=== PATIENT | female | born 1980 | race Hispanic/Latino ===

== ENCOUNTER 2020-04-12 11:34 | Outpatient (CLI) | payer BC, SELFPAY ==
--- NOTE | ~2020-04-12 | XR_ITS ---
XR chest 2V DATE: 04/12/2020 11:52 INDICATION: Cough. Fever. Shortness of breath. Covid-positive. TECHNIQUE: PA and lateral views COMPARISON: 08/18/2014 PA and lateral chest FINDINGS: Normal heart size. No hilar or mediastinal enlargement. No pulmonary infiltrate or consolid ation, pleural effusion or pulmonary vascular congestion or pneumothorax. Postoperative changes of the left and right upper quadrants of the abdomen. IMPRESSION: No active cardiopulmonary disease Postoperative changes of left and right upper quadrants of the abdomen Reviewed, dictated and finalized at location A. LRY SORTER
== END 2020-04-12 11:35 | disposition home or self-care (01) ==
PROVIDERS: PCP Nurse Practitioner; Visit Provider Nurse Practitioner
DX: Z09 Encounter for follow-up examination after completed treatment for conditions other than malignant neoplasm (principal); Z86.19 Personal history of other infectious and parasitic diseases; R05 Cough; R50.9 Fever, unspecified; R06.02 Shortness of breath
CPT/HCPCS: 71046

== ENCOUNTER 2021-09-25 14:50 | Outpatient (CLI) | payer BC, SELFPAY ==
--- NOTE | ~2021-09-25 | US_ITS ---
EXAMINATION: US pelvic complete w TV DATE: 09/25/2021 15:43 INDICATION: Pelvic and perineal pain Comparison:No prior studies for comparison. TECHNIQUE: Multiple transabdominal and endovaginal sonographic images of the pelvis performed. FINDINGS: The uterus is surgically absent. The right ovary measures 3.4 x 3.5 x 1.8 cm and the left ovary is not visualized. There are small fol licles in each ovary. Normal doppler signal in both ovaries. There is free fluid in the pelvis. There are no abnormal masses seen on either side. IMPRESSION: 1. Unremarkable pelvic ultrasound. Reviewed, dictated and finalized at location A.
== END 2021-09-25 14:51 | disposition home or self-care (01) ==
PROVIDERS: PCP Nurse Practitioner; Visit Provider Nurse Practitioner
DX: R10.2 Pelvic and perineal pain (principal)
CPT/HCPCS: 76830; 76856

== ENCOUNTER 2021-10-24 09:07 | Emergency (ER) | payer BC, SELFPAY ==
--- NOTE | 2021-10-24 09:13 | ED.ALLEREA ---
HPI - Allergic Reaction General Chief complaint: Skin/Abscess/Foreign Body Stated complaint: Facial Swelling Time Seen by Provider: 10/24/21 09:35 Source: patient Mode of arrival: ambulatory Limitations: no limitations History of Present Illness HPI narrative: 40-year-old female presents with concern for facial pain and swelling. She reports pain on the inside of her mouth the top of her gum that started yesterday. Reports today the pain spread to her cheek. She reports it is tender. She denies fever, trouble swallowing, swollen lips or swollen tongue. She reports she has no top teeth, she has a full denture. She reports a denture is not new and does not cause her any discomfort. MD complaint: facial swelling Related Data Home Medications Medication Instructions Recorded Confirmed linaclotide 290 mcg capsule 290 mcg PO DAILY 12/29/19 10/24/21 (Linzess) galcanezumab-gnlm 120 mg/mL 120 mg subcut MONTHLY 02/06/21 10/24/21 subcutaneous pen injector gabapentin 300 mg capsule 300 mg PO QHS 08/15/21 10/24/21 rizatriptan 10 mg tablet 10 mg PO DAILY 08/15/21 10/24/21 Allergies Allergy/AdvReac Type Severity Reaction Status Date / Time aspirin Allergy Unknown Hives / Unverified 10/16/21 09:26 Red Face ondansetron Allergy Unknown Hives Verified 10/16/21 09:26 sumatriptan Allergy Unknown Hives Verified 10/16/21 09:26 Review of Systems Review of Systems: CONSTITUTIONAL: Denies malaise, chills, sweats, or fever. EYES: Denies visual changes, redness, or discharge. ENT: Denies rhinorrhea, congestion, sinus pain, otalgia or sore throat. Denies dental pain CARDIOVASCULAR: Denies chest pain, palpitations, or edema. RESPIRATORY: Denies cough or dyspnea. GASTROINTESTINAL: Denies abdominal pain, nausea, vomiting, SKIN: Reports left-sided facial tenderness and mild swelling near the mouth MUSCULOSKELETAL: Denies myalgia. NEUROLOGIC: Denies numbness, weakness, or headache. All systems reviewed & are unremarkable except as noted in HPI and below PMFSH Past Medical History Medical History (Updated 10/24/21 @ 09:48 by Isamar Moon NP) Dyslipidemia History of 2019 novel coronavirus disease (COVID-19) Hypothyroidism (acquired) Irritable bowel syndrome with constipation Migraine Rosacea Surgical History Surgical History (Updated 10/16/21 @ 09:58 by Argeila De La Cruz APRN) H/O removal of neck cyst 2006 H/O: hysterectomy 2014 History of 2000 and 2002 History of sleeve gastrectomy 09/2017 History of tubal ligation 2002 Family History Family History Other Diabetes mellitus Family history of coronary artery disease Hypertension Social History Social History Social History: one can of soda qd Smoking status: Never smoker Alcohol intake: current Alcohol use details: occasionally Comments At time of signature, agree with nursing past medical, surgical, social and family history. There is no relevant family history pertinent to the presenting complaint Exam Narrative: GENERAL: Well-appearing, well-nourished, and in no acute distress. HEAD: Normocephalic, atraumatic. EYES: PERRLA, sclera clear, and EOMI. ENT: Nares clear, turbinates pink, no rhinorrhea or epistaxis. Mucous membranes moist. TM pearly jovel with sharp light reflex bilaterally; no tragal tenderness. No soft palate edema. Tonsils not enlarged and without exudate. Erythema, purulent drainage noted at the juncture of the gumline in the inner lip, tenderness to the face near that area. Patient andontic NECK: Supple. No lymphadenopathy. CHEST: No respiratory distress. Clear to auscultation. No bony deformities, no asymmetry. Speaks in full sentences. HEART: Regular rate and rhythm. SKIN: Warm, dry, no visible rash. NEURO: Alert and oriented x3. No focal deficits. PSYCH: Normal mood and affect Course Cour
[2021-10-24 09:23] VITALS: BP 125/68; PULSE 70; RESP 16; TEMP 36.8; O2SAT 100
== END 2021-10-24 09:50 | disposition home or self-care (01) ==
PROVIDERS: Emergency Provider Nurse Practitioner; PCP Family Medicine
DX: L08.9 Local infection of the skin and subcutaneous tissue, unspecified (principal); E78.5 Hyperlipidemia, unspecified; E03.9 Hypothyroidism, unspecified; Z86.16 Personal history of COVID-19
CPT/HCPCS: 99213; G0463

== ENCOUNTER 2021-12-12 01:44 | Day surgery (SDC) | payer BC, SELFPAY ==
[2021-11-26 13:25] VITALS: BMI 31.2
[2021-12-12 06:10] VITALS: BP 125/78; PULSE 60; RESP 18; TEMP 36.6; O2SAT 99; BMI 31.5
[2021-12-12] MEDS: LACTATED RINGERS 1,000 ML 150 ML IV CONT (06:35)
--- NOTE | 2021-12-12 07:21 | WPDANESEPPF ---
Anes - Initial Pre Proc Eval Procedure: Operation Date: 12/12/21 07:30 Proposed Procedures p Screening Colonoscopy - Santo Domínguez MD Date/Time: 12/12/21 07:21 Surgeon: Santo Domínguez MD Pre Op Diagnosis: IBS-C; abdominal pain Patient Data Age: 40 Gender: F Height: 1.57 m Weight: 78.2 kg Last Vital Signs Temp 97.8 F 12/12/21 06:10 Pulse 60 12/12/21 06:10 Resp 18 12/12/21 06:10 BP 125/78 12/12/21 06:10 Pulse Ox 99 12/12/21 06:10 O2 Del Method Room Air 12/12/21 06:10 Allergies Allergy/AdvReac Type Severity Reaction Status Date / Time aspirin Allergy Unknown Hives / Verified 12/12/21 06:23 Red Face ondansetron Allergy Unknown Hives Verified 12/12/21 06:23 sumatriptan Allergy Unknown Hives Verified 12/12/21 06:23 Home Medications Medication Instructions Recorded Confirmed Type linaclotide 290 mcg capsule 290 mcg PO DAILY 12/29/19 12/12/21 History (Linzess) galcanezumab-gnlm 120 mg/mL 120 mg subcut MONTHLY 02/06/21 12/12/21 History subcutaneous pen injector (Emgality Pen) atorvastatin 10 mg tablet 10 mg PO QHS #90 tabs 06/15/21 12/12/21 Rx fluoxetine 40 mg capsule 40 mg PO DAILY #90 caps 07/10/21 12/12/21 Rx gabapentin 300 mg capsule 300 mg PO BID 08/15/21 12/12/21 History rizatriptan 10 mg tablet 10 mg PO DAILY 08/15/21 12/12/21 History levothyroxine 88 mcg tablet 88 mcg PO DAILY 11/26/21 12/12/21 History buspirone 10 mg tablet 10 mg PO TID #90 tabs 12/05/21 12/12/21 Rx plecanatide 3 mg tablet (Trulance) 3 mg PO DAILY #90 tabs 12/10/21 12/12/21 Rx Patient hx anesthesia problems: none Family hx anesthesia problems: none Results Review: All pre-operative results and documents have been reviewed as part of the pre-operative evaluation. [facility] Past Medical History Medical History Dyslipidemia History of 2019 novel coronavirus disease (COVID-19) Hypothyroidism (acquired) Irritable bowel syndrome with constipation Migraine Rosacea Surgical History Surgical History H/O removal of neck cyst 2006 H/O: hysterectomy 2014 History of 2000 and 2002 History of sleeve gastrectomy 09/2017 History of tubal ligation 2002 Family History Family History Other Diabetes mellitus Family history of coronary artery disease Hypertension Social History Social History Social History: one can of soda qd Smoking status: Never smoker Alcohol intake: current Alcohol use details: occasionally Substance use: former Substance use type: marijuana Other substance usage details: eidbles on occasion Living arrangements: with family Spiritual care concerns: No Anes - Eval Final PreProcedure Day of Procedure 12/12/21 07:21 Patient weight: overweight Heart: regular rate and rhythm Lungs: clear to auscultation Airway: Mallampati scale class II Neurological: alert and oriented Last oral intake: >/= 8 hours ASA classification: II Emergent: no Anesthetic plan: proceed Anesthesia type and monitoring: general GIVS and standard monitoring Results Review: All pre-operative results and documents have been reviewed as part of the pre-operative evaluation. Informed Consent: The patient's anesthetic plan and its attendant risks and benefits were discussed with the patient/family/POA. Questions were solicited and answers provided to the satisfaction of the patient/family/POA.
--- NOTE | 2021-12-12 07:24 | WPDHPUPDATE1 ---
History and Physical Update Update Date/Time: 12/12/21 07:24 History and Physical has been reviewed, including an updated exam of the patient. There are NO changes in the patient's condition. Risks, benefits, and alternatives have been discussed and questions answered. Patient agrees to proceed with procedure.
[2021-12-12 07:41] VITALS: BP 113/77; PULSE 62; RESP 21; O2SAT 99
[2021-12-12 07:51] VITALS: BP 120/88; PULSE 55; RESP 18; O2SAT 99
[2021-12-12 08:01] VITALS: BP 126/85; PULSE 52; RESP 17; O2SAT 99
== END 2021-12-12 08:05 | disposition home or self-care (01) ==
PROVIDERS: PCP Family Medicine; Visit Provider Internal Medicine Gastroenterology
PROC: 0DJD8ZZ Inspection of Lower Intestinal Tract, Via Natural or Artificial Opening Endoscopic (ICD-10-PCS; CPT 45378; principal; 2021-12-12 07:30)
DX: Z12.11 Encounter for screening for malignant neoplasm of colon (principal); K58.1 Irritable bowel syndrome with constipation; K64.8 Other hemorrhoids; E78.5 Hyperlipidemia, unspecified; E03.9 Hypothyroidism, unspecified; Z86.16 Personal history of COVID-19; Z98.84 Bariatric surgery status; F12.90 Cannabis use, unspecified, uncomplicated
CPT/HCPCS: 45378; J2704; J7120

== ENCOUNTER 2023-02-18 18:04 | Emergency (ER) | payer BC, SELFPAY ==
[2023-02-18 18:14] VITALS: BP 118/73; PULSE 73; RESP 18; TEMP 36.9; O2SAT 96
--- NOTE | 2023-02-18 18:22 | ED.URI ---
HPI - URI/Sore Throat General Chief Complaint: Upper Respiratory Infection Stated Complaint: throat/left ear/headache Source: patient and RN notes reviewed Mode of arrival: ambulatory Limitations: no limitations History of Present Illness HPI Narrative: Patient is a 42-year-old female who who presents with complaints of sore throat starting on . Patient states that on Friday, she developed a headache. she states that she developed left ear pain on Friday along with some mild nasal congestion. She states that the sore throat and headache has continued throughout this time. she also endorses an infrequent nonproductive cough. Denies known fevers. Related Data Home Medications Medication Instructions Recorded Confirmed linaclotide 290 mcg capsule 290 mcg PO DAILY 12/29/19 02/18/23 (Linzess) galcanezumab-gnlm 120 mg/mL 120 mg subcut MONTHLY 02/06/21 02/18/23 subcutaneous pen injector (Emgality Pen) gabapentin 300 mg capsule 300 mg PO BID 08/15/21 02/18/23 rizatriptan 10 mg tablet 10 mg PO DAILY 08/15/21 02/18/23 atogepant 30 mg tablet (Qulipta) 30 mg PO DAILY 09/16/22 02/18/23 omeprazole 40 mg capsule,delayed 40 mg PO DAILY 09/16/22 02/18/23 release Allergies Allergy/AdvReac Type Severity Reaction Status Date / Time aspirin Allergy Unknown Hives / Verified 02/18/23 18:22 Red Face ondansetron Allergy Unknown Hives Verified 02/18/23 18:22 sumatriptan Allergy Unknown Hives Verified 02/18/23 18:22 Review of Systems Review of Systems: CONSTITUTIONAL: Denies fever, chills, or sweats. EYES: Denies visual changes, redness, or discharge. ENT: Reports left otalgia and sore throat. Reports congestion. CARDIOVASCULAR: Denies chest pain, palpitations, or edema. RESPIRATORY: Reports cough but denies dyspnea. GASTROINTESTINAL: Denies abdominal pain, nausea, vomiting, or diarrhea. GENITOURINARY: Denies dysuria or hematuria. SKIN: Denies rash or itching. MUSCULOSKELETAL: Denies back pain, joint pain, or myalgia. NEUROLOGIC: Denies numbness or weakness. Reports headache. Pertinent positives per HPI. PMF Past Medical History Medical History Colon cancer screening Dyslipidemia Heart murmur History of 2019 novel coronavirus disease (COVID-19) Hypothyroidism (acquired) Irritable bowel syndrome with constipation Migraine Rosacea Screening for breast cancer Soreness breast Surgical History Surgical History H/O removal of neck cyst 2006 H/O: hysterectomy 2014 History of 2000 and 2002 History of sleeve gastrectomy 09/2017 History of tubal ligation 2002 Family History Family History Other Diabetes mellitus Family history of coronary artery disease Hypertension Social History Social History Social History: one can of soda qd Smoking status: Never smoker Alcohol intake: current Alcohol use details: occasionally Substance use: former Substance use type: marijuana Other substance usage details: eidbles on occasion Lack of Transportation: No Lack of Food: Never True Current Housing: I Have Housing Concerned About Future Housing: No Difficulty Paying Gas/Electric Bills: Decline to Answer Difficulty Paying for Meds: Decline to Answer Currently Unemployed: No Education: High School Diploma/GED Difficulty w/ Childcare or Family Care: No Living arrangements: with family Gender identity (if verbalized by the patient): Female Spiritual care concerns: No Agree to blood products: Yes Comments At the time of my signature, I reviewed and agree with the nursing past medical, surgical, social, and family history. There is no relevant family history pertinent to the patient complaint. Exam Narrative: GENERAL:
== END 2023-02-18 18:47 | disposition home or self-care (01) ==
PROVIDERS: Emergency Provider Nurse Practitioner; PCP Family Medicine
DX: J02.9 Acute pharyngitis, unspecified (principal); E78.5 Hyperlipidemia, unspecified; R01.1 Cardiac murmur, unspecified; E03.9 Hypothyroidism, unspecified; Z86.16 Personal history of COVID-19; Z98.84 Bariatric surgery status
CPT/HCPCS: 87081; 87880; 99213; G0463

== ENCOUNTER → 2023-06-30 12:34 | Outpatient (CLI) | payer BC, SELFPAY ==
--- NOTE | ~2023-06-30 | MM_ITS ---
EXAMINATION: MM screening michael BI w caden HISTORY: Screening TECHNIQUE: Craniocaudal and mediolateral oblique 3-D tomosynthesis images were obtained and synthetic 2-D images were generated. CAD analysis was submitted and interpreted. COMPARISON: No prior mammogram is available for comparison at this institution. BREAST PARENCHYMAL COMPOSITION: Not dense: There are scattered areas of fibroglandular density. FINDINGS: There are clustered nodular asymmetries in the upper outer quadrant of the right breast. Th ere is no mammographic evidence for malignancy in the left breast. IMPRESSION: 1. Clustered nodular asymmetries in the upper outer quadrant of the right breast. 2. Additional mammographic views and possible breast ultrasound are recommended. BI-RADS Category 0: Incomplete: Needs additional imaging evaluation. Reviewed, dictated and finalized at location A. TANK BUILDER IMPRESSION: 1. Clustered nodular asymmetries in the upper outer quadrant of the right breas t. 2. Additional mammographic views and possible breast ultrasound are recommended . BI-RADS Category 0: Incomplete: Needs additional imaging evaluation.
== END ==
PROVIDERS: PCP Nurse Practitioner Family; Visit Provider Nurse Practitioner Family
DX: Z12.31 Encounter for screening mammogram for malignant neoplasm of breast (principal); R92.8 Other abnormal and inconclusive findings on diagnostic imaging of breast
CPT/HCPCS: 77063; 77067

== ENCOUNTER 2023-07-28 08:39 | Outpatient (CLI) | payer BC, SELFPAY ==
--- NOTE | ~2023-07-28 | MMUS_ITS ---
EXAMINATION: MM diagnostic michael RT w caden, US breast RT limited HISTORY: Clustered nodular asymmetries reported in upper outer quadrant of right breast on June 062023 screening mammogram TECHNIQUE: Additional 3-D tomosynthesis images of the right breast were performed and synthetic 2-D i mages were generated. CAD analysis was submitted and interpreted. High resolution upper outer quadran t right breast ultrasound was performed. COMPARISON: June 30, 2023 bilateral screening mammogram FINDINGS: MAMMOGRAPHIC FINDINGS: Slightly nodular fibroglandular stroma. No suspicious mass, architectural distortion, malignant calci fication, skin thickening or retraction is detected. ULTRASOUND: 10:00 5 cm from nipple: Contiguous 5.6 and 3.4 mm cysts 10-11:00 7 cm from nipple: 3.5 x 4.6 mm simple cyst 11:00 5 cm from nipple: Septated approximately 5.7 x 11 mm cyst No suspicious mass or shadowing is detected. IMPRESSION: 1. Benign cysts; no mammographic or sonographic evidence of malignancy 2. Routine annual mammographic screening is recommended BI-RADS Category 2: Benign finding(s). Reviewed, dictated and finalized at location A. IMPRESSION: 1. Benign cysts; no mammographic or sonographic evidence of malignancy 2. Routine annual mammographic screening is recommended BI-RADS Category 2: Benign finding(s).
== END 2023-07-28 08:40 ==
PROVIDERS: PCP Nurse Practitioner Family; Visit Provider Family Medicine
DX: R92.8 Other abnormal and inconclusive findings on diagnostic imaging of breast (principal)
CPT/HCPCS: 76642; 77061; 77065; G0279

== ENCOUNTER 2023-11-28 12:10 | Outpatient (CLI) | payer BC, SELFPAY ==
[2023-11-28 12:31] LABS: Hematocrit 38.9 % (37.0-47.0); Hemoglobin 12.6 g/dL (12.0-15.0); Mean Corpuscular HGB Conc 32.4 g/dl (32-36); Mean Corpuscular Hemoglobin 28.1 pg (26-34); Mean Corpuscular Volume 86.6 fl (80-100); Platelet Count Result 311 k/mm3 (150-375); Red Blood Count 4.49 M/mm3 (4.2-5.4); Red Cell Distribution Width 12.9 % (11.5-14.5); White Blood Count 6.6 K/mm3 (4.5-10.0)
[2023-11-28 12:46] LABS: Alanine Aminotransferase 12 U/L (6-35); Albumin Level 4.5 g/dL (3.5-5.1); Alkaline Phosphatase 83 U/L (38-126); Anion Gap 9 mmol/L (4-12); Aspartate Amino Transferase 22 U/L (14-36); Bilirubin,Total 0.6 mg/dL (0.2-1.3); Blood Urea Nitrogen 7 mg/dL (7-17); Calcium 9.2 mg/dL (8.4-10.2); Carbon Dioxide 28 mmol/L (22-30); Chloride 103 mmol/L (98-107); Cholesterol 209 mg/dL (0-200); Estimated Glomerular Filt Rate > 60; Glucose 83 mg/dL (65-110); HDL Direct 53 mg/dL; Hemoglobin A1C 5.7 % (<5.7); Potassium 3.7 mmol/L (3.4-5.0); Sodium 140 mmol/L (137-145); Triglycerides 89 mg/dL (<150)
[2023-11-28 12:57] LABS: LDL Cholesterol Direct 117 mg/dL
[2023-12-03 10:33] LABS: Vitamin D 1,25 (OH)2 Total 63 pg/mL (18-72); Vitamin D2 1,25 (OH)2 <8 pg/mL; Vitamin D3 1,25 (OH)2 63 pg/mL
[2023-12-08 00:28] LABS: Estradiol, Ultrasensitive 47 pg/mL
== END 2023-11-28 12:11 | disposition home or self-care (01) ==
LOC: ANHLAB 12:11
PROVIDERS: PCP Nurse Practitioner Family; Visit Provider Nurse Practitioner Family
DX: Z00.00 Encounter for general adult medical examination without abnormal findings (principal); E03.9 Hypothyroidism, unspecified; E78.5 Hyperlipidemia, unspecified; F32.A Depression, unspecified; F41.9 Anxiety disorder, unspecified; G43.909 Migraine, unspecified, not intractable, without status migrainosus; K58.1 Irritable bowel syndrome with constipation; L71.9 Rosacea, unspecified; R73.03 Prediabetes; E55.9 Vitamin D deficiency, unspecified; E53.8 Deficiency of other specified B group vitamins; Z13.29 Encounter for screening for other suspected endocrine disorder
CPT/HCPCS: 36415; 80053; 80061; 82607; 82652; 82670; 83036; 84443; 85027

== ENCOUNTER 2024-01-14 11:28 | Outpatient (CLI) | payer BC, SELFPAY ==
[2024-01-14 22:01] LABS: Free T4 Free Thyroxine Reflex 0.71 ng/dL (0.78-2.19)
== END 2024-01-14 11:29 | disposition home or self-care (01) ==
LOC: ANHGOSHLAB 11:30
PROVIDERS: PCP Family Medicine; Visit Provider Family Medicine
DX: E03.9 Hypothyroidism, unspecified (principal)
CPT/HCPCS: 36415; 84439; 84443

== ENCOUNTER 2024-07-13 08:18 | Outpatient (CLI) | payer BC, SELFPAY ==
--- NOTE | ~2024-07-13 | MM_ITS ---
EXAMINATION: MM diagnostic michael BI w caden HISTORY: Bilateral breast pain TECHNIQUE: 3-D tomosynthesis images of the breasts were performed and synthetic 2-D images were gener ated. CAD analysis was submitted and interpreted. COMPARISON: 06/30/2023 BREAST PARENCHYMAL COMPOSITION:Not Dense. There are scattered areas of fibroglandular density. FINDINGS: Parenchymal pattern of the breasts is unchanged. No suspicious mass lesion or distortion. N o suspicious microcalcifications. IMPRESSION: No mammographic evidence for malignancy. BI-RADS Category 1: Negative Reviewed, dictated and finalized at location .
== END 2024-07-13 08:19 | disposition home or self-care (01) ==
LOC: MICIMG 08:18
PROVIDERS: PCP Family Medicine; Visit Provider Student in an Organized Health Care Education/Training Program
DX: N64.4 Mastodynia (principal)
CPT/HCPCS: 77062; 77066; G0279

== ENCOUNTER 2024-08-18 15:37 | Outpatient (CLI) | payer BC, SELFPAY ==
--- OUTSIDE RECORDS SUMMARY | 2024-08-18 16:42 | XMS_ITS | Clinical Summary ---
Author Organization [facility] Address [address] [place] [address] Care Team Providers Care Shirt Sorter Name Role Phone Laith Krishnamurthy MD Primary Care Provider Travis Fuentes STATION BAGGAGE AGENT Unavailable [phone] Allergies Active Allergy Reactions Criticality Noted Date Comments Aspirin Hives Medium Ibuprofen Stomach upset Low 04/27/2023 GI inflammation Ondansetron Hcl Hives Medium 10/09/2017 Medications levothyroxine sodium (TIROSINT) 88 mcg capsule 1 capsule (88 mcg total) 06/28/2017 Active Linzess 290 mcg capsule Take 1 capsule (290 mcg total) by mouth daily 05/10/2020 Active atorvastatin (LIPITOR) 10 mg tablet Take 1 tablet (10 mg total) by mouth daily 07/03/2020 Active ubrogepant (Ubrelvy) 100 mg tablet TAKE 1 TABLET BY MOUTH AT ONSET OF HEADACHE, MAY REPEAT ONCE IN 2 HOURS IF NEEDED, MAX 2 TABS/24 HRS 10 tablet 5 01/15/2021 Active busPIRone (BUSPAR) 5 mg tablet Take 2 tablets (10 mg total) by mouth 3 (three) times a day Active Qulipta 60 mg tablet Take 1 tablet by mouth daily Active buPROPion XL (WELLBUTRIN XL) 300 mg 24 hr tablet Take 1 tablet (300 mg total) by mouth every morning 11/20/2023 Active estradioL (ESTRACE) 1 mg tablet Take 1 tablet (1 mg total) by mouth daily Active pantoprazole DR (PROTONIX) 40 mg EC tablet Take 1 tablet (40 mg total) by mouth every morning 11/20/2023 Active phentermine (ADIPEX-P) 37.5 mg tablet Take 1 tablet (37.5 mg total) by mouth every morning Active sucralfate (CARAFATE) 1 gram tablet Take 1 tablet (1 g total) by mouth 4 (four) times a day Active HYDROcodone-sridhar taminophen (NORCO) 5-325 mg per tabletIndicatio ns:Pain Take 1 tablet by mouth every 6 (six) hours as needed for pain 20 tablet 12/12/2023 Active oxyBUTYnin XL (DITROPAN-XL) 5 mg 24 hr tablet Take 1 tablet (5 mg total) by mouth daily for 14 days 14 tablet 12/12/2023 Active tamsulosin (FLOMAX) 0.4 mg extended release capsule Take 1 capsule (0.4 mg total) by mouth daily with dinner for 14 days 14 capsule 12/12/2023 Active Active Problems Problem Noted Date Diagnosed Date Kidney stone on left side 12/11/2023 Pyelonephritis 12/01/2023 Left ureteral stone 11/30/2023 Unilateral headache 08/25/2020 Chronic migraine without aur a without status migrainosus, not intractable 07/18/2020 Chronic tension-type headache, not intractable 0 07/18/2020 Surgical History Surgery Date Site/Laterality Comments OTHER SURGICAL HISTORY brachial cleft cyst left neck: excision. TUBAL LIGATION HYSTERECTOMY CHOLECYSTECTOMY BARIATRIC SURGERY gastric sleeve Medical History Medical History Date Comments Hx Other Medical C-sxn x 2 Hx Other Medical 2007 brachial cleft cyst left neck Hypothyroidism Hyperlipidemia Anxiety Depression Headache, tension-type Migraine Family History Medical History Relation Name Comments Other Father Healthy; Diabetes type II Maternal Grandmother D M Type II; Migraines Mother Other Mother Healthy; Diabetes type II Paternal Grandfather D M Type II; Relation Name Status Comments Father Alive Maternal Grandmother Alive Mother Alive Paternal Grandfather Alive Social History Tobacco Use Types Packs/Day Years Used Date Smoking Tobacco: Never Smokeless Tobacco: Never Alcohol Use Standard Drinks/Week Comments Yes 0 (1 standard drink = 0.6 oz pur e alcohol) [facility] Utilities Answer Date Recorded In the past 12 months has [employer], [employer], or [employer] threatened to shut off services in your home? No 12/01/2023 Social Connection and Isolat ion Panel [NHANES] Answer Date Recorded In a typical week, how many times do you talk on the phone with family, friends, or neighbors? More than three times a week 12/01/2023 How often do you get togethe r with friends or relatives? More than three times a week 12/01/2023 How often do you attend chur ch or buddhist services? Never 12/01/2023 Do you belong to any clubs o r organizations such as taoist groups, unions, fraternal or athletic groups, or school groups? No 12/01/2023 How often do you attend meet ings of the clubs or organizations you belong to? Never 12/01/2023 Are you , , di vorced, , never , or living with a partner? Living with partner 12/01/2023 AUDIT-C Answer Date Recorded Q1: How often do you have a drink containing alc ohol? Monthly or less 12/11/2023 Q2: How many drinks containi ng alcohol do you have on a typical day when you are drinking? 1 or 2 12/11/2023 Q3: How often do you have si x or more drinks on one occasion? Less than monthly 12/11/2023 Overall Financial Resource Strain (CARDIA) Answe r Date Recorded How hard is it for you to pa y for the very basics like food, housing, medical care, and heating? Not hard at all 12/01/2023 PHQ-2 Answer Date Recorded PHQ-2 Total Score (If total score is 3 or more points, staff should administer the PHQ-9) 0 12/11/2023 Hunger Vital Sign Answer Date Recorded Within the past 12 months, y ou worried that your food would run out before you got the money to buy more. Never true 12/01/19 24 Within the past 12 months, t he food you bought just didn't last and you didn't have money to get more. Never true 12/01/2023 PRAPARE - Transportation Answer Date Re corded In the past 12 months, has l ack of transportation kept you from medical appointments or from getting medications? No 11/03 In the past 12 months, has l ack of transportation kept you from meetings, work, or from getting things needed for daily living? No 12/01/2023 Housing Stability Vital Sign Answer Fco e Recorded In the last 12 months, was t here a time when you were not able to pay the mortgage or rent on time? No 12/01/2023 In the past 12 months, how m any times have you moved where you were living? 0 12/01/2023 At any time in the past 12 m [facility], were you homeless or living in a jail (including now)? No 12/01/2023 Personal Safety Answer Date Recorded Have you ever been in or are you currently in a harmful physical or emotional relationship or is someone making you feel afraid or unsafe? 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, cafeteria server Not on file Not on file Not on file Obstetrics History Last Filed Vital Signs Vital Sign Reading Time Taken Comments Blood Pressure 128/85 12/12/2023 7:40 AM CDT Pulse 68 12/12/2023 7:40 AM CDT Temperature 36.7 C (98.1 F) 12/12/2023 7:40 AM CDT Respiratory Rate 14 12/12/2023 7:40 AM CDT Oxygen Saturation 100% 12/12/2023 7:40 AM CDT Inhaled Oxygen Concentration - - Weight 99 kg (218 lb 4.8 oz) 12/11/2023 11:45 PM CDT Height 157.5 cm (5' 2 ) 12/11/2023 11:45 PM CDT Body Mass Index 39.93 12/11/2023 11:45 PM CDT Plan of Treatment Health Maintenance Due Date Last Done Comments Breast Cancer Screening-Mammogram 1980 Hepatitis C Screening 1980 DTaP/Tdap/Td Vaccine (1 - Tdap) 12/23/1991 Varicella Vaccines (1 of 2 - 13+ 2-dose series) 1993 Hepatitis B Screening 1998 Regular Well Visit/Exam 18-64 1998 Influenza Vaccine (#1) 2024 Depression Screening 12/10/2024 12/11/2023 HPV Vaccines Aged Out No longer eligi ble based on patient's age to complete this topic Pneumococcal vaccine <65 Aged Out No longer eligible based on patient's age to complete this topic Medical Devices Implanted Type Area Field Supervisor Seed Production Device Identifier Shelf Expiration Date Model / Serial / Lot [employer] Enrique Contour 6fr 24cm Large Inner Lumen Low Profile Bladder Yaya Taper Latex Free 180-222 - [id number] Implanted:Qty: 1 on 11/30/2023 by Harley Marcano MD at [facility] Left: Ureter [employer] Enrique 04/11/2026 [id number] / / [id number] Insurance [facility] ANTH ACCESS CHOICE Advance Directives For more information, please contact: [phone] * Full Code (Latest Code Status on File) Date Activated Date Inactivated Comments 12/11/2023 10:38 AM 12/12/2023 3:47 PM * Full Code Date Activated Date Inactivated Comments 11/30/2023 11:03 AM 12/03/2023 6:13 PM Care Teams Shirt Sorter Relationship Specialty Start Date End Date Laith Krishnamurthy MD PCP - General 03/28/19 Travis Fuentes NP Nurse Practitioner Urology 12/03/23
--- OUTSIDE RECORDS SUMMARY | 2024-08-18 16:42 | XMS_ITS | Encounter Summary ---
Author Organization [facility] Address [address] [place] [address] Phone Care Team Providers Care Wastewater Treatment Plant Supervisor Name Role Phone Laith Krishnamurthy MD Primary Care Provider Emy Pepe APRN, GARMENT SORTER Unavailable +- [phone] Tono Wade MD Unavailable [phone] Reason for Visit * Reason Comments Medication Refill Encounter Details Date Type Department Care Team (Late st Contact Info) Description 03/12/2020 Refill [facility] - Neurology - [place] #1 [place] [address] Tono Wade MD #2 [place] [address] Medication Refill Social History Tobacco Use Types Packs/Day Years Used Date Smoking Tobacco: Never Smokeless Tobacco: Never Alcohol Use Standard Drinks/Week Comments Yes 0 (1 standard drink = 0.6 oz pur e alcohol) occassional Comments No Sex and Gender Information Value Date Recorded Sex Assigned at Not on file Legal Sex Female 8:52 PM CDT Gender Identity Not on file Sexual Orientation Not on file COVID-19 Exposure Response Date Recorded In the last month, have you been in contact with someone who was confirmed or suspected to have Coronavirus / COVID-19? No / Unsure 02/18/2020 9:33 AM CDT documented as of this encounter Plan of Treatment Upcoming Encounters Date Type Department Care Team (Late st Contact Info) Description 08/27/2024 10:45 AM CDT Procedure Visit [facility] - Neurology [facility] [address] [place] [address] Emy Pepe APRN, GARMENT SORTER [address] [place] [address] Tono Wade MD [address] [place] [address] documented as of this encounter Visit Diagnoses Diagnosis Migraine without aura and without status migrainosus, not intractable Migraine without aura, without mention of intractable migraine without mention of status migrainosus documented in this encounter Care Teams Wastewater Treatment Plant Supervisor Relationship Specialty Start Date End Date Laith Krishnamurthy MD PCP - General Family Medicine 07/04/17 Emy Pepe APRN, GARMENT SORTER [address] [place] [address] Nurse Practitioner Advanced Practice Nurse 08/27/22 Tono Wade MD [address] [place] [address] Consulting Physician Neurology 05/28/24 documented as of this encounter
--- OUTSIDE RECORDS SUMMARY | 2024-08-18 16:42 | XMS_ITS | Encounter Summary ---
Author Organization [facility] Address [address] [place] [address] Phone Care Team Providers Care Industrial Engineering Intern Name Role Phone Laith Krishnamurthy MD Primary Care Provider Emy Pepe APRN, SANITARIAN Unavailable Tono Wade MD Unavailable [phone] Reason for Visit * Reason Comments Medication Refill Encounter Details Date Type Department Care Team (Late st Contact Info) Description 03/12/2023 Refill [facility] - Neurology - [place] [address]2 [place] [phone] Emy Pepe, STEPHANIA, SANITARIAN [address] [place] [address] Medication Refill Social History Tobacco Use Types [...] on file Sexual Orientation Not on file documented as of this encounter Miscellaneous Notes * Telephone Encounter - Carolina Tobar RN - 03/14/2023 11:20 AM CST Medication failed the protocol, provider to review and approve the medication order if appropriate. Requested Prescriptions Pending Prescriptions Disp Refills Ubrelvy 100 MG Tablet [Pharmacy Med Name: UBRELVY 100 MG TABLET] 16 Tablet 2 Sig: TAKE 1 TABLET BY MOUTH ONCE NEEDED FOR OTHER. *PA DENIED* Not Delegated - Off Protocol Failed - 03/12/2023 8:08 AM Failed - This refill cannot be delegated Passed - Visit with relevant provider in past 12 months or upcoming 90 days Recent Visits Date Type Provider Dept 10/11/22 Telemedicine Emy Pepe APRN, EDGRAD [facility] 08/27/22 Office Visit Emy Pepe APRN, EDGARD [facility] Neurology [facility] Showing recent visits within past 365 days and meeting all other requirements Future Appointments No visits were found meeting these conditions. Showing future appointments within next 90 days and meeting all other requirements STANT BOOKKEEPER documented in this encounter Plan of Treatment Upcoming Encounters Date Type Department Care Team (Late st Contact Info) Description 08/27/2024 10:45 AM CDT Procedure [facility] - Neurology [facility] #2 [place] [address] Emy Pepe APRN, SANITARIAN [address] [place] [address] Tono Wade MD [address] [place] [address] documented as of this encounter Visit Diagnoses Diagnosis Episodic migraine documented in this encounter Care Teams Industrial Engineering Intern Relationship Specialty Start Date End Date Laith Krishnamurthy MD PCP - General Family Medicine 07/04/17 Emy Pepe APRN, SANITARIAN [address] [place] [address] Nurse Practitioner Advanced Practice Nurse 08/27/22 Tono Wade MD [address]2 [place] [address] Consulting Physician Neurology 05/28/24 documented as of this encounter
--- OUTSIDE RECORDS SUMMARY | 2024-08-18 16:42 | XMS_ITS | Encounter Summary ---
Author Organization [facility] Address [address] [place] [address] Phone Care Team Providers Care Panel Installer Name Role Phone Laith Krishnamurthy MD Primary Care Provider Emy Pepe APRN, CARPENTER ROUGH Unavailable Tono Wade MD Unavailable [phone] Reason for Visit * Reason Comments Medication Refill Encounter Details Date Type Department Care Team (Late st Contact Info) Description 12/24/2022 Refill [facility] - Neurology [facility] #2 [place] [phone] Emy Pepe APRN, CARPENTER ROUGH [address] [place] [address] Medication Refill Social History Tobacco Use Types [...] Telephone Encounter - Carolina Tobar RN - 12/25/2022 8:16 AM CDT Medication failed the protocol, provider to review and approve the medication order if appropriate. Requested Prescriptions Pending Prescriptions Disp Refills Ubrelvy 100 MG Tablet [Pharmacy Med Name: UBRELVY 100 MG TABLET] 16 Tablet 2 Sig: TAKE 1 TABLET BY MOUTH ONCE NEEDED FOR OTHER. *PA DENIED* Not Delegated - Off Protocol Failed - 12/24/2022 7:45 PM Failed - This refill cannot be delegated Passed - Visit with relevant provider in past 12 months or upcoming 90 days Recent Visits Date Type Provider Dept 10/11/22 Telemedicine Emy Pepe APRN, EDGARD [facility] 08/27/22 Office Visit Emy Pepe APRN, EDGARD [facility] Neurology [facility] Showing recent visits within past 365 days and meeting all other requirements Future Appointments No visits were found meeting these conditions. Showing future appointments within next 90 days and meeting all other requirements documented in this encounter Plan of Treatment Upcoming Encounters Date Type Department Care Team (Late st Contact Info) Description 08/27/2024 10:45 AM CDT Procedure [facility] - Neurology [facility] #[address] [place] [address] Emy Pepe APRN, CARPENTER ROUGH [address] [place] [address] Tono Wade MD #2 [place] [address] documented as of this encounter Visit Diagnoses Diagnosis Episodic migraine documented in this encounter Care Teams Panel Installer Relationship Specialty Start Date End Date Laith Krishnamurthy MD PCP - General Family Medicine 07/04/17 Emy Pepe APRN, CARPENTER ROUGH [address] [place] [address] Nurse Practitioner Advanced Practice Nurse 08/27/22 Tono Wade MD [address] [address] Consulting Physician Neurology 05/28/24 documented as of this encounter
--- OUTSIDE RECORDS SUMMARY | 2024-08-18 16:42 | XMS_ITS | Encounter Summary ---
Author Organization [facility] Address [address] [place] [address] Phone Care Team Providers Care Presentation Designer Name Role Phone Laith Krishnamurthy MD Primary Care Provider Emy Pepe APRN, LEGAL INSTRUCTOR Unavailable Tono Wade MD Unavailable Encounter Details Date Type Department Care Team (Late st Contact Info) Description 08/17/2024 Telephone [facility] - Neurology [facility] #2 [place] [address] Tono Wade MD #2 [place] [address] Social History Tobacco Use Types Packs/Day Years [...] encounter Miscellaneous Notes * Telephone Encounter - Chanel Arrington RN - 08/17/2024 1:11 PM CDT LVM for return call. No auth on file for Botox at this time. Will need to reschedule. documented in this encounter Plan of Treatment Upcoming Encounters Date Type Department Care Team (Late st Contact Info) Description 08/27/2024 10:45 AM CDT Procedure Visit [facility] - Neurology [facility] #2 [place] [address] Emy Pepe APRN, LEGAL INSTRUCTOR [address] [place] [address] Tono Wade MD [address] [place] [address] documented as of this encounter Visit Diagnoses Not on filedocumented in this encounter Care Teams Presentation Designer Relationship Specialty Start Date End Date Laith Krishnamurthy MD PCP - General Family Medicine 07/04/17 Emy Pepe APRN, LEGAL INSTRUCTOR [address] [place] [address] Nurse Practitioner Advanced Practice Nurse 08/27/22 Tono Wade MD [address] [place] [address] Consulting Physician Neurology 05/28/24 documented as of this encounter
--- OUTSIDE RECORDS SUMMARY | 2024-08-18 16:42 | XMS_ITS | Encounter Summary ---
Author Organization [facility] Address [address] [place] [address] Phone Care Team Providers Care Drapery Seamstress Name Role Phone Laith Krishnamurthy MD Primary Care Provider Emy Pepe APRN, FUNERAL ASSISTANT Unavailable + [phone] Tono Wade MD Unavailable [phone] Reason for Visit * Reason Comments Medication Refill Encounter Details Date Type Department Care Team (Late st Contact Info) Description 11/24/2019 Refill [facility] Neurology [facility] #1 [facility] [place] [address] Tono Wade MD #2 [place] [address] Medication Refill Social History Tobacco [...] on file documented as of this encounter Plan of Treatment Upcoming Encounters Date Type Department Care Team (Late Contact Info) Description 08/27/2024 10:45 AM CDT Procedure Visit [facility] Neurology - [place] #2 [place] [address] Emy Pepe APRN, FUNERAL ASSISTANT #2 [place] [address] Tono Wade MD #2 [place] [address] documented as of this encounter Visit Diagnoses Not on filedocumented in this encounter Care Teams Drapery Seamstress Relationship Specialty Start Date End Date Laith Krishnamurthy MD PCP - General Family Medicine 07/04/17 Emy Pepe APRN, FUNERAL ASSISTANT [address] [place] [address] Nurse Practitioner Advanced Practice Nurse 08/27/22 Tono Wade MD #[address] [place] [address] Consulting Physician Neurology 05/28/24 documented as of this encounter
--- OUTSIDE RECORDS SUMMARY | 2024-08-18 16:42 | XMS_ITS | Encounter Summary ---
Author Organization [facility] Address [address] [place] [address] Phone Care Team Providers Care Accountancy Professor Name Role Phone Laith Krishnamurthy MD Primary Care Provider Emy Pepe APRN, LEAD DEVELOPER Unavailable + [phone] Tono Wade MD Unavailable [phone] Reason for Visit * Reason Comments Medication Refill Encounter Details Date Type Department Care Team (Late st Contact Info) Description 11/10/2019 Refill [facility] Neurology [facility] #1 [facility] [place] [address] Tono Wade MD #2 [place] [address] Medication Refill Social History Tobacco [...] Description 08/27/2024 10:45 AM CDT Procedure Visit [facility] Neurology - [place] #2 [place] [address] Emy Pepe APRN, LEAD DEVELOPER [address]2 [place] [address] Tono Wade MD #2 [place] [address] documented as of this encounter Visit Diagnoses Not on filedocumented in this encounter Care Teams Accountancy Professor Relationship Specialty Start Date End Date Laith Krishnamurthy MD PCP - General Family Medicine 07/04/17 Emy Pepe APRN, LEAD DEVELOPER #[address] [place] [address] Nurse Practitioner Advanced Practice Nurse 08/27/22 Tono Wade MD #2 [place] [address] Consulting Physician Neurology 05/28/24 documented as of this encounter
--- OUTSIDE RECORDS SUMMARY | 2024-08-18 16:42 | XMS_ITS | Encounter Summary ---
Author Organization [facility] Address [address] [place] [address] Phone Care Team Providers Care Enterostomal Nurse Name Role Phone Laith Krishnamurthy MD Primary Care Provider Emy Pepe APRN, QUILLER MACHINE FIXER Unavailable + [phone] Tono Wade MD Unavailable [phone] Reason for Visit * Reason Comments Medication Refill Encounter Details Date Type Department Care Team (Late st Contact Info) Description 12/30/2019 [facility]ill [facility] - [place] #1 [place] [address] Tono Wade MD #[address] [place] [address] Medication Refill Social History Tobacco [...] encounter Miscellaneous Notes * Telephone Encounter - Natasha Carvajal RN - 12/31/2019 7:58 AM CDT Refill requested too soon. Script sent to pharmacy 9 days ago documented in this encounter Plan of Treatment Upcoming Encounters Date Type Department Care Team (Late st Contact Info) Description 08/27/2024 10:45 AM CDT [facility] #2 [place] [address] Emy Pepe APRN, QUILLER MACHINE FIXER #2 [place] [address] Tono Wade MD #2 [place] [address] documented as of this encounter Visit Diagnoses Not on filedocumented in this encounter Care Teams Enterostomal Nurse Relationship Specialty Start Date End Date Laith Krishnamurthy MD PCP - General Family Medicine 07/04/17 Emy Pepe APRN, QUILLER MACHINE FIXER [address] [place] [address] Nurse Practitioner Advanced Practice Nurse 08/27/22 Tono Wade MD #[address] [place] [address] Consulting Physician Neurology 05/28/24 documented as of this encounter
--- OUTSIDE RECORDS SUMMARY | 2024-08-18 16:42 | XMS_ITS | Encounter Summary ---
Author Organization [facility] Address [address] [place] [address] Phone Care Team Providers Care Cd Mixer Name Role Phone Laith Krishnamurthy MD Primary Care Provider Emy Pepe APRN, ENTERPRISE SECURITY ARCHITECT Unavailable + [phone] Tono Wade MD Unavailable [phone] Reason for Visit * Reason Comments Medication Refill Encounter Details Date Type Department Care Team (Late st Contact Info) Description 2019 Refill [facility] Neurology [facility] #1 [facility] [address] Tono Wade MD #2 [place] [address] Medication Refill Social History Tobacco [...] Description 08/27/2024 10:45 AM CDT Procedure Visit [facility] Neurology - [place] #2 [place] [address] Emy Pepe APRN, ENTERPRISE SECURITY ARCHITECT #2 [place] [address] Tono Wade MD #2 [place] [address] documented as of this encounter Visit Diagnoses Not on filedocumented in this encounter Care Teams Cd Mixer Relationship Specialty Start Date End Date Laith Krishnamurthy MD PCP - General Family Medicine 07/04/17 Emy Pepe APRN, ENTERPRISE SECURITY ARCHITECT #[address] [place] [address] Nurse Practitioner Advanced Practice Nurse 08/27/22 Tono Wade MD #[address] [place] [address] Consulting Physician Neurology 05/28/24 documented as of this encounter
--- OUTSIDE RECORDS SUMMARY | 2024-08-18 16:42 | XMS_ITS | Encounter Summary ---
Author Organization [facility] Address [address] [place] [address] Phone Care Team Providers Care Line Controller Name Role Phone Laith Krishnamurthy MD Primary Care Provider Emy Pepe APRN, CLINICAL DOCUMENT IMPROVEMENT EDUCATOR Unavailable Tono Wade MD Unavailable [phone] Reason for Visit * Reason Comments Medication Refill Encounter Details Date Type Department Care Team (Late st Contact Info) Description 07/08/2023 Refill [facility] - Neurology [facility] #2 [place] [address] Emy Pepe APRN, CLINICAL DOCUMENT IMPROVEMENT EDUCATOR #2 [place] [address] Medication Refill Social History Tobacco Use Types [...] Telephone Encounter - Carolina Tobar RN - 07/09/2023 8:13 AM CST Medication failed the protocol, provider to review and approve the medication order if appropriate. Requested Prescriptions Pending Prescriptions Disp Refills Qulipta 60 MG Tablet [Pharmacy Med Name: QULIPTA 60 MG TABLET] 30 Tablet 2 Sig: TAKE 1 TABLET BY MOUTH EVERY DAY Not Delegated - Off Protocol Failed - 07/08/2023 8:29 PM Failed - This refill cannot be delegated Passed - Visit with relevant provider in past 12 months or upcoming 90 days Recent Visits Date Type Provider Dept 10/11/22 Telemedicine Emy Pepe APRN, EDGARD [facility] 08/27/22 Office Visit Emy Pepe APRN, EDGARD [facility] Neurology [facility] Showing recent visits within past 365 days and meeting all other requirements Future Appointments No visits were found meeting these conditions. Showing future appointments within next 90 days and meeting all other requirements ENT ACTIVITIES DIRECTOR documented in this encounter Plan of Treatment Upcoming Encounters Date Type Department Care Team (Late st Contact Info) Description 08/27/2024 10:45 AM CDT Procedure Visit [facility] - Neurology [facility] #2 [place] [address] Emy Pepe APRN, CLINICAL DOCUMENT IMPROVEMENT EDUCATOR #[address] [place] [address] Tono Wade MD #[address] [place] [address] documented as of this encounter Visit Diagnoses Diagnosis Episodic migraine documented in this encounter Care Teams Line Controller Relationship Specialty Start Date End Date Laith Krishnamurthy MD PCP - General Family Medicine 07/04/17 Emy Pepe APRN, CLINICAL DOCUMENT IMPROVEMENT EDUCATOR #[address] [place] [address] Nurse Practitioner Advanced Practice Nurse 08/27/22 Tono Wade MD #2 [place] [address] Consulting Physician Neurology 05/28/24 documented as of this encounter
--- OUTSIDE RECORDS SUMMARY | 2024-08-18 16:42 | XMS_ITS | Encounter Summary ---
Author Organization [facility] Address [address] [place] [address] Phone Care Team Providers Care Armature Connector Name Role Phone Laith Krishnamurthy MD Primary Care Provider Emy Pepe APRN, ELEMENTARY SUPERVISOR Unavailable + [phone] Tono Wade MD Unavailable [phone] Reason for Visit * Reason Comments Medication Refill Encounter Details Date Type Department Care Team (Late st Contact Info) Description 12/25/2020 [facility] [address] [phone] Tono Wade MD #2 [place] [address] Medication Refill Social History Tobacco [...] Description 08/27/2024 10:45 AM CDT [facility] #2 [place] [address] Emy Pepe APRN, ELEMENTARY SUPERVISOR #2 [place] [address] Tono Wade MD #2 [place] [address] documented as of this encounter Visit Diagnoses Diagnosis Migraine without aura and without status migrainosus, not intractable Migraine without aura, without mention of intractable migraine without mention of status migrainosus documented in this encounter Care Teams Armature Connector Relationship Specialty Start Date End Date Laith Krishnamurthy MD PCP - General Family Medicine 07/04/17 Emy Pepe APRN, ELEMENTARY SUPERVISOR #[address] [place] [address] Nurse Practitioner Advanced Practice Nurse 08/27/22 Tono Wade MD #2 [place] [address] Consulting Physician Neurology 05/28/24 documented as of this encounter
--- OUTSIDE RECORDS SUMMARY | 2024-08-18 16:42 | XMS_ITS | Encounter Summary ---
Author Organization [facility] Address [address] [place] [address] Phone Care Team Providers Care Grocery Associate Name Role Phone Laith Krishnamurthy MD Primary Care Provider Emy Pepe APRN, EDGARD Unavailable [phone] Tono Wade MD Unavailable [phone] Encounter Details Date Type Department Care Team (Late st Contact Info) Description 08/08/2024 Results Follow-Up [facility] - Neurology [facility] #2 [place] [address] Emy Pepe APRN, API PRODUCT MANAGER #2 [place] [address] Social History Tobacco Use Types Packs/Day Years [...] on file documented as of this encounter Progress Notes * Emy Pepe APRN, EDGARD - 08/08/2024 9:54 AM CDT Please let Nuris know that her MRI was normal. documented in this encounter Plan of Treatment Upcoming Encounters Date Type Department Care Team (Late st Contact Info) Description 08/27/2024 10:45 AM CDT Procedure Visit [facility] - Neurology [facility] #2 [place] [address] Emy Pepe APRN, CNS #2 [facility] [place] [address] Tono Wade MD #2 [facility] [place] [address] documented as of this encounter Visit Diagnoses Not on filedocumented in this encounter Care Teams Grocery Associate Relationship Specialty Start Date End Date Laith Krishnamurthy MD PCP - General Family Medicine 07/04/17 Emy Pepe APRN, CNS #[address] [place] [address] Nurse Practitioner Advanced Practice Nurse 08/27/22 Tono Wade MD #[address] [place] [address] Consulting Physician Neurology 05/28/24 documented as of this encounter
--- OUTSIDE RECORDS SUMMARY | 2024-08-18 16:42 | XMS_ITS | Encounter Summary ---
Author Organization [facility] Address [address] [place] [address] Phone Care Team Providers Care Asphalt Surface Heater Operator Name Role Phone Laith Krishnamurthy MD Primary Care Provider Emy Pepe APRN, STOCKROOM ASSOCIATE Unavailable Tono Wade MD Unavailable [phone] Reason for Visit * Reason Comments Medication Refill Encounter Details Date Type Department Care Team (Late st Contact Info) Description 03/05/2023 Refill [facility] [address] [place] [id number] Emy Pepe, STEPHANIA, STOCKROOM ASSOCIATE [address] [place] [address] Medication Refill Social History Tobacco Use Types [...] Telephone Encounter - Carolina Tobar RN - 03/05/2023 8:55 AM CDT Medication failed the protocol, provider to review and approve the medication order if appropriate. Requested Prescriptions Pending Prescriptions Disp Refills Qulipta 60 MG Tablet [Pharmacy Med Name: QULIPTA 60 MG TABLET] 30 Tablet 2 Sig: TAKE 1 TABLET BY MOUTH EVERY DAY Not Delegated - Off Protocol Failed - 03/05/2023 3:03 AM Failed - This refill cannot be delegated Passed - Visit with relevant provider in past 12 months or upcoming 90 days Recent Visits Date Type Provider Dept 10/11/22 Telemedicine Emy Pepe APRN, [facility] Neurology [facility] 08/27/22 Office Visit Emy Pepe APRN, [facility] Showing recent visits within past 365 days and meeting all other requirements Future Appointments No visits were found meeting these conditions. Showing future appointments within next 90 days and meeting all other requirements Ubrelvy 100 MG Tablet [Pharmacy Med Name: UBRELVY 100 MG TABLET] 16 Tablet 2 Sig: TAKE 1 TABLET BY MOUTH ONCE NEEDED FOR OTHER. *PA DENIED* Not Delegated - Off Protocol Failed - 03/05/2023 3:03 AM Failed - This refill cannot be delegated Passed - Visit with relevant provider in past 12 months or upcoming 90 days Recent Visits Date Type Provider Dept 10/11/22 Telemedicine Emy Pepe APRN, [facility] 08/27/22 Office Visit Emy Pepe APRN, [facility] Showing recent visits within past 365 days and meeting all other requirements Future Appointments No visits were found meeting these conditions. Showing future appointments within next 90 days and meeting all other requirements documented in this encounter Plan of Treatment Upcoming Encounters Date Type Department Care Team (Late st Contact Info) Description 08/27/2024 10:45 AM CDT Procedure Visit [facility] - [place] [address] [place] [address] Emy Pepe APRN, STOCKROOM ASSOCIATE [address] [place] [address] Tono Wade MD [address] [place] [address] documented as of this encounter Visit Diagnoses Diagnosis Episodic migraine documented in this encounter Care Teams Asphalt Surface Heater Operator Relationship Specialty Start Date End Date Laith Krishnamurthy MD PCP - General Family Medicine 07/04/17 Emy Pepe APRN, STOCKROOM ASSOCIATE [address] [place] [address] Nurse Practitioner Advanced Practice Nurse 08/27/22 Tono Wade MD [address] [place] [phone] Consulting Physician Neurology 05/28/24 documented as of this encounter
--- OUTSIDE RECORDS SUMMARY | 2024-08-18 16:42 | XMS_ITS | Encounter Summary ---
Author Organization [facility] Address [address] [place] [address] Phone Care Team Providers Care Boiler Fireman Name Role Phone Laith Krishnamurthy MD Primary Care Provider Emy Pepe APRN, INTERLOCKING PAVEMENT INSTALLER Unavailable + [phone] Tono Wade MD Unavailable [phone] Reason for Visit * Reason Comments Medication Refill Encounter Details Date Type Department Care Team (Late st Contact Info) Description 01/12/2020 Refill [facility] Neurology [facility] [address] [facility] [place] [address] Tono Wade MD [address] [place] [address] Medication Refill Social History Tobacco [...] Description 08/27/2024 10:45 AM CDT Procedure Visit [facility] Neurology - [place] [address] [place] [address] Emy Pepe APRN, INTERLOCKING PAVEMENT INSTALLER [address] [place] [address] Tono Wade MD [address] [place] [address] documented as of this encounter Visit Diagnoses Not on filedocumented in this encounter Care Teams Boiler Fireman Relationship Specialty Start Date End Date Laith Krishnamurthy MD PCP - General Family Medicine 07/04/17 Emy Pepe APRN, INTERLOCKING PAVEMENT INSTALLER [address] [place] [address] Nurse Practitioner Advanced Practice Nurse 08/27/22 Tono Wade MD [address] [place] [address] Consulting Physician Neurology 05/28/24 documented as of this encounter
--- OUTSIDE RECORDS SUMMARY | 2024-08-18 16:42 | XMS_ITS | Encounter Summary ---
Author Organization [facility] Address [address] [place] [address] Phone Care Team Providers Care Unit Trust Manager Name Role Phone Laith Krishnamurthy MD Primary Care Provider Emy Pepe APRN, BELLMAN CAPTAIN Unavailable + [phone] Tono Wade MD Unavailable [phone] Reason for Visit * Reason Comments Medication Refill Encounter Details Date Type Department Care Team (Late st Contact Info) Description 04/25/2020 Refill [facility] Neurology [facility] [address] [facility] [place] [address] Tono Wade MD [address] [place] [address] Medication Refill Social History Tobacco [...] Description 08/27/2024 10:45 AM CDT Procedure Visit [facility] Neurology - [place] [address] [place] [address] Emy Pepe APRN, BELLMAN CAPTAIN [address] [place] [address] Tono Wade MD [address] [place] [address] documented as of this encounter Visit Diagnoses Diagnosis Migraine without aura and without status migrainosus, not intractable Migraine without aura, without mention of intractable migraine without mention of status migrainosus documented in this encounter Care Teams Unit Trust Manager Relationship Specialty Start Date End Date Laith Krishnamurthy MD PCP - General Family Medicine 07/04/17 Emy Pepe APRN, BELLMAN CAPTAIN [address] [place] [address] Nurse Practitioner Advanced Practice Nurse 08/27/22 Tono Wade MD [address] [place] [address] Consulting Physician Neurology 05/28/24 documented as of this encounter
--- OUTSIDE RECORDS SUMMARY | 2024-08-18 16:42 | XMS_ITS | Referral Summary ---
Author Organization [facility] Address [address] [place] [address] Care Team Providers Care Truck Mechanic Name Role Phone Laith Krishnamurthy MD Primary Care Provider Travis Fuentes ATMOSPHERIC TECHNICIAN Unavailable [phone] Allergies Active Allergy Reactions Criticality Noted Date [...] Chronic tension-type headache, not intractable 0 07/18/2020 Social History Tobacco Use Types Packs/Day Years Used Date Smoking Tobacco: Never Smokeless Tobacco: Never Alcohol Use Standard Drinks/Week Comments Yes 0 (1 standard drink = 0.6 oz pur e alcohol) [facility] Utilities Answer Date Recorded In the past 12 months has [employer], [employer], or water NPS threatened to shut off services in your [...] week 12/01/2023 How often do you attend [facility] or buddhist services? Never 12/01/2023 Do you belong to any clubs o r organizations such as roman catholic groups, unions, fraternal or athletic groups, or [...] any time in the past 12 m [facility], were you homeless or living in a care home (including now)? No 12/01/2023 Personal Safety Answer Date Recorded Have you ever been in or are you currently in a harmful physical or emotional relationship or is someone making you feel afraid or unsafe? 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, cocktail server Not on file Not on file Not on file Last Filed Vital Signs Vital Sign Reading [...] 12/11/2023 11:45 PM CDT Plan of Treatment Not on file Medical Devices Implanted Type Area Agricultural Adviser Device Identifier Shelf Expiration Date Model / Serial / Lot [employer] Enrique Contour 6fr 24cm Large Inner Lumen Low Profile Bladder Yaya Taper Latex Free 180-222 - [id number] Implanted:Qty: 1 on 11/30/2023 by Harley Marcano MD at [employer] Left: Ureter [employer] Enrique 04/11/2026 [id number] / / [id number] Insurance [facility] CHOICE OOS BLUE [facility] [place] [employer] [facility] CHOICE Advance Directives For more information, please contact: [phone] * Full Code (Latest Code Status on File) Date Activated Date Inactivated Comments 12/11/2023 10:38 AM 12/12/2023 3:47 PM * Full Code Date Activated Date Inactivated Comments 11/30/2023 11:03 AM 12/03/2023 6:13 PM Care Teams Truck Mechanic Relationship Specialty Start Date End Date Laith Krishnamurthy MD PCP - General 03/28/19 Travis Fuentes NP Nurse Practitioner Urology 12/03/23
--- OUTSIDE RECORDS SUMMARY | 2024-08-18 16:42 | XMS_ITS | Encounter Summary ---
Author Organization [facility] Address [address] [place] [address] Phone Care Team Providers Care Coin Box Collector Name Role Phone Laith Krishnamurthy MD Primary Care Provider Emy Pepe APRN, CLAY MINE CUTTING MACHINE OPERATOR Unavailable + [phone] Tono Wade MD Unavailable [phone] Reason for Visit * Reason Comments Medication Refill Encounter Details Date Type Department Care Team (Late st Contact Info) Description 10/02/2021 Refill [facility] [address] [facility] [address] [id number] Tono Wade MD [address] [place] [address] Medication Refill Social History Tobacco [...] Description 08/27/2024 10:45 AM CDT [facility] [address] [place] [address] Emy Pepe APRN, CLAY MINE CUTTING MACHINE OPERATOR [address] [place] [address] Tono Wade MD [address] [place] [address] documented as of this encounter Visit Diagnoses Diagnosis Migraine without aura and without status migrainosus, not intractable Migraine without aura, without mention of intractable migraine without mention of status migrainosus documented in this encounter Care Teams Coin Box Collector Relationship Specialty Start Date End Date Laith Krishnamurthy MD PCP - General Family Medicine 07/04/17 Emy Pepe APRN, CLAY MINE CUTTING MACHINE OPERATOR [address] [place] [address] Nurse Practitioner Advanced Practice Nurse 08/27/22 Tono Wade MD [address] [place] [address] Consulting Physician Neurology 05/28/24 documented as of this encounter
--- OUTSIDE RECORDS SUMMARY | 2024-08-18 16:42 | XMS_ITS | Data Portability ---
Author Organization [facility] Address [address] [place] [address] Care Team Providers Care Matrix Bath Attendant Name Role Phone CHRISTINA AMEZCUA Primary Care Provider Assessment Encounter Date Assessment Date Assessment LastModified by Organization Details LastModified Time 06/09/2023 06/09/2023 Annual gynecological exam performed. Patient will come back in a year unless there are new symptoms. Not available 06/09/2023 11:25:52 06/21/2024 06/21/2024 Annual gynecological exam performed. Patient will come back in a year unless there are new symptoms. [email or web address] Not available 06/11/2024 11:52:06 Plan of Treatment Reminders Order Date Submit Date Provider Last Modified By Organization Details Last Modified Time Details Appointments None recorded. Lab CBC w/ auto diff 2024 025 [facility] (Lab), [address], [place], [address], 23:54:52 CMP, serum or plasma 2024 025 [facility] (Lab), [address], [place], [address], 5 23:54:53 lipid panel, blood 2024 025 [facility] (Lab), [address], [place], [address], 5 23:54:53 TSH, serum or plasma 2024 025 [facility] (Lab), [address], [place], [address], 5 23:54:52 HbA1c (hemoglobin A1c), blood 2024 025 [facility] (Lab), [address], [place], [address], 5 23:54:55 pap, IG + HR HPV - HPV regardless but if HPV is positive need subtyping 16,18/45Add CT/GC/Trich 2024 025 [facility] (Lab), [address], [place], [address], 5 23:54:54 HBsAg (hepatitis B surface Ag), serum 2024 025 [facility] (Lab), [address], [place], [address], 5 23:54:51 Referral None recorded. Procedures None recorded. Surgeries None recorded. Imaging MAMMO, diagnostic, digital, bilateral 2024 025 [facility], [address], [place] [address], [place], [address], 5 13:19:57 US, pelvis 2023 024 [email or web address] [place], [address], [address], [place], [address], 4 13:09:39 US, transvagina l 2023 024 [email or web address] [place], [address], [address], [place], [address], 4 13:09:39 Medication Orders estradiol 2 mg tablet 2024 025 [email or web address] [id number], [address] [place], [address], 5 15:56:49 estradiol 1 mg tablet 2023 024 [email or web address] [facility][id number], [address] [place], [address], 4 09:11:03 Patient TargetsNo targets recorded. Patient InstructionsNo instructions recorded. Reason for Referral None Reported. Results Created Date Observation Date Name Description Value Unit Range Abnormal Flag Note LastModifiedBy Organization Detail LastModifiedTime 06/09/1906/09/2023 HIV 1/2 ANTIG EN/AN TIBOD Y, REFLE X CONFI RMATI ON HIV antigen/anti body Nonrea ctive nonrea ctive HIV-1 antig en and HIV-1 /HIV- 2 antib odies were not detec ze. No labor atory evide nce of HIV infec tion. Not Available [facility] (Lab) [address], [place], [address], 06/13/2023 13:38:13 06/09/1906/09/2023 HEPAT ITIS B SURFA CE ANTIG EN hepatitis B surface antigen Non-re active non-re active This assay was perfo rmed using [employer] ratio n reage nts and test kits. Value s obtai eddie with other assay metho ds or kits canno t be used inter hoyt eably . Not Available [facility] (Lab) [address], [place], [address], 06/13/2023 13:38:14 06/09/1906/09/2023 HEPAT ITIS C ANTIB MATT SCREE N, REFLE X TO CONFI RMATI ON hepatitis C antibody Non-re active non-re active Antib odies to HCV Not Detec ze, does not exclu de the possi bilit y of expos ure to HCV. Not Available [facility] (Lab) [address], [place], [address], 06/13/2023 13:38:14 06/09/19 24 06/09/2023 HERPE S SIMPL EX VIRUS TYPE 2 SPECI FIC AB, IGG herpes simplex virus 2 IgG Negati ve negati ve Not Available [facility] (Lab) [address] [place], [address], 06/13/2023 13:38:14 06/09/19 24 06/09/2023 HERPE S SIMPL EX VIRUS TYPE 2 SPECI FIC AB, IGG herpes simples virus 2 IgG, quant <0.2 ai 0.0-0. 8 Not Available [facility] (Lab) [address] [place], [address], 06/13/2023 13:38:14 06/09/19 24 06/09/2023 RPR SCREE N, REFLE X TITER /CONF IRMAT ION RPR screen Nonrea ctive nonrea ctive Not Available [facility] (Lab) [address], [place], [address], 06/13/2023 13:38:15 06/09/19 24 06/09/2023 IMAGE GUIDE D PAP AND HPV REGAR DLESS image guided Pap, HPV regardless of Pap result SEE RESULT S BELOW abnormal CASE REPOR T: Cytol ogy Gynec ologi chandler Repor t Case: [id number] Autho rikami g Provi catia: Vitaliy Ray MD Colle cted: 06/09 1355 Order ing Locat ion: [place] Patho logy Recei shakir: 06/10 1005 First Scree n: Nacha mpass ak, Sivil ay, CT Rescr een: DeLuc a, Lynn, CT Speci men: Scree jailene Pap - Image d, Vagin a STATE MENT OF ADEQU ACY: Satis facto ry for evalu ation FINAL DIAGN OSIS: Negat shodna for Intra epith elial Lesio n or Malig lanre (NIL) . Shift in dedrick sugge stive of bacte rial vagin osis. Elect nirmala lipscomb jimbo d by Lynn Johnson, YEYO on 024 at 6:57 PM ----- ----- ----- ----- ----- ----- ----- ----- ----- ----- ----- ----- ----- ----- ----- ----- ----- ---- HPV RESUL TS: HPV mRNA E6/E7 : Posit shonda - HPV mRNA Detec ze HPV GENOT YPE 16 (MARYSOL) : Not Detec ze HPV GENOT YPE 18/45 (MARYSOL) : Not Detec ze NOTE: This high risk HPV mRNA assay detec ts fourt een high- risk HPV types (16, 18, 31, 33, 35, 39, 45, 51, 52, 56, 58, 59, 66, 68) witho ut diffe renti ation . This assay can diffe renti ate HPV 16 from HPV 18/45 , but does not diffe renti ate betwe en HPV 18 and HPV 45. A negat shonda HPV 16, 18/45 genot ype assay resul t does not exclu de the possi bilit y of cytol ogic abnor malit ies or of futur e or under lying NERI 1, NERI 3 or cance r. COMME NT: This speci men was revie wed by a Cytot echno logis t and/o r Patho logis t (as indic ated in this repor t) after evalu ation using the Thinp rep Imagi ng Syste m. CLINI CHANDLER INFOR MATIO N: Menst rual Statu s: Total Hyste recto my LMP (if appli cable ): Clini chandler Histo ry/Pr eviou s Pap: Type of Neopl kathleen (if appli cable ): Fransiscoi gilda t Clini chandler Findi ngs: Other Histo ry: Hormo carol (if appli cable ): PAP EDUCA ANGÉLICA L NOTE: The Pap Test is a scree jailene test with an inher ent false negat shonda rate. Liqui d-bas ed sampl ing may decre ase, but will not elimi jethro, false negat shonda resul ts. A negat shonda resul t does not precl ude the prese nce and/o r devel opmen t of disea se, since the prese nce of abnor mal cells in the sampl e depen ds on the locat ion of the lesio n and sampl ing techn ique. Donaldo nued regul ar scree jailene is the best metho d of cance r preve ntion . If repor ze cytol ogic findi ng do not corre late with physi chandler and/o r histo rical findi ngs, furth er inves tigat ion is recom jakob d, as clini thais nichols nted. Not Available [facility] (Lab) [address], [place], [address], 06/13/2023 13:38:15 06/09/19 24 06/09/2023 CT/GC (MARYSOL) , THINP REP VIAL chlamydia trachomatis, PCR Negati ve negati ve Not Available [facility] (Lab) [address], [place], [address], 06/13/2023 13:38:16 06/09/19 24 06/09/2023 CT/GC (MARYSOL) , THINP REP VIAL neisseria gonorrhoeae, PCR Negati ve negati ve Not Available [facility] (Lab) [address], [place], [address], 06/13/2023 13:38:16 06/09/19 24 06/09/2023 TRICH OMONA S VAGIN LUZ (RRNA ) trichomonas vaginalis ribosomal RNA (rrna) Negati ve negati ve Not Available [facility] (Lab) [address] [place], [address], 06/13/2023 13:38:17 06/09/19 24 06/09/2023 HEPAT ITIS B CORE, IGM hepatitis B core IgM antibody Negati ve negati ve Not Available [facility] (Lab) [address] [place], [address], 06/13/2023 13:38:17 07/17/19 24 07/17/2023 SURGI CHANDLER PATHO LOGY surgical pathology SEE RESULT S BELOW CASE REPOR T: Surgi chandler Patho logy Repor t Case: [id number] Autho radha sesay Provi catia: Vitaliy Ray MD Colle cted: 07/16 1650 Order ing Locat ion: [place] Patho logy Recei shakir: 07/17 0147 Patho logis t: Regina Briscoe MD Speci mens: A) - Vagin al Cuff, vagin al cuff bx / vagin al cuff bx B) - Vagin al Cuff, vagin al cuff bx/va ginal cuff bx FINAL DIAGN OSIS: A. Vagin al cuff, biops y: -Squa mous mucos a with no patho logic hoyt e. -No dyspl kathleen ident ified . B. Vagin al cuff, biops y: -Squa mous mucos a with no patho logic hoyt e. -No dyspl kathleen ident ified . Elect nirmala choi d by Regina Briscoe MD on 2023 at 11:50 AM ----- ----- ----- ----- ----- ----- ----- ----- ----- ----- ----- ----- ----- ----- ----- ----- ----- ---- LIEN NT: The prece ding Pap smear is appre rico mcneal ([id number]). CLINI CHANDLER INFOR MATIO N: [id number] 11 MICRO SCOPI C DESCR IPTIO N: A micro scopi c exami natio n was perfo rmed. GROSS DESCR IPTIO N: A. Vagin al Cuff. The speci men is label ed with the patie nt's name, demog karen cs and vagin al cuff BX . Recei shakir in forma claudia is a 0.5 cm piece of white -fabian tissu e. The entir e speci men is submi tted in one casse tte. Gross ed by Josh Munroe Vagin al Cuff. The speci men is label ed with the patie nt's name, lauro naik and vagin al cuff BX 2 . Recei shakir in forma claudia is a 0.5 cm piece of white -fabian tissu e. The entir e speci men is submi tted in one casse tte. Gross ed by Josh bowens Not Available [facility] (Lab) [address], [place], [address], 07/18/2023 12:52:47 06/21/1906/21/2024 HBSAG /HCV/ HIV/R MT HIV antigen/anti body Nonrea ctive nonrea ctive HIV-1 antig en and HIV-1 /HIV- 2 antib odies were not detec ze. No labor atory evide nce of HIV infec tion. Not Available [facility] (Lab) [address], [place], [address], 06/27/2024 23:54:51 06/21/1906/21/2024 HBSAG /HCV/ HIV/R MT hepatitis B surface antigen Non-re active non-re active This assay was perfo rmed using [employer] ratio n reage nts and test kits. Value s obtai eddie with other assay metho ds or kits canno t be used inter hoyt eably . Not Available [facility] (Lab) [address], [place], [address], 06/27/2024 23:54:51 06/21/1906/21/2024 HBSAG /HCV/ HIV/R MT hepatitis C antibody Non-re active non-re active Antib odies to HCV Not Detec ze, does not exclu de the possi bilit y of expos ure to HCV. Not Available [facility] (Lab) [address], [place], [address], 06/27/2024 23:54:51 06/21/19 25 06/21/2024 HBSAG /HCV/ HIV/R MT RPR screen Nonrea ctive nonrea ctive Not Available [facility] (Lab) [address], [place], [address], 06/27/2024 23:54:51 06/21/19 25 06/21/2024 CBC W/DIF F WBC 6.6 10'3/ uL 3.5-10 .5 Not Available [facility] (Lab) [address], [place], [address], 06/27/2024 23:54:52 06/21/19 25 06/21/2024 CBC W/DIF F RBC 4.18 10'6/ uL (based on docume nted legal sex) 3.80-5 .20 Not Available [facility] (Lab) [address], [place], [address], 06/27/2024 23:54:52 06/21/19 25 06/21/2024 CBC W/DIF F HGB 11.6 g/dL (based on docume nted legal sex) 11.6-1 5.4 Not Available [facility] (Lab) [address], [place], [address], 06/27/2024 23:54:52 06/21/19 25 06/21/2024 CBC W/DIF F HCT 36.3 % (based on docume nted legal sex) 34.0-4 5.0 Not Available [facility] (Lab) [address], [place], [address], 06/27/2024 23:54:52 06/21/19 25 06/21/2024 CBC W/DIF F MCV 86.8 fL 80.0-9 9.0 Not Available [facility] (Lab) [address], [place], [address], 06/27/2024 23:54:52 06/21/19 25 06/21/2024 CBC W/DIF F MCH 27.8 pg 27.0-3 4.0 Not Available [facility] (Lab) [address], [place], [address], 06/27/2024 23:54:52 06/21/19 25 06/21/2024 CBC W/DIF F MCHC 32.0 g/dL 32.0-3 5.5 Not Available [facility] (Lab) [address], [place], [address], 06/27/2024 23:54:52 06/21/19 25 06/21/2024 CBC W/DIF F RDW 12.8 % 11.0-1 5.0 Not Available [facility] (Lab) [address], [place], [address], 06/27/2024 23:54:52 06/21/19 25 06/21/2024 CBC W/DIF F plt 310 10'3/ uL 150-40 0 Not Available [facility] (Lab) [address], [place], [address], 06/27/2024 23:54:52 06/21/19 25 06/21/2024 CBC W/DIF F MPV 10.9 fL 8.8-12 .1 Not Available [facility] (Lab) [address], [place], [address], 06/27/2024 23:54:52 06/21/19 25 06/21/2024 CBC W/DIF F neutrophils 57.7 % 34.0-7 3.0 Not Available [facility] (Lab) [address], [place], [address], 06/27/2024 23:54:52 06/21/19 25 06/21/2024 CBC W/DIF F lymphocytes 29.7 % 15.0-5 0.0 Not Available [facility] (Lab) [address], [place], [address], 06/27/2024 23:54:52 06/21/19 25 06/21/2024 CBC W/DIF F monocytes 7.1 % 1.0-15 .0 Not Available [facility] (Lab) [address], [place], [address], 06/27/2024 23:54:52 06/21/19 25 06/21/2024 CBC W/DIF F eosinophils 4.6 % 0.0-8. 0 Not Available [facility] (Lab) [address], [place], [address], 06/27/2024 23:54:52 06/21/19 25 06/21/2024 CBC W/DIF F basophils 0.6 % 0.0-2. 0 Not Available [facility] (Lab) [address], [place], [address], 06/27/2024 23:54:52 06/21/19 25 06/21/2024 CBC W/DIF F immature granulocytes 0.3 % no define d refere nce range Immat ure Granu locyt es (IG) repre sents autom ated enume ratio n of Metam yeloc ytes, Myelo cytes and Promy elocy tee when IG is < 5%. Blast s are not inclu ded in IG and repor ze separ ately if prese nt. Not Available [facility] (Lab) [address], [place], [address], 06/27/2024 23:54:52 06/21/19 25 06/21/2024 CBC W/DIF F absolute neutrophils 3.8 10'3/ uL 1.5-8. 0 Not Available [facility] (Lab) [address], [place], [address], 06/27/2024 23:54:52 06/21/19 25 06/21/2024 CBC W/DIF F absolute lymphocytes 2.0 10'3/ uL 1.0-4. 0 Not Available [facility] (Lab) [address], [place], [address], 06/27/2024 23:54:52 06/21/19 25 06/21/2024 CBC W/DIF F absolute monocytes 0.5 10'3/ uL 0.2-1. 0 Not Available [facility] (Lab) [address], [place], [address], 06/27/2024 23:54:52 06/21/19 25 06/21/2024 CBC W/DIF F absolute eosinophils 0.3 10'3/ uL 0.0-0. 6 Not Available [facility] (Lab) [address], [place], [address], 06/27/2024 23:54:52 06/21/19 25 06/21/2024 CBC W/DIF F absolute basophils 0.0 10'3/ uL 0.0-0. 3 Not Available [facility] (Lab) [address], [place], [address], 06/27/2024 23:54:52 06/21/1906/21/2024 CBC W/DIF F absolute immature granulocytes 0.0 10'3/ uL 0.00-0 .10 : Routi ne : ENDOC ERVIC AL/CE RVICA L Colle cted by offic e staff . Refer ence range s for nonbi nary/ inter sex or unspe cifie d gende r patie nts have not been estab lishe d. Pavel frausto refer to the [facility] table for range s estab lishe d for cisge nder patie nts and evalu ate in the clini chandler manuel xt of the indiv idual patie nt: https ://blue marquis book. nm.or g/gen derx Not Available [facility] (Lab) [address], [place], [address], 06/27/2024 23:54:52 06/21/1906/21/2024 T4 FREE T4, free 0.69 NG/dL 0.60-1 .40 This assay is susce ptibl e to inter feren ce from high level s of bioti n which may false ly eleva te resul ts. Pleas e corre late with clini chandler findi ngs. : Routi ne : ENDOC ERVIC AL/CE RVICA L Colle cted by offic e staff . Not Available [facility] (Lab) [address], [place], [address], 06/27/2024 23:54:52 06/21/19 25 06/21/2024 TSH, REFLE X FREE T4 TSH 8.76 uIU/m L 0.30-5 .33 high : Routi ne : ENDOC ERVIC AL/CE RVICA L Colle cted by offic e staff . Not Available [facility] (Lab) [address], [place], [address], 06/27/2024 23:54:52 06/21/19 25 06/21/2024 LIPID PANEL ,AMA (LDL- CALC) total cholesterol 200 mg/dL 0-199 high Not Available [facility] (Lab) [address] [place], [address], 06/27/2024 23:54:53 06/21/19 25 06/21/2024 LIPID PANEL ,AMA (LDL- CALC) triglyceride s 160 mg/dL 0-150 high NCEP Refer ence Value s for Trigl yceri kimberly: Janey l: <150 mg/dL Borde rline High: 150 - 199 mg/dL High: 200 - 499 mg/dL Very High: >/= 500 mg/dL Not Available [facility] (Lab) [address] [place], [address], 06/27/2024 23:54:53 06/21/19 25 06/21/2024 LIPID PANEL ,AMA (LDL- CALC) HDL cholesterol 56 mg/dL >40 Not Available [facility] (Lab) [address] [place], [address], 06/27/2024 23:54:53 06/21/19 25 06/21/2024 LIPID PANEL ,AMA (LDL- CALC) LDL cholesterol 116 mg/dL 0-99 high Cutof f value s recom jakob d by the Natio nal Elaine stero l Educa tion Progr am: SHON ABLE: Elaine stero l <200 mg/dL LDL <100 mg/dL BORDE RLINE : Elaine stero l 200-2 39 mg/dL LDL 101-1 59 mg/dL HIGHE R RISK: Elaine stero l >240 mg/dL LDL >160 mg/dL , HDL <40 mg/dL Not Available [facility] (Lab) [address], [place], [address], 06/27/2024 23:54:53 06/21/1906/21/2024 LIPID PANEL ,AMA (LDL- CALC) non-HDL cholesterol 144 mg/dL no refere nce range A reaso nable goal for non-H DL elaine stero l is one that is 30 mg/dL highe r than the LDL elaine stero l goal. Not Available [facility] (Lab) [address], [place], [address], 06/27/2024 23:54:53 06/21/1906/21/2024 LIPID PANEL ,AMA (LDL- CALC) chol/HDL ratio 3.6 . 0.0-5. 0 : Routi ne : ENDOC ERVIC AL/CE RVICA L Colle cted by offic e staff . On August 27, 2022, [facility] labor johnnyi claudia hoyt ed the equat ion for calcu latin g estim ated low-d ensit y lipop rotei n-cho leste rol (LDL- C) from the Fried behzad equat ion to the Augusta jacob/Richard flynn equat ion. This new equat ion is only valid for lipid panel s with trigl yceri kimberly < 400 mg/dL . Apoloniai es adarsh mortonon strat ed that this new equat ion will impro ve the accur acy of LDL-C , espec ially in scena [place] when LDL-C froy ntrat ions are relat ively low (< 100 mg/dL ), trigl yceri kimberly are eleva ze, or patie nt is non-f astin g. Refer ences : - Harley Pina, Michael Burrows , Ramesh natarajan, Isidoro Lui, Isidoro menezes, Deion Mayes nthal , and Augustin Duke . 2013. Comp ariso n of a Novel Metho d vs the Fried behzad Equat ion for Estim ating Low-D ensit y Lipop rotei n Elaine stero l Level s from the Stand judy Lipid Profmyah le. ESMER: The Journ al of the Ameri can Medic al Assoc iatio n 310 (19): 2060- . - Edy meier V, Tawana J, Jimmy meier A, Huong M, Anand frausto R, Chalino meier E, Sugey draper RS, Srikanth SR, Augusta jacob SS. Fast ing Versu s Nonfa sting and Low-D ensit y Lipop rotei n Elaine stero l Accur acy. Circu latio n. 2017May 06;137 (1):1 0-19. Not Available [facility] (Lab) [address], [place], [address], 06/27/2024 23:54:53 06/21/19 25 06/21/2024 CMP(C OMPRE HENSI VE METAB OLIC PANEL ) sodium 139 mmol/ L 133-14 6 Not Available [facility] (Lab) [address], [place], [address], 06/27/2024 23:54:53 06/21/19 25 06/21/2024 CMP(C OMPRE HENSI VE METAB OLIC PANEL ) potassium 4.2 mmol/ L 3.5-5. 1 Not Available [facility] (Lab) [address], [place], [address], 06/27/2024 23:54:53 06/21/19 25 06/21/2024 CMP(C OMPRE HENSI VE METAB OLIC PANEL ) chloride 104 mmol/ L 98-107 Not Available [facility] (Lab) [address] [place], [address], 06/27/2024 23:54:53 06/21/19 25 06/21/2024 CMP(C OMPRE HENSI VE METAB OLIC PANEL ) carbon dioxide 28 mmol/ L 21-31 Not Available [facility] (Lab) [address], [place], [address], 06/27/2024 23:54:53 06/21/19 25 06/21/2024 CMP(C OMPRE HENSI VE METAB OLIC PANEL ) anion gap 7 mmol/ L 4-13 Not Available [facility] (Lab) [address], [place], [address], 06/27/2024 23:54:53 06/21/19 25 06/21/2024 CMP(C OMPRE HENSI VE METAB OLIC PANEL ) blood urea nitrogen 9 mg/dL 7-25 Not Available [facility] (Lab) [address], [place], [address], 06/27/2024 23:54:53 06/21/19 25 06/21/2024 CMP(C OMPRE HENSI VE METAB OLIC PANEL ) creatinine 0.60 mg/dL 0.60-1 .30 Not Available [facility] (Lab) [address], [place], [address], 06/27/2024 23:54:53 06/21/19 25 06/21/2024 CMP(C OMPRE HENSI VE METAB OLIC PANEL ) egfrcr (CKD-epi 2020) >90 mL/mi n/1.7 3_m2 >=60 Not Available [facility] (Lab) [address], [place], [address], 06/27/2024 23:54:53 06/21/19 25 06/21/2024 CMP(C OMPRE HENSI VE METAB OLIC PANEL ) calcium 10.6 mg/dL 8.3-10 .5 high Not Available [facility] (Lab) [address], [place], [address], 06/27/2024 23:54:53 06/21/19 25 06/21/2024 CMP(C OMPRE HENSI VE METAB OLIC PANEL ) glucose 82 mg/dL 70-100 Not Available [facility] (Lab) [address], [place], [address], 06/27/2024 23:54:53 06/21/19 25 06/21/2024 CMP(C OMPRE HENSI VE METAB OLIC PANEL ) protein, total 7.2 g/dL 6.4-8. 3 Not Available [facility] (Lab) [address], [place], [address], 06/27/2024 23:54:53 06/21/19 25 06/21/2024 CMP(C OMPRE HENSI VE METAB OLIC PANEL ) albumin 4.3 g/dL 3.5-5. 0 Not Available [facility] (Lab) [address], [place], [address], 06/27/2024 23:54:53 06/21/19 25 06/21/2024 CMP(C OMPRE HENSI VE METAB OLIC PANEL ) ALT 11 units /L 9-43 Not Available [facility] (Lab) [address], [place], [address], 06/27/2024 23:54:53 06/21/19 25 06/21/2024 CMP(C OMPRE HENSI VE METAB OLIC PANEL ) alkaline phosphatase 69 units /L 34-104 Not Available [facility] (Lab) [address], [place], [address], 06/27/2024 23:54:53 06/21/19 25 06/21/2024 CMP(C OMPRE HENSI VE METAB OLIC PANEL ) AST 13 units /L 13-39 Not Available [facility] (Lab) [address], [place], [address], 06/27/2024 23:54:53 06/21/19 25 06/21/2024 CMP(C OMPRE HENSI VE METAB OLIC PANEL ) bilirubin, total 0.3 mg/dL 0.2-1. 2 : Routi ne : ENDOC ERVIC AL/CE RVICA L Colle cted by offic e staff . Not Available [facility] (Lab) [address], [place], [address], 06/27/2024 23:54:53 06/21/19 25 06/21/2024 IMAGE GUIDE D PAP AND HPV REGAR DLESS image guided Pap, HPV regardless of Pap result SEE RESULT S BELOW CASE REPOR T: Cytol ogy Gynec ologi chandler Repor t Case: [id number] Autho radha lázaro Provi catia: Dermo dy, Sydni , ANP, ELECTRICAL [employer]SEM[employer]Y TECHNICIAN Colle cted: 06/21 1518 Order ing Locat ion: [place] [facility] Recei shakir: 06/22 0834 First Scree n: Maryam erwin, Ramesh nogueira, CT Rescr een: Marquita Duke, CT Speci men: [place] dent Pap - Image d, Cervi x STATE MENT OF ADEQU ACY: Satis facto ry for evalu ation Trans forma tion zone compo nent absen t The absen ce of an endoc ervic al compo nent was confi rmed by an addit ional scree ner. ----- ----- ----- ----- ----- ----- ----- ----- ----- ----- ----- ----- ----- ----- ----- ----- ----- ---- FINAL DIAGN OSIS: Negat shonda for Intra epith elial Andre jacob or Kanu de dios (NIL) . Elect nirmala choi d by Marquita Duke , CT on 2024 at 0920 [address] ----- ----- ----- ----- ----- ----- ----- ----- ----- ----- ----- ----- ----- ----- ----- ----- ----- ---- HPV RESUL TS: HPV mRNA E6/E7 : No HPV mRNA Detec ze NOTE: This high risk HPV mRNA assay detec ts fourt een high- risk HPV types (16, 18, 31, 33, 35, 39, 45, 51, 52, 56, 58, 59, 66, 68) witho ut diffe renti ation . COMME NT: This speci men was revie wed by a Cytot echno logis t and/o r Patho logis t (as indic ated in this repor t) after evalu ation using the Thinp rep Imagi ng Syste m. CLINI CHANDLER INFOR MATIO N: Menst rual Statu s: LMP (if appli cable ): Clini chandler Histo ry/Pr eviou s Pap: Type of Neopl kathleen (if appli cable ): Signi fican t Clini chandler Findi ngs: Other Histo ry: Hormo carol (if appli cable ): PAP EDUCA ANGÉLICA L NOTE: The Pap Test is a scree jailene test with an inher ent false negat shonda rate. Liqui d-bas ed sampl ing may decre ase, but will not elimi jethro, false negat shonda resul ts. A negat shonda resul t does not precl ude the prese nce and/o r devel opmen t of disea se, since the prese nce of abnor mal cells in the sampl e depen ds on the locat ion of the lesio n and sampl ing techn ique. Donaldo nued regul ar scree jailene is the best metho d of cance r preve ntion . If repor ze cytol ogic findi ng do not corre late with physi chandler and/o r histo rical findi ngs, furth er inves tigat ion is recom jakob d, as clini thais nichols nted. Not Available [facility] (Lab) [address], [place], [address], 06/27/2024 23:54:54 06/21/19 25 06/21/2024 TRICH OMONA S VAGIN LUZ (RRNA ) trichomonas vaginalis ribosomal RNA (rrna) Negati ve negati ve Not Available [facility] (Lab) [address], [place], [address], 06/27/2024 23:54:54 06/21/19 25 06/21/2024 HEMOG LOBIN A1C hemoglobin A1C 5.4 % 4.0-5. 6 : Criselda ne : ENDOC ERVIC AL/CE RVICA L Colle cted by offic e staff . The Ameri can Diabe tee Assoc iatio n recom mends that a prima ry goal of thera py shoul d be a HBA1C of < 7% and that physi cians shoul d reeva luate the treat ment regim en in patie nts with HBA1C value s consi stent ly > 8%. <5.7% Janey l 5.7 - 6.4% Incre ased risk for diabe tee >=6.5 % Diagn ostic of diabe tee <7.0% Goal of thera py >8.0% Actio n sugge sted Not Available [facility] (Lab) [address] , [place], [address], 06/27/2024 23:54:55 06/21/19 25 06/21/2024 CT/GC (MARYSOL) , THINP REP VIAL chlamydia trachomatis, PCR Negati ve negati ve Not Available [facility] (Lab) [address] [place], [address], 06/27/2024 23:54:55 06/21/19 25 06/21/2024 CT/GC (MARYSOL) , THINP REP VIAL neisseria gonorrhoeae, PCR Negati ve negati ve Not Available [facility] (Lab) [address] [place], [address], 06/27/2024 23:54:55 05/30/19 24 05/30/2023 US, pelvi s No observ ation record ed. [email or web address] Mel[address], [place], [address], 05/31/2023 22:12:58 05/30/19 24 05/30/2023 US, pelvi s No observ ation [facility] [address], [place], [address], 05/30/2023 15:29:57 05/30/19 24 05/30/2023 US, trans vagin al No observ ation record ed. raul [facility] [address], [place], [address], 05/30/2023 15:30:11 07/14/19 25 07/13/2024 MAMMO , diagn ostic , digit al, bilat eral No observ ation record ed. GREG [facility] [address], [place], [address], 07/13/2024 14:28:53 Result Notes None recorded. Procedures Surgical History Date Name Laterality Status Provider Name and Address Organization Details Recorded Time 024 Colposcopy completed Girish Ray MD [address], [place], [address], [facility] 07/17/2023 14:55:55 024 Colposcopy completed Miriam Andrea [facility] 07/17/2023 14:29:34 024 Colposcopy completed Miriam Andrea [facility] 07/17/2023 14:30:00 024 Date of Last Mammogram completed Miriam Andrea [facility] 07/17/2023 14:12:51 024 Date of Last Pap Smear completed Yamilet Genao [facility] 06/18/2023 15:17:02 023 Colonoscopy completed Miriam Andrea [facility] 07/23/2023 08:56:38 021 Caesarean Section completed Miriam Andrea [facility] 07/23/2023 08:56:54 019 [facility] 07/23/2023 08:55:19 014 Total Hysterectomy completed Yamilet Birgit [facility] 06/09/2023 11:35:39 013 Cholecystectomy completed Miriam [facility] 07/23/2023 08:56:46 010 procedure on neck [facility] 07/23/2023 08:55:46 003 section completed [facility] 07/23/2023 08:57:33 003 Tubal Ligation completed [facility] 07/23/2023 08:56:30 Imaging Results Imaging Date Name Status LastModified by Organization Details LastModified Time 05/30/2023 US, pelvis completed [email or web address] [address], [place], [address], 05/31/2023 22:12:58 05/30/2023 US, pelvis completed raul [facility] [address], [place], [address], 05/30/2023 15:29:57 05/30/2023 US, transvaginal completed raul frausto [address], [place], [address], 05/30/2023 15:30:11 07/13/2024 MAMMO, diagnostic, digital, bilateral completed GREG [facility] [address] [address], [place], [address], 07/13/2024 14:28:53 Procedure Notes None recorded. Medical Equipment None Reported. Allergies Allergen ID Allergen Name Allergen Category Reaction Reaction Severity Criticality Documentation Date Start Date Code Code System Note Provider Name and Address Organization Details Recorded Time 04504 aspirin medicatio n anaphylax is hives Not available Not available Not available 04/21/2020 1191 RxNorm Comme nt: [facility]; Not Available [facility] 0 14:24:30 75843 ibuprofen medicatio n abdominal pain severe Not available 07/17/2023 5640 RxNorm Miriam Andrea [facility] 4 14:13:05 Medications Name Sig Start Date Stop Date Status Note LastModified by Organization Details LastModified Time fluoxetin e 40 mg capsule TAKE 1 CAPSULE BY MOUTH ONCE DAILY 06/21 completed Not Available Not Available Not Available amoxicill in 500 mg capsule TAKE 1 CAPSULE BY MOUTH THREE TIMES A DAY FOR 7 DAYS 05/30 completed Not Available Not Available Not Available ofloxacin 0.3 % eye drops ADMINIST ER 1 DROP INTO THE RIGHT EYE 4 TIMES A DAY FOR 5 DAYS. 06/21 completed Not Available Not Available Not Available hydrocodo ne 5 mg-acetam inophen 325 mg tablet TAKE 1 TABLET BY MOUTH EVERY 4-6 HOURS NEEDED FOR PAIN. 06/11 completed Not Available Not Available Not Available sucralfat e 1 gram tablet TAKE 1 TABLET BY MOUTH AT BREAKFAS T, LUNCH, DINNER, AND AT BEDTIME active Not Available Not Available No t Available phentermi ne 15 mg capsule TAKE 1 CAPSULE BY MOUTH EVERY MORNING 05/30 completed Not Available Not Available Not Available phentermi ne 37.5 mg tablet TAKE 1 TABLET BY MOUTH EVERY MORNING active Not Available Not Available No t Available ciproflox acin 500 mg tablet TAKE 1 TABLET (500 MG TOTAL) BY MOUTH 2 (TWO) TIMES A DAY FOR 11 DAYS 06/21 completed Not Available Not Available Not Available sulfameth oxazole 800 mg-trimet hoprim 160 mg tablet TAKE 1 TABLET BY MOUTH 2 (TWO) TIMES A DAY FOR 7 DAYS 05/30 completed Not Available Not Available Not Available omeprazol e 40 mg capsule,d elayed release TAKE 1 CAPSULE BY MOUTH ONCE DAILY 06/21 completed Not Available Not Available Not Available tramadol 50 mg tablet TAKE 1 TABLET BY MOUTH EVERY 12 HOURS NEEDED FOR PAIN 06/21 completed Not Available Not Available Not Available amoxicill in 500 mg tablet TAKE 1 TABLET BY MOUTH TWICE A DAY 06/21 completed Not Available Not Available Not Available terbinafi ne HCl 250 mg tablet active Not Available Not Available Not Available alprazola m 0.5 mg tablet PLEASE SEE ATTACHED FOR DETAILED DIRECTIO NS 05/30 completed Not Available Not Available Not Available estradiol 1 mg tablet TAKE 1 TABLET BY MOUTH EVERY DAY 2023 active Not Available Not Available Not Avai lable tamsulosi n 0.4 mg capsule TAKE 1 CAPSULE (0.4 MG TOTAL) BY MOUTH DAILY WITH DINNER FOR 14 DAYS 06/21 completed Not Available Not Available Not Available pantopraz ole 40 mg tablet,de layed release TAKE 1 TABLET BY MOUTH EVERY MORNING active Not Available Not Available No t Available levothyro xine 125 mcg tablet TAKE 1 TABLET BY MOUTH EVERY DAY active Not Available Not Available No t Available buspirone 10 mg tablet TAKE 1 TABLET BY MOUTH THREE TIMES A DAY active Not Available Not Available No t Available olopatadi ne 0.1 % eye drops INSTILL 1 DROP INTO BOTH EYES TWICE A DAY (EVERY 6-8 HOURS) 06/21 completed Not Available Not Available Not Available levothyro xine 150 mcg tablet active Not Available Not Available Not Available oxybutyni n chloride ER 5 mg tablet,ex tended release 24 hr TAKE 1 TABLET BY MOUTH DAILY FOR 14 DAYS. 06/21 completed Not Available Not Available Not Available estradiol 2 mg tablet TAKE 1 TABLET BY MOUTH EVERY DAY active Not Available Not Available No t Available methylpre dnisolone 4 mg tablets in a dose pack TAKE 6 TABLETS ON DAY 1 DIRECTED ON PACKAGE AND DECREASE BY 1 TAB EACH DAY FOR A TOTAL OF 6 DAYS 06/21 completed Not Available Not Available Not Available Prozac 10 mg capsule take 1 capsule by oral route every day 07/16 completed Prescrib ed Elsewher e: Yes Loca tion: [facility] odify By: nena castellon DateTime : 10/15/19 19 02:00:00 PM Not Available Not Available Not Available cefdinir 300 mg capsule TAKE 1 CAPSULE BY MOUTH TWICE A DAY 06/21 completed Not Available Not Available Not Available metoclopr amide 10 mg tablet TAKE 1 TABLET EVERY 6 HOURS DIRECTED TO HELP W/STOMAC H DISCOMFO RT & TO HELP W/BOWEL TRANSIT TIME 05/30 completed Not Available Not Available Not Available levothyro xine 112 mcg tablet TAKE 1 TABLET BY MOUTH EVERY DAY 06/21 completed Not Available Not Available Not Available oxycodone 5 mg tablet TAKE 1 TABLET BY MOUTH EVERY 8 HOURS NEEDED FOR PAIN 06/21 completed Not Available Not Available Not Available bupropion HCl XL 300 mg 24 hr tablet, extended release TAKE 1 TABLET BY MOUTH EVERY MORNING active Not Available Not Available No t Available bupropion HCl XL 150 mg 24 hr tablet, extended release TAKE 1 TABLET BY MOUTH EVERY DAY IN THE MORNING active Not Available Not Available No t Available topiramat e 50 mg tablet TAKE 1 TABLET BY MOUTH EVERY DAY active Not Available Not Available No t Available metronida zole 1 % topical gel APPLY TOPICALL Y DAILY 05/30 completed Not Available Not Available Not Available phentermi ne 07/16 completed Not Available Not Available Not Available Carafate 07/16 completed Not Available Not Available Not Available Botox 200 unit injection 06/21 completed Not Available Not Available Not Available Tirosint 13 mcg capsule take 1 capsule by oral route every day active Prescrib ed Elsewher e: Yes Loca tion: [facility] By: nena prietoer DateTime : 10/15/19 02:00:00 PM Not Available Not Available Not Available Linzess 290 mcg capsule TAKE 1 CAPSULE BY MOUTH EVERY DAY active Not Available Not Available No t Available Linzess 72 mcg capsule take 1 capsule by oral route every day on an empty stomach at least 30 minutes before 1st meal of the day 06/09 completed Prescrib ed Elsewher e: Yes Loca tion: [facility] By: nena [email or web address] DateTime : 10/15/19 02:00:00 PM Not Available Not Available Not Available Ubrelvy 100 mg tablet TAKE 1 TABLET BY MOUTH ONCE NEEDED active Not Available Not Available No t Available Ajovy 225 mg/1.5 mL subcutane ous auto-inje ctor active Not Available Not Available Not Available Wegovy 0.5 mg/0.5 mL subcutane ous pen injector active Not Available Not Available Not Available Qulipta 60 mg tablet TAKE 1 TABLET BY MOUTH EVERY DAY active Not Available Not Available No t Available Qulipta 30 mg tablet TAKE 1 TABLET BY MOUTH EVERY DAY 05/30 completed Not Available Not Available Not Available Vitals Date Recorded Body height Body mass index (BMI) Body weight Systolic blood pressure Diastolic blood pressure Provider Name and Address Organization Details Last Updated DateTime 05/30/2023 157.48 cm 30 kg/m2 23647.15 g 112 mm[Hg] 73 mm[Hg] Yamilet Genao [facility] 4 10:52:18 Date Recorded Body height Body mass index (BMI) Body weight Systolic blood pressure Diastolic blood pressure Provider Name and Address Organization Details Last Updated DateTime 06/09/2023 157.48 cm 29.8 kg/m2 93928.56 g 111 mm[Hg] 71 mm[Hg] Yamilet Genao [facility] 4 11:35:02 Date Recorded Body height Body mass index (BMI) Body weight Systolic blood pressure Diastolic blood pressure Provider Name and Address Organization Details Last Updated DateTime 07/17/2023 157.48 cm 28 kg/m2 02465.63 g 135 mm[Hg] 80 mm[Hg] Miriam Andrea [facility] 4 14:12:25 Date Recorded Body height Body mass index (BMI) Body weight Systolic blood pressure Diastolic blood pressure Provider Name and Address Organization Details Last Updated DateTime 06/21/2024 157.48 cm 34.2 kg/m2 81980.49 g 114 mm[Hg] 74 mm[Hg] Griselda Kristy [facility] 5 15:27:59 Social History Question Answer Notes LastModified by Organizat ion Details LastModified Time Tobacco Smoking Status Never Smoker Yamilet Genao [facility] 05/30/2023 10:54:41 What Is Your Level Of Alcohol Consumption? Occasional Information not available 05/30/2023 Are You Blind Or Do You Have Difficulty Seeing? No Information not available 05/30/2023 What Is Your Level Of Caffeine Consumption? None Information not available 05/30/2023 How Much Tobacco Do You Chew? None Information not available 05/30/2023 In The 14 Days Before Symptom Onset, Have You Had Close Contact With A Laboratory-confir med COVID-19 While That Case Was Ill? No Information not available 05/30/2023 In The 14 Days Before Symptom Onset, Have You Had Close Contact With A Person Who Is Under Investigation For COVID-19 While That Person Was Ill? No Information not available 05/30/2023 Have You Been To An Area Known To Be High Risk For COVID-19? Yes Information not available 05/30/2023 Are You Deaf Or Do You Have Serious Difficulty Hearing? No Information not available 05/30/2023 What Type Of Diet Are You Following? REGULAR Information not available 05/30/2023 What Is The Highest Grade Or Level Of School You Have Completed Or The Highest Degree You Have Received? 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 Yes Information not available 05/30/2023 Do You Use Your Seat Belt Or Car Seat Routinely? Yes [email or web address] Information not available 07/17/2023 Do You Have Smoke And Carbon Monoxide Detectors In Your Home? Yes Information not available 05/30/2023 How Much Tobacco Do You Smoke? No Information not available 05/30/2023 Do You Feel Stressed (tense, Restless, Nervous, Or Anxious, Or Unable To Sleep At Night)? [id number] Information not available 05/30/2023 Do You Use Any Illicit Or Recreational Drugs? No Information not available 05/30/2023 Do You Use Sunscreen Routinely? No Information not available 05/30/2023 Have You Used IV Drugs? No Information not available 05/30/2023 Sex: Unknown Functional Status Question Answer Note LastModified by Organizat ion Details LastModified Time Do you have difficulty walking or climbing stairs? No [email or web address] Information not available 07/23/2023 Are you able to walk? YESWOREST Information not available 05/30/2023 Are you able to care for yourself? Yes [email or web address] Information not available 07/23/2023 Do you have difficulty dressing or bathing? No [email or web address] Information not available 07/23/2023 What is your exercise level? Heavy Information not available 05/30/2023 Mental Status None recorded. Family History Nothing Reported. Medical History Condition Response Other Y Blood Transfusion N Dermatologic Disorders N Gestational Diabetes N Anxiety Disorder Y Autoimmune disease N Arthritis N Polyps N Infertility N Acid Reflux (GERD) Y Cancer N Varicosities N Stroke N Neurologic/Epilepsy N Fibromyalgia N Headaches Y Kidney Disease N Heart Problems N Kidney or Bladder Problems N Eating Disorder N Art (IVF or FET) N Hepatitis/Liver Disease N No Past Medical History N Urinary Tract Infection N Asthma N Trauma/Violence N Thrombophilias N Allergies (Food, seasonal, environmental ) N Breast Cancer N Drug/Latex Allergies/Reactions Y Lung Disease N Defects or Inherited Disease N Breast Problem N Hematologic disorders N Anesthesia Complications N History of STI Y Deep Vein Thrombosis N Polycystic ovary syndrome N History of abnormal pap Y Endometriosis N High Cholesterol N Thyroid Problems Y GI Problems Y Anemia Y Psychiatric Illness N Ovarian Cancer N Diabetes N Pulmonary (TB, Asthma) N Eczema N Abuse/Domestic Violence N Depression/ depression Y Heart Disease N Pre-Eclampsia N Hypertension N Osteoporosis N Gynecological History Statement/Question Response Abnormal Pap Y Date of Last Mammogram 06/30/2023 Date of LMP 05/05/2013 On BCP's at Conception? N N Was last menstrual period normal N STIs/STDs Y HPV Vaccine N Colposcopy 07/17/2023 Duration of Flow (days) 7 Current Control Method Hysterectom y Age at First Child 18 Sexually Active? Y N/A Date of DEXA bone scan Age of first menstrual cycle 11 Date of Last Pap Smear 06/09/2023 Sexual Problems? N Desired Control Method N/A LMP Approximate N Obstetrics History GPAL:G 4 P 2 0 2 2 Type Value Full Term 2 Spontaneous 2 Living 2 Total 4 Past Encounters Encounter ID Performer Location Encounter Start Date Encounter Closed Date Diagnosis/Indication Diagnosis SNOMED-CT Code Diagnosis ICD10 Code Diagnosis Note [id number] Girish Ray MD [address] [address] 05/30/2023 09:57:08 05/30/2023 12:03:36 Menopausal symptom 26406438 N95.1 Mass of ovary 759798406 R19.09 27-year-ol d female presents for ER follow-up. She was in the emergency department for an unrelated issue and had a CT scan of the abdomen or pelvis. CT scan revealed an enlarged lobulated ovary. We discussed these findings. We agreed to perform ultrasound today. She had pelvic ultrasound . She returned to the room. We discussed the results. She has a normal-izabel earing right ovary. She has no other symptoms other than menopausal symptoms. We talked about menopausal symptoms for a while. We spent over 20 minutes face-to-fa ce. More than 50% was counseling . Talked about treatment of hot flashes [id number] [facility] [address],[facility] [place] [address] 05/30/2023 11:06:41 05/30/2023 13:52:54 CT of pelvis abnormal [id number] 5320121 R93.89 R10.2 [id number] Girish Ray MD [facility] [address],[place] [address] 06/09/2023 11:20:53 06/09/2023 12:26:19 Gynecologic examination 32773864 Z01.419 Annual gynecologi chandler exam performed. Patient will come back in a year unless there are new symptoms. Suggest Calcium with Vitamin D if not eating in diet. Patient advised to get annual flu shot. Recommend yearly physicals and preform monthly breast exams. Genetic testing is available for patients with family history of cancer. Engage in safe sexual practices, use condoms. Encouraged to have daily exercise. Avoid tobacco and illicit drugs, moderation of alcohol. If BMI greater than 25 dietary consult advised. If you have any questions please call or email. mammogram- ordered Pap smear- today [id number] Girish Ray MD [facility] [address],[facility] [place] [address] 07/17/2023 13:46:17 07/17/2023 15:09:58 Human papillomavirus deoxyribonucleic acid detected, high risk on cervical specimen [id number] R87.810 colposcopy was performed of the vaginal cuff. Abnormal tissue was observed. It was biopsy. She tolerated it well. [id number] SYDNI JIMENEZ, MONO [facility] [address] [address] 06/21/2024 15:08:08 06/21/2024 16:39:03 Mastodynia of bilateral breasts [id number] 8817560 N64.4 We discussed her breast exam findings and pt is counseled. Questions answered. Imaging: dx bilateral mammogram for mastodynia . FU for WWE in one year or sooner if needed. Recommende d well-fitti ng sports bra. Recommende d vitamin E supplement 400-600 IU once or twice daily to help with breast tenderness .Patient advised to perform self-breas t exams and report any changes. Gynecologi c examination 38333356 Z01.419 Annual gynecologi chandler exam performed. Patient will come back in a year unless there are new symptoms. Suggest Calcium with Vitamin D if not eating in diet. Patient advised to get annual flu shot. Recommend yearly physicals and perform monthly breast exams. Genetic testing is available for patients with family history of cancer. Engage in safe sexual practices, use condoms. Encouraged to have daily exercise. Avoid tobacco and illicit drugs, moderation of alcohol. If BMI greater than 25 dietary consult advised. If you have any questions please call or email. mammogram- DUE; dx bilateral mammogram ordered to evaluate mastodynia colon cancer screening - n/a DEXA scan- n/a Pap smear- pap w/ HPV collected (vaginal cuff) - NILM, HPV positive in 2023 laboratory evaluation - PCP STI testing - requested Menopausal symptom 69829 002 N95.1 Discussed increasing dose of estradiol to 2 mg PO daily due to pt report of increasing hot flashes and vaginal dryness. Recommende d coconut oil to use during intercours e as lubricant. Risks/bene fits/AEs of continued use reviewed.D iscussed that HRT can contribute to generalize d breast tenderness . Venereal d isease screening [id number] Z11.3 Pt requested STI testing.Di scussed the various types of STDs, related symptoms and the potential consequenc es (including effects on fertility) of STD infections . Reviewed ways to limit exposure and prevention techniques . Health Concerns Section Related Observation LastModified by Organization Detai ls LastModified Time None Recorded Concern Status LastModified by Organization Details LastModified Time None Recorded Advance Directives Directive None Recorded Payers Encounter Date Sequence Insurance Name Policy Number Policy Francis Covered Member ID Francis Member ID Guarantor Name 05/30/2023 1 [place] [id number] A [place] [id number] [place] 05/30/2023 1 [place] [id number] A [place] [id number] 18 [place] [place] 06/09/2023 1 [place] [id number] A [place] [id number] 18 [place] [employer] [place] 07/17/2023 1 [place] [id number] A [place] [id number] 18 [place] [employer] [place] 06/21/2024 1 [place] [id number] A [place] [place] [id number] 18 [place] [place] Notes Date Note Type Note Provider Name and Address Organization Details Recorded Time 05/30/2023 text/html 27-year-old brian mendenhall presents for ER follow-up. She was in the emergency department for an unrelated issue and had a CT scan of the abdomen or pelvis. CT scan revealed an enlarged lobulated ovary. We discussed these findings. We agreed to perform ultrasound today. She had pelvic ultrasound. She returned to the room. We discussed the results. She has a normal-appearing right ovary. She has no other symptoms other than menopausal symptoms. We talked about menopausal symptoms for a while. We spent over 20 minutes [id number]. More than 50% was counseling. Talked about treatment of hot flashes Girish Ray MD [address], [place], [address], [facility] 05/30/2023 12:03:09 06/09/2023 text/html Annual GYNReport ed bypatient.History: no gynecologic complaints Urinary symptoms:No hematuria; No incontinence Vulva:No genital lesion Vagina:Normal vaginal discharge Breast:No breast pain; No breast lump Sexual complaints:No sexual complaints Menopausal Symptoms:No menopausal symptoms; Normal vaginal lubrication Psychological symptoms:No depression; No anxiety Preventive measures:Encourage self breast examination; Encourage regular exercise Girish Ray MD [address], [place], [address], [facility] 06/09/2023 12:18:07 07/17/2023 text/html 42-year-old fema abdirashid who presents for colposcopy after testing positive for HPV. To perform colposcopy of vagina. Status post hysterectomy. The procedure was explained to the patient. She understands the procedure. She understands the risks, benefits, and alternatives. She is completed the informed Girish Ray MD [address], [place], [address], [facility] 07/17/2023 14:57:02 06/21/2024 text/html Annual Taping Foreman Post-MenopausalRep orted bypatient.Menopaus al Symptoms:hot flashes;inadequacy of lubrication of vaginal mucosa;insomnia due to night sweats Vaginal Bleeding:history of menopause having occurred; no history of post menopausal bleeding Urinary Symptoms:no hematuria; no incontinence; no nocturia; no urinary frequency Vulva:no genital lesion; no vulvar atrophy Vagina:normal vaginal discharge; no vaginal atrophy Breast:no breast lump; no nipple discharge;breast pain Sexual Complaints:no sexual complaints Psychological Symptoms:no depression; no anxiety Preventive Measures:encourage regular mammograms starting age 40; encourage self breast examination; encourage regular exercise; encourage no tobacco use Patient here for annual exam.Patient hx of total hyst with left oophorectomy.Rocio olson has been on HRT with estradiol 1 mg PO daily x 1 year, but reports increasing hot flashes, night sweats, and vaginal dryness over the past few months.Patient also reports bilateral breast tenderness and pain that has been worsening over the past 3 months. Patient states that she cannot have anything rub against her chest without having pain. Patient denies nipple discharge, lumps, or skin changes. SYDNI JIMENEZ, MONO [address], [place], [address], [facility] 06/21/2024 16:38:45 OBGyn Episode Ob Episode Information Episode Created Date Number of Fetuses Patient Bloodtype Patient rh Status Prepregnancy Weight lbs Domestic Partner Domestic Partner Phone Father Name Shading Painter Status 05/30/19 24 1 CLOSED Fetus Data First Name Last Name Admitted to NICU Weight (g) Sex Living Outcome Pediatric Complications Fetus ID Race Codes Race Delivery Type 3968.93 M Full Term [id number] Repeat Jarod Calculation Initial Jarod Date Initial Exam Date Initial Exam Provider Initial Ultrasound Date Last Menstrual Period Date Ultra Sound Weeks Gestation 0 Eighteen To Twenty Week Jarod Update Ultra Sound Date Fundal Height At Umbil Quickening Date Ultra Sound Latest Weeks Gestation Final Jarod Confirmed By Final Jarod Confirmed Date Final Jarod Date Ultra Sound Latest Days Gestation 0 0 Menstrual History Last Menstrual Date Menses Monthly On Bcp Conception Prior Menses Frequency Hcg Plus Date Menarche Onset Age Delivery Information Delivery Date Delivery Type Labor Anesthesia Weeks Gestation Incision Type Labor Labor Length Hrs Delivered By Post Complications Tubal Sterilization Discharge Date Comments 3 38 Lena Discharge Information Feeding Method Contraceptive Method Maternal HG B and HCT Levels Ob Episode Information Episode Created Date Number of Fetuses Patient Bloodtype Patient rh Status Prepregnancy Weight lbs Domestic Partner Domestic Partner Phone Father Name Shading Painter Status 05/30/19 24 1 CLOSED Fetus Data First Name Last Name Admitted to NICU Weight (g) Sex Living Outcome Pediatric Complications Fetus ID Race Codes Race Delivery Type 3883.65 4704 F Full Term [id number] Primary Jarod Calculation Initial Jarod Date Initial Exam Date Initial Exam Provider Initial Ultrasound Date Last Menstrual Period Date Ultra Sound Weeks Gestation 0 Eighteen To Twenty Week Jarod Update Ultra Sound Date Fundal Height At Umbil Quickening Date Ultra Sound Latest Weeks Gestation Final Jarod Confirmed By Final Jarod Confirmed Date Final Jarod Date Ultra Sound Latest Days Gestation 0 0 Menstrual History Last Menstrual Date Menses Monthly On Bcp Conception Prior Menses Frequency Hcg Plus Date Menarche Onset Age Delivery Information Delivery Date Delivery Type Labor Anesthesia Weeks Gestation Incision Type Labor Labor Length Hrs Delivered By Post Complications Tubal Sterilization Discharge Date Comments 1 40 Ashley emergency c/s Discharge Information Feeding Method Contraceptive Method Maternal HG B and HCT Levels Ob Episode Information Episode Created Date Number of Fetuses Patient Bloodtype Patient rh Status Prepregnancy Weight lbs Domestic Partner Domestic Partner Phone Father Name Shading Painter Status 05/30/19 24 1 CLOSED Fetus Data First Name Last Name Admitted to NICU Weight (g) Sex Living Outcome Pediatric Complications Fetus ID Race Codes Race Delivery Type , [place] [id number] Jarod Calculation Initial Jarod Date Initial Exam Date Initial Exam Provider Initial Ultrasound Date Last Menstrual Period Date Ultra Sound Weeks Gestation 0 Eighteen To Twenty Week Jarod Update Ultra Sound Date Fundal Height At Umbil Quickening Date Ultra Sound Latest Weeks Gestation Final Jarod Confirmed By Final Jarod Confirmed Date Final Jarod Date Ultra Sound Latest Days Gestation 0 0 Menstrual History Last Menstrual Date Menses Monthly On Bcp Conception Prior Menses Frequency Hcg Plus Date Menarche Onset Age Delivery Information Delivery Date Delivery Type Labor Anesthesia Weeks Gestation Incision Type Labor Labor Length Hrs Delivered By Post Complications Tubal Sterilization Discharge Date Comments 0 Discharge Information Feeding Method Contraceptive Method Maternal HG B and HCT Levels Ob Episode Information Episode Created Date Number of Fetuses Patient Bloodtype Patient rh Status Prepregnancy Weight lbs Domestic Partner Domestic Partner Phone Father Name Shading Painter Status 05/30/19 24 1 CLOSED Fetus Data First Name Last Name Admitted to NICU Weight (g) Sex Living Outcome Pediatric Complications Fetus ID Race Codes Race Delivery Type , [place] o[place] [id number] Jarod Calculation Initial Jarod Date Initial Exam Date Initial Exam Provider Initial Ultrasound Date Last Menstrual Period Date Ultra Sound Weeks Gestation 0 Eighteen To Twenty Week Jarod Update Ultra Sound Date Fundal Height At Umbil Quickening Date Ultra Sound Latest Weeks Gestation Final Jarod Confirmed By Final Jarod Confirmed Date Final Jarod Date Ultra Sound Latest Days Gestation 0 0 Menstrual History Last Menstrual Date Menses Monthly On Bcp Conception Prior Menses Frequency Hcg Plus Date Menarche Onset Age Delivery Information Delivery Date Delivery Type Labor Anesthesia Weeks Gestation Incision Type Labor Labor Length Hrs Delivered By Post Complications Tubal Sterilization Discharge Date Comments 8 Discharge Information Feeding Method Contraceptive Method Maternal HG B and HCT Levels
--- OUTSIDE RECORDS SUMMARY | 2024-08-18 16:42 | XMS_ITS ---
Author Organization [facility] Address [address] [place] [address] Care Team Providers Care Molder Feeder Name Role Phone Laith Krishnamurthy MD Primary Care Provider Travis Fuentes SOLAR SALES SPECIALIST Unavailable [phone] Transplant Episode Kidney Potential Donor [facility] ([place], [place]) - [facility] Referred on 07/09/2019 Marked as Active on 07/09/2019 Reason: Pending Clinical Review Kidney CoordinatorAco Ej Pink MD Fax: N/A Email: N/A Care Team Name Role Phone Fax Email Aco Ej Pink MD Kidney Coordinator N/A N/A Events Pre-Donation Referred: 07/09/2019
--- OUTSIDE RECORDS SUMMARY | 2024-08-18 16:42 | XMS_ITS | Clinical Summary ---
Author Organization [facility] Address [address] [facility] [place] [address] Phone Care Team Providers Care Javascript Front End Developer Name Role Phone Laith Krishnamurthy MD Primary Care Provider Emy Pepe APRN, ENVIRONMENTAL PROTECTION SPECIALIST Unavailable [phone]- [phone] Tono Wade MD Unavailable [phone] Allergies Active Allergy Reactions Criticality Noted Date Comments Aspirin Hives 10/09/2017 Ibuprofen Other (see Comments) 12/31/2023 Stomach problems Ondansetron Hcl Hives 10/09/2017 Medications levothyroxine (SYNTHROID) 50 MCG Tablet 75 mcg. 8 Active linaclotide (LINZESS) 145 MCG Capsule Take by mouth every morning (before breakfast). Active botulinum Toxin Type A (Botox) 200 units Recon SolnIndications :Chronic migraine without aura without status migrainosus, not intractable 155 Units by Intramuscular route every 90 days. 1 Each 3 4 Active pantoprazole (PROTONIX) 20 MG Tablet Delayed Response Take 40 mg by mouth daily. Active buPROPion (WELLBUTRIN) 300 MG TABLET SR 24 HR XL tablet Take 300 mg by mouth every morning. Active Sucralfate (CARAFATE PO) Take by mouth. A ctive Ubrogepant (Ubrelvy) 100 MG TabletIndicatio ns:Migraine Take 1 tablet as needed for headache/migraine . May take second tablet in 2 hours. Indications: Migraine Headache 10 Tablet 4 5 Active Qulipta 60 MG TabletIndicatio ns:Episodic migraine TAKE 1 TABLET BY MOUTH EVERY DAY 30 Tablet 2 5 Active Fremanezumab-vf rm (Ajovy) 225 MG/1.5ML Solution Auto-injectorIn dications:Chron ic migraine without aura without status migrainosus, not intractable,Epi sodic migraine 225 mg by Subcutaneous route every 30 days. 1.68 mL 2 5 Active Active Problems Problem Noted Date Diagnosed Date Migraine without aura and wi thout status migrainosus, not intractable 04/23/2019 Encounters Date Type Department Care Team Description 08/17/2024 Telephone [facility] Neurology [facility] [address] [place] [address] Tono Wade MD 08/08/2024 Results Follow-Up [facility] Neurology [facility] [address] [place] [address] Emy Pepe, FIRE CONTROL SYSTEM INSTALLER, ENVIRONMENTAL PROTECTION SPECIALIST 08/05/2024 12:52 PM CDT - 08/05/2024 11:59 PM CDT Hospital Encounter [facility] MRI [address] [place] [address] Emy Pepe, FIRE CONTROL SYSTEM INSTALLER, ENVIRONMENTAL PROTECTION SPECIALIST Discharge Disposition: Discharged to home or Selfcare 08/05/2024 Travel 07/13/2024 Telephone [facility] Neurology [facility] [address] [place] [phone] Emy Pepe, FIRE CONTROL SYSTEM INSTALLER, ENVIRONMENTAL PROTECTION SPECIALIST 07/08/2024 Telephone [facility] Neurology [facility] [address] [place] [address] Emy Pepe, FIRE CONTROL SYSTEM INSTALLER, ENVIRONMENTAL PROTECTION SPECIALIST 07/06/2024 Refill [facility] Neurology [facility] [address] [place] [phone] Emy Pepe APRN, ENVIRONMENTAL PROTECTION SPECIALIST Medication Refill 06/30/2024 3:30 PM GROUP DIRECTOR Office Visit [facility] - Neurology [facility] [address] [place] [address] Emy Pepe APRN, ENVIRONMENTAL PROTECTION SPECIALIST Chronic migraine without aura without status migrainosus, not intractable (Primary Dx); IIH (idiopathic intracranial hypertension) Discharge Disposition: Discharged to home or Selfcare 06/30/2024 Travel 05/28/2024 2:30 PM GROUP DIRECTOR Procedure Visit [facility] Neurology [facility] [address] [place] [address] Tono Wade MD Chronic migraine without aura without status migrainosus, not intractable (Primary Dx) Discharge Disposition: Discharged to home or Selfcare 05/28/2024 Travel from Last 3 Months Family History Medical History Relation Name Comments No Known Problems Father Relation Name Status Comments Father Alive Mother Alive Social History Tobacco Use Types Packs/Day Years Used Date Smoking Tobacco: Never Smokeless Tobacco: Never Tobacco Cessation:Counseling Given: Not Answered Alcohol Use Standard Drinks/Week Comments Yes 0 (1 standard drink = 0.6 oz pur e alcohol) occassional Comments No Sex and Gender Information Value Date Recorded Sex Assigned at Not on file Legal Sex Female 8:52 PM CDT Gender Identity Not on file Sexual Orientation Not on file Last Filed Vital Signs Vital Sign Reading Time Taken Comments Blood Pressure 108/70 06/30/2024 3:24 PM GROUP DIRECTOR Pulse 58 06/30/2024 3:24 PM GROUP DIRECTOR Temperature 36.6 C (97.9 F) 06/30/2024 3:24 PM GROUP DIRECTOR Respiratory Rate 16 06/30/2024 3:24 PM GROUP DIRECTOR Oxygen Saturation 98% 06/30/2024 3:24 PM GROUP DIRECTOR Inhaled Oxygen Concentration - - Weight 84.6 kg (186 lb 6.4 oz) 06/30/2024 3:24 P M GROUP DIRECTOR Height 157.5 cm (5' 2 ) 06/30/2024 3:24 PM GROUP DIRECTOR Body Mass Index 34.09 06/30/2024 3:24 PM GROUP DIRECTOR Plan of Treatment Upcoming Encounters Date Type Department Care Team (Late st Contact Info) Description 08/27/2024 10:45 AM CDT Procedure Visit [facility] - [facility]rology - [place] [address] [place] [address] Emy Pepe, FIRE CONTROL SYSTEM INSTALLER, ENVIRONMENTAL PROTECTION SPECIALIST [address] [place] [address] Tono Wade MD [address] [place] [address] Health Maintenance Due Date Last Done Comments Mammogram 1980 TdaP Immunization 1980 Hepatitis B Immunization (1 of 3 - 19+ 3-dose series) 12/23/1999 Discussion re Starting/Frequ ency of Mammograms 2020 SARS-COV-2 Immunization ( season) 2024 07/13/2020 Influenza Immunization (Seas on Ended) 2025 Respiratory Syncytial Virus (RSV) Immunization (Adult) (1 - 1-dose 75+ series) 12/23/2055 Hepatitis C Virus (HCV) Screening Completed 025 Meningococcal Immunization (ACWY) Aged Out No longer eligible based on patient's age to complete this topic Pneumococcal Immunization Combined Aged Out No longer eligible based on patient's age to complete this topic Rotavirus Immunization Aged Out No lo nger eligible based on patient's age to complete this topic Procedures Procedure Name Priority Date/Time Associated Diagnosis Comments MRI BRAIN W/WO CONTRAST Routine 08/05/2024 2:00 PM CDT Chronic migraine without aura without status migrainosus, not intractable IIH (idiopathic intracranial hypertension) CHEMODENERV MUSCLE(S) BILAT FACIAL/TRIGEMINAL/CE RV SPINE Routine 05/28/2024 2:30 PM GROUP DIRECTOR Chronic migraine without aura without status migrainosus, not intractable from Last 3 Months Results * MRI BRAIN W/WO CONTRAST (08/05/2024 2:00 PM CDT) Anatomical Region Laterality Modality Head N/A Magnetic Resonan ce 08/06/2024 2:43 PM CDT Impressions 08/06/2024 2:46 PM CDT IMPRESSION: 1. Normal brain MRI. 2. No evidence of an empty sella, tonsillar ectopia or definitive transverse sinus stenosis to suggest idiopathic intracranial hypertension. The orbits are not well evaluated on this non-orbit MRI. Narrative 08/06/2024 2:46 PM CDT EXAM DESCRIPTION: MRI BRAIN W/WO CONTRAST REASON FOR STUDY: Eye doctor reported patient had elevated intracranial pressure. frequent headaches and migraines for years. Prior MRI 09/13/22 TECHNIQUE: Multiplanar imaging includes noncontrast T1, T2, FLAIR, diffusion with ADC map and post contrast T1 sequences. Additional sequence(s) sensitive to blood products. Images stored on PACS. CONTRAST TYPE/DOSE: 18mL of GADOTERIDOL 279.3 MG/ML IV SOLN injected via Intravenous COMPARISON: Brain MRI dated 09/13/2022 FINDINGS: CEREBRUM: No hemorrhage, edema, or mass effect. No abnormal enhancement. WHITE MATTER: Normal. POSTERIOR FOSSA: Brainstem and cerebellum appear unremarkable. No abnormal enhancement. DIFFUSION IMAGING: No recent infarction. EXTRAAXIAL SPACES: No hemorrhage. No mass or abnormal enhancement. BRAIN VOLUME: Within normal limits for age. PITUITARY: Unremarkable. VASCULATURE: No flow disturbance identified. ORBITS: No masses. Globes normal within limitation of a non-orbit MRI. PARANASAL SINUSES AND MASTOIDS: Well-aerated with no fluid levels. No mucosa thickening. OTHER: No other significant finding. THIS IS AN ELECTRONICALLY VERIFIED FINAL REPORT 08/06/2024 2:43 PM - Electronically signed by Dru Forbes M.D. MM: MM Report ID: [id number] Reading Location: [id number] Procedure Note Dru Forbes MD - 08/06/2024 EXAM DESCRIPTION: MRI BRAIN W/WO CONTRAST REASON FOR STUDY: Eye doctor reported patient had elevated intracranial pressure. frequent headaches and migraines for years. Prior MRI 09/13/22 TECHNIQUE: Multiplanar imaging includes noncontrast T1, T2, FLAIR, diffusion with ADC map and post contrast T1 sequences. Additional sequence(s) sensitive to blood products. Images stored on PACS. CONTRAST TYPE/DOSE: 18mL of GADOTERIDOL 279.3 MG/ML IV SOLN injected via Intravenous COMPARISON: Brain MRI dated 09/13/2022 FINDINGS: CEREBRUM: No hemorrhage, edema, or mass effect. No abnormal enhancement. WHITE MATTER: Normal. POSTERIOR FOSSA: Brainstem and cerebellum appear unremarkable. No abnormal enhancement. DIFFUSION IMAGING: No recent infarction. EXTRAAXIAL SPACES: No hemorrhage. No mass or abnormal enhancement. BRAIN VOLUME: Within normal limits for age. PITUITARY: Unremarkable. VASCULATURE: No flow disturbance identified. ORBITS: No masses. Globes normal within limitation of a non-orbit MRI. PARANASAL SINUSES AND MASTOIDS: Well-aerated with no fluid levels. No mucosa thickening. OTHER: No other significant finding. THIS IS AN ELECTRONICALLY VERIFIED FINAL REPORT 08/06/2024 2:43 PM - Electronically signed by Dru Forbes M.D. MM: MM Report ID: [id number] Reading Location: [id number] IMPRESSION: 1. Normal brain MRI. 2. No evidence of an empty sella, tonsillar ectopia or definitive transverse sinus stenosis to suggest idiopathic intracranial hypertension. The orbits are not well evaluated on this non-orbit MRI. us Emy Pepe APRN, ENVIRONMENTAL PROTECTION SPECIALIST IMG MR ORDERABLES Fi nal Result * CHEMODENERV MUSCLE(S) BILAT FACIAL/TRIGEMINAL/CERV SPINE (05/28/2024 2:30 PM GROUP DIRECTOR) Narrative Tono Wade MD - 05/28/2024 2:30 PM GROUP DIRECTOR Tono Wade MD 05/29/2024 3:35 PM Nuris presents for administration of botox for treatment of chronic migraines. Frequency of headaches compared to pre-Botox: improved Function since receiving Botox: improved Wasted amount of Botox: 45 Her skin was prepped with an alcohol wipe. Botox was diluted with 200 units into 4 ml saline and administered with a 30 gauge 1/2 inch needle to the following sites: To the corrugators 10 units was divided into two sites. To the procerus 5 units was admistered to 1 site To the frontalis 20 units was divided into 4 sites To the temporalis 40 units was divided into 8 sites To the Occipitalis 30 units was divided into 6 sites To the cervical paraspinals 20 units divided into 4 sites To the trapezius 30 units divided into 6 sites. This procedure has been fully reviewed with the patient and written informed consent has been obtained. Patient tolerated the procedure with no complications. Tono Wade MD [facility] Final Result from Last 3 Months Insurance [facility] Care Teams Javascript Front End Developer Relationship Specialty Start Date End Date Laith Krishnamurthy MD PCP - General Family Medicine 07/04/17 Emy Pepe, FIRE CONTROL SYSTEM INSTALLER, ENVIRONMENTAL PROTECTION SPECIALIST [address] [place] [address] Nurse Practitioner Advanced Practice Nurse 08/27/22 Tono Wade MD [address] [place] [address] Consulting Physician Neurology 05/28/24
--- OUTSIDE RECORDS SUMMARY | 2024-08-18 16:42 | XMS_ITS | Encounter Summary ---
Author Organization [facility] Address [address] [place] [address] Phone Care Team Providers Care University Intern Name Role Phone Laith Krishnamurthy MD Primary Care Provider Emy Pepe APRN, PAIRER SUBSTANDARD Unavailable [phone] Tono Wade MD Unavailable [phone] Reason for Visit * Reason Comments Medication Refill Encounter Details Date Type Department Care Team (Late st Contact Info) Description 06/20/2020 Refill [facility] - [place] [address] [place] [address] Tono Wade MD [address] [place] [address] Medication Refill Social History Tobacco [...] encounter Miscellaneous Notes * Telephone Encounter - Cony Fountain RN - 06/20/2020 11:03 AM CST Requested Prescriptions Pending Prescriptions Disp Refills ??? Ubrelvy 50 MG Tablet [Pharmacy Med Name: UBRELVY 50 MG TABLET] 10 Tablet 3 Sig: TAKE 1 TAB BY MOUTH NEEDED FOR MIGRAINE. A SECOND DOSE MAY BE TAKEN AFTER 2 HOURS IF NEEDED. ??? wdyxptexit-xhkrmsbvbgxes-cygsebri (FIORICET, ESGIC) 50-325-40 MG Tablet 20 Tablet 0 Sig: Take 1 Tablet by mouth every 4 hours as needed for Migraine. SPORTATION DRIVER documented in this encounter Plan of Treatment Upcoming Encounters Date Type Department Care Team (Late st Contact Info) Description 08/27/2024 10:45 AM CDT Procedure Visit [facility] - [facility]rology [facility] [address] [place] [phone] Emy Pepe APRN, PAIRER SUBSTANDARD [address] [place] [address] Tono Wade MD [address] [place] [address] documented as of this encounter Visit Diagnoses Diagnosis Migraine without aura and without status migrainosus, not intractable Migraine without aura, without mention of intractable migraine without mention of status migrainosus documented in this encounter Care Teams University Intern Relationship Specialty Start Date End Date Laith Krishnamurthy MD PCP - General Family Medicine 07/04/17 Emy Pepe APRN, PAIRER SUBSTANDARD [address] [place] [address] Nurse Practitioner Advanced Practice Nurse 08/27/22 Tono Wade MD [address] [place] [phone] Consulting Physician Neurology 05/28/24 documented as of this encounter
--- OUTSIDE RECORDS SUMMARY | 2024-08-18 16:42 | XMS_ITS | Encounter Summary ---
Author Organization [facility] Address [address] [place] [address] Phone Care Team Providers Care Medical Technical Writer Name Role Phone Laith Krishnamurthy MD Primary Care Provider Emy Pepe APRN, SUMMER ANALYST Unavailable Tono Wade MD Unavailable [phone] Reason for Visit * Reason Comments Medication Refill Encounter Details Date Type Department Care Team (Late st Contact Info) Description 06/26/2023 Refill [facility] [address] [place] [id number] Emy Pepe APRN, SUMMER ANALYST [address] [place] [address] Medication Refill Social History Tobacco Use Types [...] Telephone Encounter - Carolina Tobar RN - 06/26/2023 1:00 PM CST Medication failed the protocol, provider to review and approve the medication order if appropriate. Requested Prescriptions Pending Prescriptions Disp Refills Ubrelvy 100 MG Tablet [Pharmacy Med Name: UBRELVY 100 MG TABLET] 16 Tablet 2 Sig: TAKE 1 TABLET BY MOUTH ONCE NEEDED FOR OTHER. Not Delegated - Off Protocol Failed - 06/26/2023 12:21 PM Failed - This refill cannot be delegated Passed - Visit with relevant provider in past 12 months or upcoming 90 days Recent Visits Date Type Provider Dept 10/11/22 Telemedicine Emy Pepe APRN, EDGARD [facility] Neurology [facility] 08/27/22 Office Visit Emy Pepe APRN, EDGARD [facility] Neurology [facility] Showing recent visits within past 365 days and meeting all other requirements Future Appointments No visits were found meeting these conditions. Showing future appointments within next 90 days and meeting all other requirements GATION LABORER documented in this encounter Plan of Treatment Upcoming Encounters Date Type Department Care Team (Late st Contact Info) Description 08/27/2024 10:45 AM CDT Procedure Visit [facility] - [facility] [address] [place] [address] Emy Pepe APRN, SUMMER ANALYST [address] [place] [address] Tono Wade MD [address] [place] [address] documented as of this encounter Visit Diagnoses Diagnosis Episodic migraine documented in this encounter Care Teams Medical Technical Writer Relationship Specialty Start Date End Date Laith Krishnamurthy MD PCP - General Family Medicine 07/04/17 Emy Pepe APRN, SUMMER ANALYST [address] [place] [address] Nurse Practitioner Advanced Practice Nurse 08/27/22 Tono Wade MD [address] [place] [address] Consulting Physician Neurology 05/28/24 documented as of this encounter
[2024-08-18 20:21] LABS: Free T4 Free Thyroxine 1.33 ng/dL (0.78-2.19)
== END 2024-08-18 15:38 | disposition home or self-care (01) ==
LOC: ANHGOSHLAB 15:38
PROVIDERS: PCP Family Medicine; Visit Provider Nurse Practitioner Family
DX: E03.9 Hypothyroidism, unspecified (principal)
CPT/HCPCS: 36415; 84439; 84443

== ENCOUNTER 2025-01-24 15:39 | Outpatient (CLI) | payer BC, SELFPAY ==
[2025-01-24 19:29] LABS: Free T4 Free Thyroxine 1.44 ng/dL (0.78-2.19)
[2025-01-24 19:34] LABS: Hematocrit 34.5 % (37.0-47.0); Hemoglobin 11.0 g/dL (12.0-15.0); Immature Granulocyte Percent A 0.3 % (0-0.5); Lymphocytes Absolute Auto 2.30 K/mm3 (0.9-3.2); Mean Corpuscular HGB Conc 31.9 g/dl (32-36); Mean Corpuscular Hemoglobin 27.2 pg (26-34); Mean Corpuscular Volume 85.4 fl (80-100); Nucleated Red Blood Cells Absolute Auto 0.000 K/mm3 (0.0-0.012); Nucleated Red Blood Cells Perc 0.0 % (0.0-0.2); Platelet Count Result 293 k/mm3 (150-375); Red Blood Count 4.04 M/mm3 (4.2-5.4); White Blood Count 5.9 K/mm3 (4.5-10.0)
[2025-01-24 19:38] LABS: Thyroid Stimulating Hormone 2.960 uIU/mL (0.465-4.680)
[2025-01-24 19:54] LABS: Vitamin B12 277.0 pg/mL (239-931)
== END 2025-01-24 15:40 | disposition home or self-care (01) ==
LOC: ANHGOSHLAB 15:40
PROVIDERS: PCP Nurse Practitioner Family; Visit Provider Nurse Practitioner Family
DX: Z90.3 Acquired absence of stomach [part of] (principal); E03.9 Hypothyroidism, unspecified; E55.9 Vitamin D deficiency, unspecified
CPT/HCPCS: 36415; 82306; 82607; 84439; 84443; 85025

== ENCOUNTER 2025-03-10 13:32 | Emergency (ER) | payer BC, SELFPAY ==
[2025-03-10 13:36] VITALS: BP 126/79; PULSE 64; RESP 20; TEMP 36.6; O2SAT 100
--- NOTE | 2025-03-10 14:16 | ED.BACK ---
HPI - Back Pain/Injury General Chief Complaint: Back Pain/Injury Stated Complaint: upper back pain Time Seen by Provider: 03/10/25 14:07 Source: patient and RN notes reviewed Mode of arrival: ambulatory Limitations: no limitations History of Present Illness HPI Narrative: 44-year-old female patient presents today complaining of bilateral upper back pain that started this morning when she was putting some dishes into an overhead cabinet. Pain has been intermittent, but severe when spasm starts. Denies radiation of the pain, numbness or tingling. No OTC treatment prior to arrival. Related Data Home Medications ?Medication ?Instructions ?Recorded ?Confirmed ?Last Taken ?Type linaclotide 290 mcg capsule 290 mcg PO DAILY 12/29/19 01/27/25 Unknown History (Linzess) bupropion HCl 300 mg 24 hr tablet, mg PO DAILY 11/26/23 01/27/25 Unknown History extended release ubrogepant 100 mg tablet (Ubrelvy) mg PO ONCE 11/26/23 01/27/25 Unknown History pantoprazole 20 mg tablet,delayed 20 mg PO QAM 01/14/24 01/27/25 Unknown History release fremanezumab-vfrm 225 mg/1.5 mL 225 mg subcut MONTHLY 07/13/24 01/27/25 Unknown History subcutaneous auto-injector (Ajovy) Allergies Allergy/AdvReac Type Severity Reaction Status Date / Time ibuprofen Allergy Mild Nausea and Verified 03/10/25 13:39 Vomiting aspirin Allergy Unknown Hives / Verified 03/10/25 13:39 Red Face ondansetron Allergy Unknown Hives Verified 03/10/25 13:39 sumatriptan Allergy Unknown Hives Verified 03/10/25 13:39 [facility] Past Medical History Medical History History of stent insertion of renal artery Kidney stones Adult wellness visit Abnormal mammogram Heart murmur Colon cancer screening History of 2019 novel coronavirus disease (COVID-19) Rosacea Irritable bowel syndrome with constipation Dyslipidemia Migraine Hypothyroidism (acquired) Surgical History Surgical History S/P foot surgery, right History of 2000 and 2002 History of tubal ligation 2003 History of sleeve gastrectomy 09/2017 H/O removal of neck cyst 2006 H/O: hysterectomy 2014 Family History Family History Other Diabetes mellitus Family history of coronary artery disease Hypertension Social History Social History Social History: one can of soda qd Alcohol intake: current Alcohol use details: occasionally Substance use: former Substance use type: marijuana Other substance usage details: eidbles on occasion Do You Feel Safe in your Home?: Yes Lack of Transportation: No Lack of Food: Never True Current Housing: I Have Housing Concerned About Future Housing: No Difficulty Paying Gas/Electric Bills: Decline to Answer Difficulty Paying for Meds: Decline to Answer Currently Unemployed: No Education: High School Diploma/GED Difficulty w/ Childcare or Family Care: No Living arrangements: with family Gender identity (if verbalized by the patient): Female Spiritual care concerns: No Agree to blood products: Yes Comments At time of signature, I have reviewed and agree with nursing past medical, surgical, social and family history unless otherwise noted. Please see nursing chart for further information. There is no relevant family history pertinent to the presenting complaint Exam Narrative: GENERAL: Well-appearing, well-nourished, and in no acute distress. HEAD: Normocephalic, atraumatic. EYES: EOMI. No redness or drainage. Conjunctivae normal. ENT: Mucous membranes pink and moist. NECK: Normal AROM. At times, range of motion elicits pain in the upper back, but not consistently. Neck is nontender CHEST: No respiratory distress. MUSCULOSKELETAL: No bony tenderness of the spine. Bilateral upper thoracic/trapezius tenderness. EXTREMITIES: Normal range of motion. No edema. Distal sensation intact in all 10 fingers. Capillary refill normal. Radial pulses normal. Hand nurse anesthesia program director equal and strong SKIN: Warm, dry, no rash. Capillary refill normal. Normal skin turgor. NEURO: No focal deficits. Alert and oriented x3. Gait steady. PSYCH: Normal affect. No signs of depression or anxiety. Course Course Level of Care: Express Care Visit Vital Signs Vital signs: Vital Signs Temperature 97.9 F 03/10/25 13:36 Pulse Rate 64 03/10/25 13:36 Respiratory Rate 20 03/10/25 13:36 Blood Pressure 126/79 03/10/25 13:36 Pulse Oximetry 100 03/10/25 13:36 Oxygen Delivery Room Air 03/10/25 13:36 Temperature 97.9 F 03/10/25 13:36 Pulse Rate 64 03/10/25 13:36 Respiratory Rate 20 03/10/25 13:36 Blood Pressure 126/79 03/10/25 13:36 Pulse Oximetry 100 03/10/25 13:36 Oxygen Delivery Room Air 03/10/25 13:36 Reviewed MDM - Back Pain/Injury MDM Narrative Medical decision making narrative: 44-year-old female patient presents today complaining of bilateral upper back pain that started this morning when she was putting some dishes into an overhead cabinet. Pain has been intermittent, but severe when spasm starts. Denies radiation of the pain, numbness or tingling. No OTC treatment prior to arrival. Upon exam,No bony tenderness of the spine. Bilateral upper thoracic/trapezius tenderness. EXTREMITIES: Normal range of motion. No edema. Distal sensation intact in all 10 fingers. Capillary refill normal. Radial pulses normal. Hand nurse anesthesia program director equal and strong. Patient will be started on some cyclobenzaprine for the spasms in her upper back due to muscle strain. She is allergic to aspirin and cannot take NSAIDs due to gastritis concerns. Recommend starting Tylenol and resting the back. Patient agrees with plan. Vital signs stable. Anticipatory guidance given. Differential Diagnosis Differential diagnosis: Likely other (Thoracic back strain, muscle spasm) Critical Care Time Critical Care Time Critical Care Time: No Discharge Plan Discharge Clinical Impression: Spasm of both trapezius muscles Patient Disposition: Home Condition: Stable Instructions: Muscle Spasm (ED) Additional Instructions: Take Tylenol for discomfort. Apply ice for the 1st 24 hours, then switch to heat to help with your discomfort. You may also consider topical lidocaine patches. Take the cyclobenzaprine as directed. Do not drive within 8 hours of taking it as it can make you drowsy. With your PCP in 3 days if symptoms are not improving. As discussed, please go to the ER immediately if symptoms worsen to include numbness or tingling in your arms or hands. Patient Language: Albanian Prescriptions: New cyclobenzaprine 10 mg tablet 10 mg PO TID PRN (Reason: muscle spasm) Qty: 20 0RF No Action Linzess 290 mcg capsule 290 mcg PO DAILY pantoprazole 20 mg tablet,delayed release (DR/EC) 20 mg PO QAM bupropion HCl 300 mg tablet extended release 24 hr PO DAILY Ubrelvy 100 mg tablet PO ONCE Ajovy Autoinjector 225 mg/1.5 mL auto-injector 225 mg subcut MONTHLY buspirone 10 mg tablet 10 mg PO TID Qty: 90 5RF levothyroxine [Synthroid] 150 mcg tablet 150 mcg PO DAILY Qty: 90 1RF cyanocobalamin (vitamin B-12) 1,000 mcg capsule 1,000 mcg PO DAILY Qty: 90 0RF Follow-up/Referrals: Belinda Krishnamurthy MD [Primary Care Provider, Family Practice] Time of Disposition: 14:21
--- OUTSIDE RECORDS SUMMARY | 2025-03-10 20:06 | XMS_ITS | Encounter Summary ---
Author Organization [facility] Address [address] [place] [address] Phone Care Team Providers Care Citrix Systems Administrator Name Role Phone Laith Krishnamurthy MD Primary Care Provider Emy Pepe APRN, LEAN CONSULTANT Unavailable + [phone] Tono Wade MD Unavailable [phone] Reason for Visit * Reason Comments Medication Refill Encounter Details Date Type Department Care Team (Late st Contact Info) Description 12/25/2020 Refill [facility] [address] [address] Tono Wade MD [address] [place] [address] Medication Refill Social History Tobacco [...] Care Team (Late st Contact Info) Description 03/21/2025 11:00 AM DELIMBER OPERATOR Telemedicine [facility] [address] [place] [address] Emy Pepe APRN, LEAN CONSULTANT [address] [place] [address] 06/10/2025 1:00 PM DELIMBER OPERATOR Procedure Visit [facility] [address] [place] [address] Tono Wade MD [address] [place] [address] documented as of this encounter Visit Diagnoses Diagnosis Migraine without aura and without status migrainosus, not intractable Migraine without aura, without mention of intractable migraine without mention of status migrainosus documented in this encounter Care Teams Citrix Systems Administrator Relationship Specialty Start Date End Date Laith Krishnamurthy MD PCP - General Family Medicine 07/04/17 Emy Pepe APRN, LEAN CONSULTANT [address] [place] [address] Nurse Practitioner Advanced Practice Nurse 08/27/22 Tono Wade MD [address] [place] [address] Consulting Physician Neurology 05/28/24 documented as of this encounter
--- OUTSIDE RECORDS SUMMARY | 2025-03-10 20:06 | XMS_ITS | Encounter Summary ---
Author Organization [facility] Address [address] [place] [address] Phone Care Team Providers Care Tape Coater Name Role Phone Laith Krishnamurthy MD Primary Care Provider Emy Pepe APRN, OVERNIGHT CASHIER Unavailable Tono Wade MD Unavailable [phone] Reason for Visit * Reason Comments Medication Refill Encounter Details Date Type Department Care Team (Late st Contact Info) Description 12/24/2022 Refill [facility] - Neurology - [place] [address] [place] [address] Emy Pepe APRN, OVERNIGHT CASHIER [address] [place] [address] Medication Refill Social History Tobacco Use Types [...] Provider Dept 10/11/22 Telemedicine Emy Pepe APRN, OVERNIGHT CASHIER [facility] Neurology [facility] 08/27/22 Office Visit Emy Pepe APRN, [facility] Showing recent visits within past 365 days and meeting all other requirements Future Appointments No visits were found meeting these conditions. Showing future appointments within next 90 days and meeting all other requirements documented in this encounter Plan of Treatment Upcoming Encounters Date Type Department Care Team (Late st Contact Info) Description 03/21/2025 11:00 AM COLOR DEPOSITING MACHINE TENDER Telemedicine [facility] Neurology [facility] [address] [place] [address] Emy Pepe APRN, OVERNIGHT CASHIER [address] [place] [address] 06/10/2025 1:00 PM COLOR DEPOSITING MACHINE TENDER Procedure Visit [facility] Neurology [facility] [address] [place] [address] Tono Wade MD [address] [place] [address] documented as of this encounter Visit Diagnoses Diagnosis Episodic migraine documented in this encounter Care Teams Tape Coater Relationship Specialty Start Date End Date Laith Krishnamurthy MD PCP - General Family Medicine 07/04/17 Emy Pepe APRN, OVERNIGHT CASHIER [address] [place] [address] Nurse Practitioner Advanced Practice Nurse 08/27/22 Tono Wade MD [address] [place] [address] Consulting Physician Neurology 05/28/24 documented as of this encounter
--- OUTSIDE RECORDS SUMMARY | 2025-03-10 20:06 | XMS_ITS | Encounter Summary ---
Author Organization [facility] Address [address] [place] [address] Phone Care Team Providers Care Patcher Helper Name Role Phone Laith Krishnamurthy MD Primary Care Provider Emy Pepe APRN, LINING BASTER Unavailable Tono Wade MD Unavailable [phone] Reason for Visit * Reason Comments Medication Refill Encounter Details Date Type Department Care Team (Late st Contact Info) Description 06/26/2023 Refill [facility] - Neurology - [place] [address] [place] [address] Emy Pepe APRN, LINING BASTER [address] [place] [address] Medication Refill Social History Tobacco Use Types [...] Provider Dept 10/11/22 Telemedicine Emy Pepe APRN, [facility] Neurology [facility] 08/27/22 Office Visit Emy Pepe APRN, [facility] Showing recent visits within past 365 days and meeting all other requirements Future Appointments No visits were found meeting these conditions. Showing future appointments within next 90 days and meeting all other requirements R AND GREASER documented in this encounter Plan of Treatment Upcoming Encounters Date Type Department Care Team (Late st Contact Info) Description 03/21/2025 11:00 AM OILER AND GREASER Telemedicine [facility] [address] [place] [address] Emy Pepe APRN, [facility] [address] [place] [address] 06/10/2025 1:00 PM OILER AND GREASER Procedure Visit [facility] Neurology [facility] [address] [place] [address] Tono Wade MD [address] [place] [address] documented as of this encounter Visit Diagnoses Diagnosis Episodic migraine documented in this encounter Care Teams Patcher Helper Relationship Specialty Start Date End Date Laith Krishnamurthy MD PCP - General Family Medicine 07/04/17 Emy Pepe APRN, LINING BASTER [address] [place] [address] Nurse Practitioner Advanced Practice Nurse 08/27/22 Tono Wade MD [address] [place] [address] Consulting Physician Neurology 05/28/24 documented as of this encounter
--- OUTSIDE RECORDS SUMMARY | 2025-03-10 20:06 | XMS_ITS | Clinical Summary ---
Author Organization [facility] Address [address] [facility] [place] [address] Phone Care Team Providers Care Aerophysicist Name Role Phone Laith Krishnamurthy MD Primary Care Provider Emy Pepe APRN, TECHNICAL ACCOUNT MANAGER Unavailable [phone] Tono Wade MD Unavailable [phone] Allergies Active Allergy Reactions Criticality Noted Date [...] 30 days. 1.68 mL 2 5 Active Hospital, Clinic, or Other Facility Administered Medication Ordered Dose Route Frequency Start Date End Date Status botulinum Toxin Type A (BOTOX) injection 200 UnitsIndications:Chronic migraine without aura without status migrainosus, not intractable 200 Units IJ ONCE 02/25/2025 02/25/2025 Ended Active Problems Problem Noted Date Diagnosed Date Migraine without aura and wi thout status migrainosus, not intractable 04/23/2019 Encounters Date Type Department Care Team Description 02/25/2025 1:00 PM CDT Procedure Visit [facility] Neurology [facility] [address] [place] [address] Emy Pepe APRN, TECHNICAL ACCOUNT MANAGER Tono Wade MD Chronic migraine without aura without status migrainosus, not intractable (Primary Dx) Discharge Disposition: Discharged to home or Selfcare 02/25/2025 Travel 02/24/2025 Telephone [facility] Specialty [address] [place] [address] Emy Pepe APRN, TECHNICAL ACCOUNT MANAGER Prior Authorization 02/23/2025 Telephone [facility] Neurology [facility] [address] [place] [address] Emy Pepe APRN, TECHNICAL ACCOUNT MANAGER 12/30/2024 Telephone [facility] Neurology [facility] [address] [place] [address] Emy Pepe APRN, TECHNICAL ACCOUNT MANAGER from Last 3 Months Family History Medical [...] Comments Blood Pressure 108/70 06/30/2024 3:24 PM WELLNESS CONSULTANT Pulse 58 06/30/2024 3:24 PM WELLNESS CONSULTANT Temperature 36.6 C (97.9 F) 06/30/2024 3:24 PM WELLNESS CONSULTANT Respiratory Rate 16 06/30/2024 3:24 PM WELLNESS CONSULTANT Oxygen Saturation 98% 06/30/2024 3:24 PM WELLNESS CONSULTANT Inhaled Oxygen Concentration - - Weight 84.6 kg (186 lb 6.4 oz) 06/30/2024 3:24 P M WELLNESS CONSULTANT Height 157.5 cm (5' 2) 06/30/2024 3:24 PM WELLNESS CONSULTANT Body Mass Index 34.09 06/30/2024 3:24 PM WELLNESS CONSULTANT Plan of Treatment Upcoming Encounters Date Type Department Care Team (Late st Contact Info) Description 03/21/2025 11:00 AM WELLNESS CONSULTANT Telemedicine [facility] Neurology [facility] [address] [place] [address] Emy Pepe, ROASTER HELPER, TECHNICAL ACCOUNT MANAGER [address] [place] [address] 06/10/2025 1:00 PM WELLNESS CONSULTANT Procedure Visit [facility] Neurology [facility] [address] [place] [address] Tono Wade MD [address] [place] [address] Health Maintenance Due Date Last Done Comments Mammogram 1980 TdaP Immunization 1980 Hepatitis B Immunization (1 of 3 - 19+ 3-dose series) 12/23/1999 Human Papillomavirus (HPV) Immunization (1 - 3-dose SCDM series) 12/23/2007 Discussion re Starting/Frequ ency of Mammograms 2020 Influenza Immunization (#1) 2025 SARS-COV-2 Immunization (2 - season) 2025 07/13/2020 Respiratory Syncytial Virus (RSV) Immunization (Adult) (1 [...] Procedure Name Priority Date/Time Associated Diagnosis Comments CHEMODENERV MUSCLE(S) BILAT FACIAL/TRIGEMINAL/CE RV SPINE Routine 02/25/2025 1:00 PM CDT Chronic migraine without aura without status migrainosus, not intractable from Last 3 Months Results * CHEMODENERV MUSCLE(S) BILAT FACIAL/TRIGEMINAL/CERV SPINE (02/25/2025 1:00 PM CDT) Narrative Tono Wade MD - 02/25/2025 1:00 PM CDT Tono Wade MD 03/02/2025 10:41 PM Nuris presents for administration of botox for treatment of chronic migraines. Frequency of headaches compared to pre-Botox: improved Function since receiving Botox: significantly improved Wasted amount of Botox: 45 Her [...] Patient tolerated the procedure with no complications. us Tono Wade MD [place] - SURGERY Final Result from Last 3 Months Insurance [employer] Care Teams Aerophysicist Relationship Specialty Start Date End Date Laith Krishnamurthy MD PCP - General Family Medicine 07/04/17 Emy Pepe, ROASTER HELPER, TECHNICAL ACCOUNT MANAGER [address] [place] [address] Nurse Practitioner Advanced Practice Nurse 08/27/22 Tono Wade MD [address] [place] [address] Consulting Physician Neurology 05/28/24
--- OUTSIDE RECORDS SUMMARY | 2025-03-10 20:06 | XMS_ITS | Encounter Summary ---
Author Organization [facility] Address [address] [place] [address] Phone Care Team Providers Care Threading Machine Setter Name Role Phone Laith Krishnamurthy MD Primary Care Provider Emy Pepe APRN, ZINC FURNACE CHARGER Unavailable + [phone] Tono Wade MD Unavailable [phone] Reason for Visit * Reason Comments Medication Refill Encounter Details Date Type Department Care Team (Late st Contact Info) Description 06/20/2020 Refill [facility] - [place] [address] [place] [address] Tono Wade MD [address] [place] [address] Medication Refill Social History Tobacco [...] TAKEN AFTER 2 HOURS IF NEEDED. ??? zysbbimgux-zqriszvbvytdn-kqodpqec (FIORICET, ESGIC) 50-325-40 MG Tablet 20 Tablet 0 Sig: Take 1 Tablet by mouth every 4 hours as needed for Migraine. AL APPLICATOR PILOT documented in this encounter Plan of Treatment Upcoming Encounters Date Type Department Care Team (Late st Contact Info) Description 03/21/2025 11:00 AM AERIAL APPLICATOR PILOT Telemedicine [facility] Neurology - [place] [address] [place] [address] Emy Pepe APRN, ZINC FURNACE CHARGER [address] [place] [address] 06/10/2025 1:00 PM AERIAL APPLICATOR PILOT Procedure Visit [facility] Neurology - [place] [address] [place] [address] Tono Wade MD [address] [place] [address] documented as of this encounter Visit Diagnoses Diagnosis Migraine without aura and without status migrainosus, not intractable Migraine without aura, without mention of intractable migraine without mention of status migrainosus documented in this encounter Care Teams Threading Machine Setter Relationship Specialty Start Date End Date Laith Krishnamurthy MD PCP - General Family Medicine 07/04/17 Emy Pepe APRN, ZINC FURNACE CHARGER [address] [place] [address] Nurse Practitioner Advanced Practice Nurse 08/27/22 Tono Wade MD [address] [place] [address] Consulting Physician Neurology 05/28/24 documented as of this encounter
--- OUTSIDE RECORDS SUMMARY | 2025-03-10 20:06 | XMS_ITS ---
Author Organization [facility] Address [address] [place] [address] Care Team Providers Care Manager Outreach Name Role Phone Laith Krishnamurthy MD Primary Care Provider Travis Fuentes DIRECT MARKETING EXECUTIVE Unavailable [phone] Transplant Episode Kidney Potential Donor [facility] [place] Referred on 07/09/2019 Marked as Active on 07/09/2019 Reason: Pending Clinical Review Kidney CoordinatorAco Ej Pink MD Fax: N/A Email: N/A Care Team Name Role Phone Fax Email Aco Ej Pink MD Kidney Coordinator N/A N/A Events Pre-Donation Referred: 07/09/2019
--- OUTSIDE RECORDS SUMMARY | 2025-03-10 20:06 | XMS_ITS | Encounter Summary ---
Author Organization [facility] Address [address] [place] [address] Phone Care Team Providers Care Finance Insurance Manager Name Role Phone Laith Krishnamurthy MD Primary Care Provider Emy Pepe APRN, FINANCIAL SERVICES SALES REPRESENTATIVE Unavailable + [phone] Tono Wade MD Unavailable [phone] Reason for Visit * Reason Comments Medication Refill Encounter Details Date Type Department Care Team (Late st Contact Info) Description 04/25/2020 Refill [facility] Neurology [facility] [address] [place] [address] Tono Wade MD [address] [place] [address] Medication Refill Social History Tobacco [...] Department Care Team (Late Contact Info) Description 03/21/2025 11:00 AM AIRCRAFT ENGINE MECHANIC SUPERVISOR Telemedicine [facility] Neurology [facility] [address] [facility] [address] Emy Pepe APRN, FINANCIAL SERVICES SALES REPRESENTATIVE [address] [place] [address] 06/10/2025 1:00 PM AIRCRAFT ENGINE MECHANIC SUPERVISOR Procedure Visit [facility] [address] [place] [address] Tono Wade MD [address] [place] [address] documented as of this encounter Visit Diagnoses Diagnosis Migraine without aura and without status migrainosus, not intractable Migraine without aura, without mention of intractable migraine without mention of status migrainosus documented in this encounter Care Teams Finance Insurance Manager Relationship Specialty Start Date End Date Laith Krishnamurthy MD PCP - General Family Medicine 07/04/17 Emy Pepe APRN, FINANCIAL SERVICES SALES REPRESENTATIVE [address] [place] [address] Nurse Practitioner Advanced Practice Nurse 08/27/22 Tono Wade MD [address] [place] [address] Consulting Physician Neurology 05/28/24 documented as of this encounter
--- OUTSIDE RECORDS SUMMARY | 2025-03-10 20:06 | XMS_ITS | Encounter Summary ---
Author Organization [facility] Address [address] [place] [address] Phone Care Team Providers Care Stage Technician Name Role Phone Laith Krishnamurthy MD Primary Care Provider Emy Pepe APRN, METALLURGY TEACHER Unavailable Tono Wade MD Unavailable [phone] Reason for Visit * Reason Comments Medication Refill Encounter Details Date Type Department Care Team (Late st Contact Info) Description 03/05/2023 Refill [facility] - [place] [address] [place] [address] Emy Pepe APRN, METALLURGY TEACHER [address] [place] [address] Medication Refill Social History Tobacco Use Types [...] Provider Dept 10/11/22 Telemedicine Emy Pepe APRN, [facility] Neurology [facility] 08/27/22 Office Visit Emy Pepe APRN, [facility] Showing recent visits within past 365 [...] Provider Dept 10/11/22 Telemedicine Emy Pepe APRN, [facility] 08/27/22 Office Visit Emy Pepe APRN, [facility] Showing recent visits within past 365 days and meeting all other requirements Future Appointments No visits were found meeting these conditions. Showing future appointments within next 90 days and meeting all other requirements documented in this encounter Plan of Treatment Upcoming Encounters Date Type Department Care Team (Late st Contact Info) Description 03/21/2025 11:00 AM STAFFING OPERATIONS MANAGER Telemedicine [facility] - Neurology - [place] [address] [place] [address] Emy Pepe APRN, METALLURGY TEACHER [address] [place] [address] 06/10/2025 1:00 PM STAFFING OPERATIONS MANAGER Procedure Visit [facility] [address] [place] [address] Tono Wade MD [address] [place] [address] documented as of this encounter Visit Diagnoses Diagnosis Episodic migraine documented in this encounter Care Teams Stage Technician Relationship Specialty Start Date End Date Laith Krishnamurthy MD PCP - General Family Medicine 07/04/17 Emy Pepe APRN, METALLURGY TEACHER [address] [place] [address] Nurse Practitioner Advanced Practice Nurse 08/27/22 Tono Wade MD [address] [place] [address] Consulting Physician Neurology 05/28/24 documented as of this encounter
--- OUTSIDE RECORDS SUMMARY | 2025-03-10 20:06 | XMS_ITS | Encounter Summary ---
Author Organization [facility] Address [address] [place] [address] Phone Care Team Providers Care Asphalt Paving Superintendent Name Role Phone Laith Krishnamurthy MD Primary Care Provider Emy Pepe APRN, DIRECTOR OF QUALITY Unavailable Tono Wade MD Unavailable [phone] Reason for Visit * Reason Comments Medication Refill Encounter Details Date Type Department Care Team (Late st Contact Info) Description 07/08/2023 Refill [facility] - Neurology - [place] [address] [place] [address] Emy Pepe APRN, DIRECTOR OF QUALITY [address] [place] [address] Medication Refill Social History Tobacco Use Types [...] Provider Dept 10/11/22 Telemedicine Emy Pepe APRN, DIRECTOR OF QUALITY [facility] 08/27/22 Office Visit Emy Pepe APRN, [facility] Showing recent visits within past 365 days and meeting all other requirements Future Appointments No visits were found meeting these conditions. Showing future appointments within next 90 days and meeting all other requirements R INSTRUCTOR documented in this encounter Plan of Treatment Upcoming Encounters Date Type Department Care Team (Late st Contact Info) Description 03/21/2025 11:00 AM CYBER INSTRUCTOR Telemedicine [facility] [address] [place] [address] Emy Pepe APRN, DIRECTOR OF QUALITY [address] [place] [address] 06/10/2025 1:00 PM CYBER INSTRUCTOR Procedure Visit [facility] [address] [place] [address] Tono Wade MD [address] [place] [address] documented as of this encounter Visit Diagnoses Diagnosis Episodic migraine documented in this encounter Care Teams Asphalt Paving Superintendent Relationship Specialty Start Date End Date Laith Krishnamurthy MD PCP - General Family Medicine 07/04/17 Emy Pepe APRN, DIRECTOR OF QUALITY [address] [place] [address] Nurse Practitioner Advanced Practice Nurse 08/27/22 Tono Wade MD [address] [place] [address] Consulting Physician Neurology 05/28/24 documented as of this encounter
--- OUTSIDE RECORDS SUMMARY | 2025-03-10 20:06 | XMS_ITS | Encounter Summary ---
Author Organization [facility] Address [address] [place] [address] Phone Care Team Providers Care Windows System Admin Name Role Phone Laith Krishnamurthy MD Primary Care Provider Emy Pepe APRN, RUBBER LINER Unavailable + [phone] Tono Wade MD Unavailable [phone] Reason for Visit * Reason Onset Date Comments Prior Authorization 02/24/2025 Encounter Details Date Type Department Care Team (Late st Contact Info) Description 02/24/2025 Telephone [facility] Specialty [address] [place] [address] Emy Pepe, STEPHANIA, RUBBER LINER [address] [place] [address] Prior Authorization Social History Tobacco Use Types Packs/Day Years [...] encounter Miscellaneous Notes * Telephone Encounter - RituAdanrahcel Gorman - 02/24/2025 10:40 AM CDT I contacted the life insurance underwriter and spoke with Ronn Hdz at [facility] (phone number: [phone]). He informed me that the matter is still pending and has been marked as urgent. documented in this encounter Plan of Treatment Upcoming Encounters Date Type Department Care Team (Late st Contact Info) Description 03/21/2025 11:00 AM COUNTRY PRINTER APPRENTICE Telemedicine [facility] Neurology [facility] [address] [facility] [place] [address] Emy Pepe APRN, RUBBER LINER [address] [place] [address] 06/10/2025 1:00 PM COUNTRY PRINTER APPRENTICE Procedure Visit [facility] [address] [facility] [place] [address] Tono Wade MD [address] [place] [address] documented as of this encounter Visit Diagnoses Not on filedocumented in this encounter Care Teams Windows System Admin Relationship Specialty Start Date End Date Laith Krishnamurthy MD PCP - General Family Medicine 07/04/17 Emy Pepe APRN, RUBBER LINER [address] [place] [address] Nurse Practitioner Advanced Practice Nurse 08/27/22 Tono Wade MD [address] [place] [address] Consulting Physician Neurology 05/28/24 documented as of this encounter
--- OUTSIDE RECORDS SUMMARY | 2025-03-10 20:06 | XMS_ITS | Data Portability ---
Author Organization [facility] [place] Address [address] [place] [address] Care Team Providers Care Brim Pouncer Name Role Phone CHRISTINA AMEZCUA Primary Care Provider Assessment Encounter Date Assessment Date Assessment LastModified by Organization Details LastModified Time 06/09/2023 06/09/2023 Annual gynecological exam performed. Patient will come back in a year unless there are new symptoms. Not available 06/09/2023 11:25:52 06/21/2024 06/21/2024 Annual gynecological exam performed. Patient will come back in a year unless there are new symptoms. [email or web address] Not available 06/11/2024 11:52:06 Plan of Treatment Reminders Order Date Submit Date Provider Last Modified By Organization Details Last Modified Time Details Appointments None recorded. Lab CBC w/ auto diff 2024 025 [facility] (Lab), [address], [place], [address], 23:54:52 CMP, serum or plasma 2024 025 [facility] (Lab), [address], [place], [address], 5 23:54:53 lipid panel, blood 2024 025 [facility] (Lab), [address], [place], [address], 5 23:54:53 TSH, serum or plasma 2024 025 [facility] (Lab), [address] [facility], [place], [address], 5 23:54:52 HbA1c (hemoglobin A1c), blood 2024 025 [facility] (Lab), [address] [facility], [place], [address], 5 23:54:55 pap, IG + HR HPV - HPV regardless but if HPV is positive need subtyping 16,18/[address]/GC/Trich 2024 025 [facility] (Lab), [address] [facility], [place], [address], 5 23:54:54 HBsAg (hepatitis B surface Ag), serum 2024 025 [facility] (Lab), [address] [facility], [place], [address], 5 23:54:51 Referral None recorded. Procedures None recorded. Surgeries None recorded. Imaging MAMMO, diagnostic, digital, bilateral 2024 025 [facility], [address], [place], [address], 5 13:19:57 US, pelvis 2023 024 [email or web address] [place], [address], [address], [place], [address], 4 13:09:39 US, transvagina l 2023 024 [email or web address] [place], [address], [place], [address], 4 13:09:39 Medication Orders estradiol 2 mg tablet 2024 025 [email or web address] [facility] #[id number], [address] [place], [address], 5 15:56:49 estradiol 1 mg tablet 2023 024 [email or web address] [facility] #[id number], [address] [place], [address], 4 09:11:03 Patient TargetsNo targets recorded. Patient [...] nce of HIV infec tion. Not Available [facility] (Lab) [address], [place], [address], 06/13/2023 13:38:13 06/09/19 24 06/09/2023 HEPAT ITIS B SURFA CE ANTIG EN hepatitis B surface antigen Non-re active non-re active This assay was perfo rmed using [employer] ratio n reage nts and test kits. Value s obtai eddie with other assay metho ds or kits canno t be used inter hoyt eably . Not Available [facility] (Lab) [address], [place], [address], 06/13/2023 13:38:14 06/09/1906/09/2023 HEPAT ITIS C ANTIB MATT SCREE N, REFLE X TO CONFI RMATI ON hepatitis C antibody Non-re active non-re active Antib odies to HCV Not Detec ze, does not exclu de the possi bilit y of expos ure to HCV. Not Available [facility] (Lab) [address] [place], [address], 06/13/2023 13:38:14 06/09/19 24 06/09/2023 HERPE S SIMPL EX VIRUS TYPE 2 SPECI FIC AB, IGG herpes simplex virus 2 IgG Negati ve negati ve Not Available [facility] (Lab) [address] [place], [address], 06/13/2023 13:38:14 06/09/19 24 06/09/2023 HERPE S SIMPL EX VIRUS TYPE 2 SPECI FIC AB, IGG herpes simples virus 2 IgG, quant <0.2 ai 0.0-0. 8 Not Available [facility] (Lab) [address] [place], [address], 06/13/2023 13:38:14 06/09/19 24 06/09/2023 RPR SCREE N, REFLE X TITER /CONF IRMAT ION RPR screen Nonrea ctive nonrea ctive Not Available [facility] (Lab) [address] [place], [address], 06/13/2023 13:38:15 06/09/19 24 06/09/2023 IMAGE GUIDE D PAP AND HPV REGAR DLESS image guided Pap, HPV regardless of Pap result SEE RESULT S BELOW abnormal CASE REPOR T: Cytol ogy Gynec ologi chandler Repor t Case: [id number] Autho radha g Provi catia: Vitaliy Ray MD Colle cted: 06/09 1355 Order ing Locat ion: [place] Patho logy Recei shakir: 06/10 1005 First Scree n: Nacha mpass ak, Sivil ay, CT Rescr een: DeLuc a, Lynn, CT Speci men: Scree jailene Pap - Image d, Vagin a STATE MENT OF ADEQU ACY: Satis facto ry for evalu ation FINAL DIAGN OSIS: Negat shonda for Intra epith elial Lesio n or Malig lanre (NIL) . Shift in dedrick sugge stive of bacte rial vagin osis. Elect ronblu mcneal by Lynn Johnson CT on 024 at 6:57 PM ----- ----- [...] Neopl kathleen (if appli cable ): Signi gilda t Clini chandler Findi ngs: Other [...] as clini thais nichols nted. Not Available [facility] (Lab) [address] [facility], [place], [address], 06/13/2023 13:38:15 06/09/19 24 06/09/2023 CT/GC (MARYSOL) , THINP REP VIAL chlamydia trachomatis, PCR Negati ve negati ve Not Available [facility] (Lab) [address] [facility], [place], [address], 06/13/2023 13:38:16 06/09/19 24 06/09/2023 CT/GC (MARYSOL) , THINP REP VIAL neisseria gonorrhoeae, PCR Negati ve negati ve Not Available [facility] (Lab) [address] [facility], [place], [address], 06/13/2023 13:38:16 06/09/19 24 06/09/2023 TRICH OMONA S VAGIN LUZ (RRNA ) trichomonas vaginalis ribosomal RNA (rrna) Negati ve negati ve Not Available [facility] (Lab) [address] [place], [address], 06/13/2023 13:38:17 06/09/19 24 06/09/2023 HEPAT ITIS B CORE, IGM hepatitis B core IgM antibody Negati ve negati ve Not Available [facility] (Lab) [address] [place], [address], 06/13/2023 13:38:17 07/17/19 24 07/17/2023 SURGI CAHNDLER PATHO LOGY surgical pathology SEE RESULT S [...] dyspl kathleen ident ified . Elect nirmala mcneal by Regina Briscoe MD on 2023 at 11:50 AM ----- ----- ----- ----- ----- ----- ----- ----- ----- ----- ----- ----- ----- ----- ----- ----- ----- ---- LIEN NT: The [facility] Pap smear is appre rico mcneal ([id number]). CLINI CHANDLER INFOR MATIO N: R87.8 11 MICRO SCOPI C DESCR IPTIO N: A micro scopi c exami natio n was perfo rmed. GROSS DESCR IPTIO N: A. Vagin al Cuff. The speci men is label ed with the patie nt's name, demog raphi cs and vagin al cuff BX. Recei shakir in forma claudia is a 0.5 cm piece of white -fabian tissu e. The entir e speci men is submi tted in one casse tte. Gross ed by Josh Munroe Vagin al Cuff. The speci men is label ed with the patie nt's name, lauro naik and vagin al cuff BX 2. Recei shakir in forma claudia is a 0.5 cm piece of white -fabian tissu e. The entir e speci men is submi tted in one casse tte. Gross ed by Josh bowens Not Available [facility] (Lab) [address], [place], [address], 07/18/2023 12:52:47 06/21/1906/21/2024 HBSAG /HCV/ HIV/R GA HIV antigen/anti body Nonrea ctive nonrea ctive HIV-1 antig en and HIV-1 /HIV- 2 antib odies were not detec ze. No labor atory evide nce of HIV infec tion. Not Available [facility] (Lab) [address], [place], [address], 06/27/2024 23:54:51 06/21/1906/21/2024 HBSAG /HCV/ HIV/R GA hepatitis B surface antigen Non-re active non-re active This assay was perfo rmed using [employer] ratio n reage nts and test kits. Value s obtai eddie with other assay metho ds or kits canno t be used inter hoyt eably . Not Available [facility] (Lab) [address], [place], [address], 06/27/2024 23:54:51 06/21/1906/21/2024 HBSAG /HCV/ HIV/R GA hepatitis C antibody Non-re active non-re active Antib odies to HCV Not Detec ze, does not exclu de the possi bilit y of expos ure to HCV. Not Available [facility] (Lab) [address], [place], [address], 06/27/2024 23:54:51 06/21/19 25 06/21/2024 HBSAG /HCV/ HIV/R GA RPR screen Nonrea ctive nonrea ctive Not Available [facility] (Lab) [address], [place], [address], 06/27/2024 23:54:51 06/21/19 25 06/21/2024 CBC W/DIF F WBC 6.6 10'3/ uL 3.5-10 .5 Not Available [facility] (Lab) [address], [place], [address], 06/27/2024 23:54:52 06/21/19 25 06/21/2024 CBC W/DIF F RBC 4.18 10'6/ uL (based on docume nted legal sex) 3.80-5 .20 Not Available [facility] (Lab) [address], [place], [address], 06/27/2024 23:54:52 06/21/19 25 06/21/2024 CBC W/DIF F HGB 11.6 g/dL (based on docume nted legal sex) 11.6-1 5.4 Not Available [facility] (Lab) [address], [place], [address], 06/27/2024 23:54:52 06/21/19 25 06/21/2024 CBC W/DIF F HCT 36.3 % (based on docume nted legal sex) 34.0-4 5.0 Not Available [facility] (Lab) [address], [place], [address], 06/27/2024 23:54:52 06/21/19 25 06/21/2024 CBC W/DIF F MCV 86.8 fL 80.0-9 9.0 Not Available [facility] (Lab) [address], [place], [address], 06/27/2024 23:54:52 06/21/19 25 06/21/2024 CBC W/DIF F MCH 27.8 pg 27.0-3 4.0 Not Available [facility] (Lab) [address] [facility], [place], [address], 06/27/2024 23:54:52 06/21/19 25 06/21/2024 CBC W/DIF F MCHC 32.0 g/dL 32.0-3 5.5 Not Available [facility] (Lab) [address] [facility], [place], [address], 06/27/2024 23:54:52 06/21/19 25 06/21/2024 CBC W/DIF F RDW 12.8 % 11.0-1 5.0 Not Available [facility] (Lab) [address] [facility], [place], [address], 06/27/2024 23:54:52 06/21/19 25 06/21/2024 CBC W/DIF F plt 310 10'3/ uL 150-40 0 Not Available [facility] (Lab) [address] [facility], [place], [address], 06/27/2024 23:54:52 06/21/19 25 06/21/2024 CBC W/DIF F MPV 10.9 fL 8.8-12 .1 Not Available [facility] (Lab) [address] [facility], [place], [address], 06/27/2024 23:54:52 06/21/19 25 06/21/2024 CBC W/DIF F neutrophils 57.7 % 34.0-7 3.0 Not Available [facility] (Lab) [address] [facility], [place], [address], 06/27/2024 23:54:52 06/21/19 25 06/21/2024 CBC W/DIF F lymphocytes 29.7 % 15.0-5 0.0 Not Available [facility] (Lab) [address] [facility], [place], [address], 06/27/2024 23:54:52 06/21/19 25 06/21/2024 CBC W/DIF F monocytes 7.1 % 1.0-15 .0 Not Available [facility] (Lab) [address] [facility], [place], [address], 06/27/2024 23:54:52 06/21/19 25 06/21/2024 CBC W/DIF F eosinophils 4.6 % 0.0-8. 0 Not Available [facility] (Lab) [address] [facility], [place], [address], 06/27/2024 23:54:52 06/21/19 25 06/21/2024 CBC W/DIF F basophils 0.6 % 0.0-2. 0 Not Available [facility] (Lab) [address] [facility], [place], [address], 06/27/2024 23:54:52 06/21/19 25 06/21/2024 CBC W/DIF [...] separ ately if prese nt. Not Available [facility] (Lab) [address] [facility], [place], [address], 06/27/2024 23:54:52 06/21/19 25 06/21/2024 CBC W/DIF F absolute neutrophils 3.8 10'3/ uL 1.5-8. 0 Not Available [facility] (Lab) [address] [facility], [place], [address], 06/27/2024 23:54:52 06/21/19 25 06/21/2024 CBC W/DIF F absolute lymphocytes 2.0 10'3/ uL 1.0-4. 0 Not Available [facility] (Lab) [address] [facility], [place], [address], 06/27/2024 23:54:52 06/21/19 25 06/21/2024 CBC W/DIF F absolute monocytes 0.5 10'3/ uL 0.2-1. 0 Not Available [facility] (Lab) [address] [facility], [place], [address], 06/27/2024 23:54:52 06/21/19 25 06/21/2024 CBC W/DIF F absolute eosinophils 0.3 10'3/ uL 0.0-0. 6 Not Available [facility] (Lab) [address] [facility], [place], [address], 06/27/2024 23:54:52 06/21/19 25 06/21/2024 CBC W/DIF F absolute basophils 0.0 10'3/ uL 0.0-0. 3 Not Available [facility] (Lab) [address] [facility], [place], [address], 06/27/2024 23:54:52 06/21/1906/21/2024 CBC W/DIF F absolute immature granulocytes 0.0 10'3/ uL 0.00-0 .10 : Routi ne : ENDOC ERVIC AL/CE RVICA L Colle cted by offic e staff . Refer ence range s for nonbi nary/ inter sex or unspe cifie d gende r patie nts have not been estab lishe d. Pavel e refer [facility] for range s estab lishe d for cisge nder patie nts and evalu ate in the clini chandler manuel xt of the indiv idual patie nt: https ://blue marquis book. nm.or g/gen derx Not Available [facility] (Lab) [address] [facility], [place], [address], 06/27/2024 23:54:52 06/21/1906/21/2024 T4 FREE T4, free 0.69 NG/dL 0.60-1 .40 This assay is susce ptibl e to inter feren ce from high level s of bioti n which may false ly eleva te resul ts. Pleas e corre late with clini chandler findi ngs. : Routi ne : ENDOC ERVIC AL/CE RVICA L Colle cted by offic e staff . Not Available [facility] (Lab) [address] [facility], [place], [address], 06/27/2024 23:54:52 06/21/19 25 06/21/2024 TSH, REFLE X FREE T4 TSH 8.76 uIU/m L 0.30-5 .33 high : Routi ne : ENDOC ERVIC AL/CE RVICA L Colle cted by offic e staff . Not Available [facility] (Lab) [address] [place], [address], 06/27/2024 23:54:52 06/21/19 25 06/21/2024 LIPID PANEL ,AMA (LDL- CALC) total cholesterol 200 mg/dL 0-199 high Not Available [facility] (Lab) [address] [place], [address], 06/27/2024 23:54:53 06/21/19 25 06/21/2024 LIPID PANEL ,AMA (LDL- CALC) triglyceride s 160 mg/dL 0-150 high NCEP Refer ence Value s for Trigl yceri kimberly: Janey l: <150 mg/dL Borde rline High: 150 - 199 mg/dL High: 200 - 499 mg/dL Very High: >/= 500 mg/dL Not Available [facility] (Lab) [address] [place], [address], 06/27/2024 23:54:53 06/21/19 25 06/21/2024 LIPID PANEL ,AMA (LDL- CALC) HDL cholesterol 56 mg/dL >40 Not Available [facility] (Lab) [address] [place], [address], 06/27/2024 23:54:53 06/21/19 25 06/21/2024 LIPID PANEL [...] mg/dL , HDL <40 mg/dL Not Available [facility] (Lab) [address] [facility], [place], [address], 06/27/2024 23:54:53 06/21/1906/21/2024 LIPID PANEL ,AMA (LDL- CALC) non-HDL cholesterol 144 mg/dL no refere nce range A reaso nable goal for non-H DL elaine stero l is one that is 30 mg/dL highe r than the LDL elaine stero l goal. Not Available [facility] (Lab) [address] [facility], [place], [address], 06/27/2024 23:54:53 06/21/1906/21/2024 LIPID PANEL ,AMA (LDL- CALC) chol/HDL ratio 3.6 . 0.0-5. 0 : Routi ne : ENDOC ERVIC AL/CE RVICA L Colle cted by offic e staff . On August 27, 2022, [facility] labor atori claudia hoyt ed the equat ion for calcu latin g estim ated low-d ensit y lipop rotei n-cho leste rol (LDL- C) from the Óscar sommerald equat ion to the Augusta jacob/Richard flynn equat ion. This new equat ion is only valid for lipid panel s with trigl yceri kimberly < 400 mg/dL . Apoloniai es adarsh vigil ed that this new equat ion will impro ve the accur acy of LDL-C , espec ially in scena aiken when LDL-C froy ntrat ions are relat ively low (< 100 mg/dL ), trigl yceri kimberly are eleva ze, or patie nt is non-f astin g. Refer ences : - Augusta jacob, Harley Barnes, Michael Burrows , Ramesh natarajan, Isidoro Lui, Emiliano Shaferer S. Blume nthal , and Augustin Duke . 2013. Comp ariso n of a Novel Metho d vs the Fried behzad Equat ion for Estim ating Low-D ensit y Lipop rotei n Elaine stero l Level s from the Stand judy Lipid Profmyah mendenhall. ESMER: The Journ al of the Ameri can Medic al Assoc iatio n 310 (19): 2060- . - Edy meier V, Tawana J, Jimmy meier A, Houng M, Anand frausto R, Chalino meier E, Sugey draper RS, Srikanth SR, Augusta jacob SS. Fast ing Versu s Nonfa sting and Low-D ensit y Lipop rotei n Elaine stero l Accur acy. Circu latio n. 2017May 06;137 (1):1 0-19. Not Available [facility] (Lab) [address] [place], [address], 06/27/2024 23:54:53 06/21/19 25 06/21/2024 CMP(C OMPRE HENSI VE METAB OLIC PANEL ) sodium 139 mmol/ L 133-14 6 Not Available [facility] (Lab) [address] [place], [address], 06/27/2024 23:54:53 06/21/19 25 06/21/2024 CMP(C OMPRE HENSI VE METAB OLIC PANEL ) potassium 4.2 mmol/ L 3.5-5. 1 Not Available [facility] (Lab) [address] [place], [address], 06/27/2024 23:54:53 06/21/19 25 06/21/2024 CMP(C OMPRE HENSI VE METAB OLIC PANEL ) chloride 104 mmol/ L 98-107 Not Available [facility] (Lab) [address] [place], [address], 06/27/2024 23:54:53 06/21/19 25 06/21/2024 CMP(C OMPRE HENSI VE METAB OLIC PANEL ) carbon dioxide 28 mmol/ L 21-31 Not Available [facility] (Lab) [address] [facility], [place], [address], 06/27/2024 23:54:53 06/21/19 25 06/21/2024 CMP(C OMPRE HENSI VE METAB OLIC PANEL ) anion gap 7 mmol/ L 4-13 Not Available [facility] (Lab) [address] [facility], [place], [address], 06/27/2024 23:54:53 06/21/19 25 06/21/2024 CMP(C OMPRE HENSI VE METAB OLIC PANEL ) blood urea nitrogen 9 mg/dL 7-25 Not Available [facility] (Lab) [address] [facility], [place], [address], 06/27/2024 23:54:53 06/21/19 25 06/21/2024 CMP(C OMPRE HENSI VE METAB OLIC PANEL ) creatinine 0.60 mg/dL 0.60-1 .30 Not Available [facility] (Lab) [address] [facility], [place], [address], 06/27/2024 23:54:53 06/21/19 25 06/21/2024 CMP(C OMPRE HENSI VE METAB OLIC PANEL ) egfrcr (CKD-epi 2020) >90 mL/mi n/1.7 3_m2 >=60 Not Available [facility] (Lab) [address] [facility], [place], [address], 06/27/2024 23:54:53 06/21/19 25 06/21/2024 CMP(C OMPRE HENSI VE METAB OLIC PANEL ) calcium 10.6 mg/dL 8.3-10 .5 high Not Available [facility] (Lab) [address] [facility], [place], [address], 06/27/2024 23:54:53 06/21/19 25 06/21/2024 CMP(C OMPRE HENSI VE METAB OLIC PANEL ) glucose 82 mg/dL 70-100 Not Available [facility] (Lab) [address] [facility], [place], [address], 06/27/2024 23:54:53 06/21/19 25 06/21/2024 CMP(C OMPRE HENSI VE METAB OLIC PANEL ) protein, total 7.2 g/dL 6.4-8. 3 Not Available [facility] (Lab) [address] [facility], [place], [address], 06/27/2024 23:54:53 06/21/19 25 06/21/2024 CMP(C OMPRE HENSI VE METAB OLIC PANEL ) albumin 4.3 g/dL 3.5-5. 0 Not Available [facility] (Lab) [address] [facility], [place], [address], 06/27/2024 23:54:53 06/21/19 25 06/21/2024 CMP(C OMPRE HENSI VE METAB OLIC PANEL ) ALT 11 units /L 9-43 Not Available [facility] (Lab) [address] [facility], [place], [address], 06/27/2024 23:54:53 06/21/19 25 06/21/2024 CMP(C OMPRE HENSI VE METAB OLIC PANEL ) alkaline phosphatase 69 units /L 34-104 Not Available [facility] (Lab) [address] [facility], [place], [address], 06/27/2024 23:54:53 06/21/19 25 06/21/2024 CMP(C OMPRE HENSI VE METAB OLIC PANEL ) AST 13 units /L 13-39 Not Available [facility] (Lab) [address] [facility], [place], [address], 06/27/2024 23:54:53 06/21/19 25 06/21/2024 CMP(C OMPRE HENSI VE METAB OLIC PANEL ) bilirubin, total 0.3 mg/dL 0.2-1. 2 : Routi ne : ENDOC ERVIC AL/CE RVICA L Colle cted by offic e staff . Not Available [facility] (Lab) [address], [place], [address], 06/27/2024 23:54:53 06/21/19 25 06/21/2024 IMAGE GUIDE D PAP AND HPV REGAR DLESS image guided Pap, HPV regardless of Pap result SEE RESULT S BELOW CASE REPOR T: Cytol ogy Gynec ologi chandler Repor t Case: [id number] Autho radha g Provi catia: Dermo dy, Sydni , ANP, [employer] Colle cted: 06/21 1518 Order ing Locat ion: [place] Patho logy Recei shakir: 06/22 0834 First Scree n: Maryam erwin, Ramesh nogueira, CT Rescr een: Marquita Duke, CT Speci men: Scree jailene Pap - Image d, Cervi x STATE [...] elial Andre jacob or Kanu de dios ([facility]) . Elect nirmala choi d by Marquita Duke , CT on 2024 at 0920 EQUINE DENTIST ----- ----- ----- ----- ----- ----- ----- [...] is recom jakob d, as clini thais warrjoan nted. Not Available [facility] (Lab) [address], [place], [address], 06/27/2024 23:54:54 06/21/19 25 06/21/2024 TRICH OMONA S VAGIN LUZ (RRNA ) trichomonas vaginalis ribosomal RNA (rrna) Negati ve negati ve Not Available [facility] (Lab) [address] [place], [address], 06/27/2024 23:54:54 06/21/19 25 06/21/2024 HEMOG LOBIN [...] Goal of thera py >8.0% Actio n sawge sted Not Available [facility] (Lab) [address] [facility], [place], [address], 06/27/2024 23:54:55 06/21/19 25 06/21/2024 CT/GC (MARYSOL) , THINP REP VIAL chlamydia trachomatis, PCR Negati ve negati ve Not Available [facility] (Lab) [address], [place], [address], 06/27/2024 23:54:55 06/21/19 25 06/21/2024 CT/GC (MARYSOL) , THINP REP VIAL neisseria gonorrhoeae, PCR Negati ve negati ve Not Available [facility] (Lab) [address], [place], [address], 06/27/2024 23:54:55 05/30/19 24 05/30/2023 US, pelvi s No observ ation record ed. [email or web address] Melonie [address], [place], [address], 05/31/2023 22:12:58 05/30/19 24 05/30/2023 US, pelvi s No observ ation record ed. [facility] [address], [place], [address], 05/30/2023 15:29:57 05/30/19 24 05/30/2023 US, trans vagin al No observ ation record ed. raul [place] [address], [place], [address], 05/30/2023 15:30:11 07/14/19 25 07/13/2024 MAMMO , diagn ostic , digit al, bilat eral No observ ation record ed. GREG [facility] [address], [place], [address], 07/13/2024 14:28:53 Result Notes None recorded. Procedures Surgical History Date Name Laterality Status Provider Name and Address Organization Details Recorded Time 024 Colposcopy completed Girish Ray MD [address], [place], [address], [facility] 07/17/2023 14:55:55 024 Colposcopy completed Miriam Andrea [facility] 07/17/2023 14:29:34 024 Colposcopy completed Miriam Andrea [facility] 07/17/2023 14:30:00 024 Date of Last Mammogram completed Miriam Andrea [facility] 07/17/2023 14:12:51 024 Date of Last Pap Smear completed Yamilet Genao [facility] 06/18/2023 15:17:02 023 Colonoscopy completed Miriam Andrea [facility] 07/23/2023 08:56:38 021 Caesarean Section completed Miriam Andrea [facility] 07/23/2023 08:56:54 019 Bariatric Surgery completed Miriam Andrea [facility] 07/23/2023 08:55:19 014 Total Hysterectomy completed Yamilet Genao [facility] 06/09/2023 11:35:39 013 Cholecystectomy completed Miriambruno Andrea [facility] 07/23/2023 08:56:46 010 procedure on neck completed Miriambruno Andrea [facility] 07/23/2023 08:55:46 003 [facility] 07/23/2023 08:57:33 003 Tubal Ligation completed Miriambruno Andrea [facility] 07/23/2023 08:56:30 Imaging Results None recorded. Procedure Notes None recorded. Medical Equipment None Reported. Allergies Allergen ID Allergen Name Allergen Category Reaction Reaction Severity Criticality Documentation Date Start Date Code Code System Note Provider Name and Address Organization Details Recorded Time 77791 aspirin medicatio n anaphylax is hives Not available Not available Not available 04/21/2020 1191 RxNorm Comme nt: [facility]at [facility]; Not Available [facility] 0 14:24:30 39870 ibuprofen medicatio n abdominal pain severe Not available 07/17/2023 5640 RxNorm Miriam Andrea [facility], [facility] 4 14:13:05 Medications Name Sig Start [...] oral route every day 07/16 completed Prescrib mirlande frausto: Yes Loca tion: [facility] odisreal By: nena castellon DateTime : 10/15/19 19 [...] Prescrib ed Elsewher e: Yes Loca tion: [facility] odify By: nena castellon DateTime : 10/15/19 02:00:00 PM Not Available [...] Prescrib ed Elsewher e: Yes Loca tion: [facility] odify By: nena castellon DateTime : 10/15/19 02:00:00 PM Not Available [...] Body mass index (BMI) Body weight Systolic And Diastolic Provider Name and Address Organization Details Last Updated DateTime 05/30/2023 157.48 cm 30 kg/m2 49631.15 g 112/73 mm[Hg] [facility] 05/30/2023 10:52:18 Date Recorded Body height Body mass index (BMI) Body weight Systolic And Diastolic Provider Name and Address Organization Details Last Updated DateTime 06/09/2023 157.48 cm 29.8 kg/m2 65927.56 g 111/71 mm[Hg] [facility] 06/09/2023 11:35:02 Date Recorded Body height Body mass index (BMI) Body weight Systolic And Diastolic Provider Name and Address Organization Details Last Updated DateTime 06/21/2024 157.48 cm 34.2 kg/m2 57597.49 g 114/74 mm[Hg] Griselda Wagner [facility] 06/21/2024 15:27:59 Date Recorded Body height Body mass index (BMI) Body weight Systolic And Diastolic Provider Name and Address Organization Details Last Updated DateTime 07/17/2023 157.48 cm 28 kg/m2 90837.63 g 135/80 mm[Hg] Miriam Andrea [facility] 07/17/2023 14:12:25 Social History Question Answer Notes LastModified by Organizat ion Details LastModified Time Tobacco Smoking Status Never Smoker Yamilet Birgit geiger, [facility] 05/30/2023 10:54:41 Are You Blind Or Do You Have Difficulty Seeing? No Information n ot available 05/30/2023 What Is Your Level Of Caffeine Consumption? None Information not available 05/30/2023 How Much Tobacco Do You Chew? None Information not available 05/30/2023 In The 14 Days Before Symptom Onset, Have You Had Close Contact With A Laboratory-confirm ed COVID-19 While That Case Was Ill? No Information n ot available 05/30/2023 In The 14 Days Before [...] Of Diet Are You Following? REGULAR Information n ot available 05/30/2023 What Is The Highest Grade Or Level Of School You Have Completed Or The Highest Degree You Have Received? [id number] Information not available 05/30/2023 Are There Any Guns Present In Your Home? Yes Information not available 05/30/2023 Do You Use Your Seat Belt Or Car Seat Routinely? Yes [email or web address] Information not available 07/17/2023 Do You Have Smoke And Carbon Monoxide Detectors In Your Home? Yes Information not available 05/30/2023 How Much Tobacco Do You Smoke? No Information not available 05/30/2023 Do You Use Sunscreen Routinely? No Information not available 05/30/2023 Have You Used IV Drugs? No Information not available 05/30/2023 Do You Have Difficulty Walking Or Climbing Stairs? No [email or web address] Information not available 07/23/2023 Sex: Unknown Functional Status Question Answer Note LastModified by Organizat ion Details LastModified Time Do you use any illicit or recreational drugs? No Information not available 05/30/2023 What is your level of alcohol consumption? Occasional Information not available 05/30/2023 Are you able to walk independently without assistance or assistive devices? YESWOREST Information not available 05/30/2023 Are you able to care for yourself independently? 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 No [email or web address] Information not available 07/23/2023 What is your exercise level? Heavy Information not available 05/30/2023 Mental Status Question Answer Note LastModified by Organization D etails LastModified Time Do you feel stressed (tense, restless, nervous, or anxious, or unable to sleep at night)? [id number] Information not available 05/30/2023 Family History Nothing Reported. Medical History Condition Response Allergies (Food, seasonal, environmental ) N Other Y Breast Cancer N Drug/Latex Allergies/Reactions Y Blood Transfusion N Dermatologic Disorders N Lung Disease N Defects or Inherited Disease N Breast Problem N Gestational Diabetes N Hematologic disorders N Anesthesia Complications N History of STI Y Deep Vein Thrombosis N Polycystic ovary syndrome N Anxiety Disorder Y Autoimmune disease N Arthritis N Infertility N Polyps N Acid Reflux (GERD) Y History of abnormal pap Y Cancer N Stroke N Varicosities N Neurologic/Epilepsy N Endometriosis N High Cholesterol N Headaches Y Fibromyalgia N Kidney Disease N Heart Problems N Kidney or Bladder Problems N Thyroid Problems Y GI Problems Y Eating Disorder N Anemia Y Art (IVF or FET) N Psychiatric Illness N Ovarian Cancer N Diabetes N Pulmonary (TB, Asthma) N Hepatitis/Liver Disease N No Past Medical History N Eczema N Urinary Tract Infection N Abuse/Domestic Violence N Asthma N Trauma/Violence N Depression/ depression Y Heart Disease N Pre-Eclampsia N Hypertension N Osteoporosis N Thrombophilias N Gynecological History Statement/Question Response Abnormal Pap [...] Diagnosis SNOMED-CT Code Diagnosis ICD10 Code Diagnosis IMO Codes Diagnosis Note [id number] Girish Ray MD [place] [address] [address] 05/30/2023 09:57:08 05/30/2023 12:03:36 Menopausal symptom 13784928 N95.1 Mass of ovary 323201023 R19.09 27-year-ol d female presents for ER [...] . Talked about treatment of hot flashes [id number] Girish Ray MD [place] [address] [address] 05/30/2023 11:06:41 05/30/2023 13:52:54 CT of pelvis abnormal 2068611484 6573479 R93.89 R10.2 [id number] Girish Ray MD [place] [address] [address] 06/09/2023 11:20:53 06/09/2023 12:26:19 Gynecologic examination 52604106 Z01.419 Annual gynecologi chandler exam performed. Patient [...] or email. mammogram- ordered Pap smear- today [id number] Girish Ray MD [place] [address] [address] 07/17/2023 13:46:17 07/17/2023 15:09:58 Human papillomavirus deoxyribonucleic acid detected, high risk on cervical specimen 768126107 R87.810 colposcopy was performed of the vaginal cuff. Abnormal tissue was observed. It was biopsy. She tolerated it well. [id number] Girish Ray MD [place] [address] [address] 06/21/2024 15:08:08 06/21/2024 16:39:03 Mastodynia of bilateral breasts 5867747663 3275411 N64.4 We discussed her breast exam findings [...] and report any changes. Gynecologi c examination 02825927 Z01.419 Annual gynecologi chandler exam performed. Patient [...] PCP STI testing - requested Menopausal symptom 25872 002 N95.1 Discussed increasing dose of estradiol to 2 mg PO daily due to pt report of increasing hot flashes and vaginal dryness. Recommende d coconut oil to use during intercours e as lubricant. Risks/bene fits/AEs of continued use reviewed.D iscussed that HRT can contribute to generalize d breast tenderness . Venereal d isease screening [id number] Z11.3 Pt requested STI testing.Di scussed the [...] Recorded Advance Directives Directive None Recorded Payers Insurance Date Sequence Insurance Name Policy Number Policy Francis Covered Member ID Francis Member ID Guarantor Name 06/19/2024 1 [place] [id number] Nuris Mcallister e [id number] Nuris Lucas Notes Date Note Type Note Provider Name and Address Organization Details Recorded Time 4 text/html 27-year-old female presents for ER follow-up. She was [...] a while. We spent over 20 minutes [id number]. More than 50% was counseling. Talked about treatment of hot flashes Girish Ray MD [address], [place], [address], [facility] 05/30/2023 12:03:09 4 text/html Annual GYNReported by PatientHistoryFor history, patient reportsno gynecologic complaints.Genitourinary symptomsFor urinary symptoms, patient reportsno hematuriaandno incontinence. For vulva, patient reportsno genital lesion. For vagina, patient reportsnormal vaginal discharge.Breast symptomsFor breast, patient reportsno breast painandno breast lump.Endocrine symptomsFor sexual complaints, patient reportsno sexual complaints. For menopausal symptoms, patient reportsno menopausal symptomsandnormal vaginal lubrication.Psychological symptomsFor psychological symptoms, patient reportsno depressionandno anxiety.Preventative measuresFor preventive measures, patient reportsencourage self breast examinationandencourage regular exercise. Girish Ray MD [address], [place], [address], [facility] 06/09/2023 12:18:07 4 text/html 42-year-old female who presents for colposcopy after testing positive for HPV. To perform colposcopy of vagina. Status post hysterectomy. The procedure was explained to the patient. She understands the procedure. She understands the risks, benefits, and alternatives. She is completed the informed Girish Ray MD [address], [place], [address], [facility] 07/17/2023 14:57:02 5 text/html Annual R&D Lab Technician Post-MenopausalReported by PatientGenitourinary symptomsFor menopausal symptoms, patient reportshot flashes,inadequacy of lubrication of vaginal mucosa, andinsomnia due to night sweats. For vaginal bleeding, patient reportshistory of menopause having occurredandno history of post menopausal bleeding. For urinary symptoms, patient reportsno hematuria,no incontinence,no nocturia, andno urinary frequency. For vulva, patient reportsno genital lesionandno vulvar atrophy. For vagina, patient reportsnormal vaginal dischargeandno vaginal atrophy.Breast symptomsFor breast, patient reportsbreast painbut reportsno breast lumpandno nipple discharge.Psychological symptomsFor sexual complaints, patient reportsno sexual complaints. For psychological symptoms, patient reportsno depressionandno anxiety.Preventative measuresFor preventive measures, patient reportsencourage regular mammograms starting age 40,encourage self breast examination,encourage regular exercise, andencourage no tobacco use. Patient here for annual exam.Patient hx of total hyst with left oophorectomy.Patient has been on HRT with estradiol 1 [...] nipple discharge, lumps, or skin changes. SYDNI JIMENEZ NP [address], [place], [address], [facility] 06/21/2024 16:38:45 OBGyn Episode Ob Episode Information Episode Created Date Number of Fetuses Patient Bloodtype Patient rh Status Prepregnancy Weight lbs Domestic Partner Domestic Partner Phone Father Name Manager Respiratory Status 05/30/19 24 1 CLOSED Fetus Data First Name Last Name Admitted to NICU Weight (g) Sex Living Outcome Pediatric Complications Fetus ID Race Codes Race Delivery Type 3968.93 M Full Term 94746 Repeat Jarod Calculation Initial Jarod Date Initial [...] Domestic Partner Domestic Partner Phone Father Name Manager Respiratory Status 05/30/19 24 1 CLOSED Fetus Data First Name Last Name Admitted to NICU Weight (g) Sex Living Outcome Pediatric Complications Fetus ID Race Codes Race Delivery Type 3883.65 4704 F Full Term 40142 Primary Jarod Calculation Initial Jarod Date Initial [...] Domestic Partner Domestic Partner Phone Father Name Manager Respiratory Status 05/30/19 24 1 CLOSED Fetus Data First Name Last Name Admitted to NICU Weight (g) Sex Living Outcome Pediatric Complications Fetus ID Race Codes Race Delivery Type , Spontane ous 31100 Jarod Calculation Initial Jarod Date Initial Exam [...] Domestic Partner Domestic Partner Phone Father Name Manager Respiratory Status 05/30/19 24 1 CLOSED Fetus Data First Name Last Name Admitted to NICU Weight (g) Sex Living Outcome Pediatric Complications Fetus ID Race Codes Race Delivery Type , Spontane ous 98839 Jarod Calculation Initial Jarod Date Initial Exam [...]
--- OUTSIDE RECORDS SUMMARY | 2025-03-10 20:06 | XMS_ITS | Clinical Summary ---
Author Organization [facility] Address [address] [place] [address] Care Team Providers Care Electronic Repair Troubleshooter Name Role Phone Laith Krishnamurthy MD Primary Care Provider Travis Fuentes FRUIT CUTTER Unavailable [phone] Allergies Active Allergy Reactions Criticality Noted Date [...] drink = 0.6 oz pur e alcohol) [facility] Utilities Answer Date Recorded In the past 12 months has e [employer], [employer], or [employer] threatened to shut off services in your home? No 12/01/2023 Social Connection and Isolation Panel Answer Date Recorded In a typical week, how many times do you talk on the phone with family, friends, or neighbors? More than three times a week 12/01/2023 How often do you get togethe r with friends or relatives? More than three times a week 12/01/2023 How often do you attend chur ch or jain services? Never 12/01/2023 Do you belong to any clubs o r organizations such as denominational groups, unions, fraternal or athletic groups, or [...] any time in the past 12 m [place], were you homeless or living in a prison (including now)? No 12/01/2023 Personal Safety Answer Date Recorded Have you ever been in or are you currently in a harmful physical or emotional relationship or is someone making you feel afraid or unsafe? 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, fine dining server Not on file Not on file [...] 11:45 PM CDT Height 157.5 cm (5' 2) 12/11/2023 11:45 PM CDT Body Mass Index 39.93 12/11/2023 11:45 PM CDT Plan of Treatment Health Maintenance Due Date Last Done Comments Breast Cancer Screening-Mammogram 1980 Hepatitis C Screening 1980 DTaP/Tdap/Td Vaccine (1 - Tdap) 12/23/1991 Varicella Vaccines (1 of 2 - 13+ 2-dose series) 1993 Hepatitis B Screening 1998 Regular Well Visit/Exam 18-64 1998 HPV Vaccines (1 - 3-dose SCD M series) 12/23/2007 Depression Screening 12/10/2024 12/11/2023 Influenza Vaccine (#1) 2025 Pneumococcal vaccine <65 Aged Out No longer eligible based on patient's age to complete this topic Medical Devices Implanted Type Area Audit Machine Operator Device Identifier Shelf Expiration Date Model / Serial / Lot [employer] Enrique Contour 6fr 24cm Large Inner Lumen Low Profile Bladder Yaya Taper Latex Free 180-222 - [id number] Implanted:Qty: 1 on 11/30/2023 by Harley Marcano MD at [facility] Left: Ureter [employer] Enrique 04/11/2026 [id number] / / [id number] Insurance [facility] ANTH ACCESS CHOICE Advance Directives For more information, please contact: [phone] * Full Code (Latest Code Status on File) Date Activated Date Inactivated Comments 12/11/2023 10:38 AM 12/12/2023 3:47 PM * Full Code Date Activated Date Inactivated Comments 11/30/2023 11:03 AM 12/03/2023 6:13 PM Care Teams Electronic Repair Troubleshooter Relationship Specialty Start Date End Date Laith Krishnamurthy MD PCP - General 03/28/19 Travis Fuentes NP Nurse Practitioner Urology 12/03/23
--- OUTSIDE RECORDS SUMMARY | 2025-03-10 20:06 | XMS_ITS | Encounter Summary ---
Author Organization [facility] Address [address] [place] [address] Phone Care Team Providers Care Sponge Maker Name Role Phone Laith Krishnamurthy MD Primary Care Provider Emy Pepe APRN, LOGISTICS PROJECT MANAGER Unavailable Tono Wade MD Unavailable [phone] Reason for Visit * Reason Comments Medication Refill Encounter Details Date Type Department Care Team (Late st Contact Info) Description 03/12/2023 Refill [facility]rology - [place] [address] [place] [address] Emy Pepe APRN, LOGISTICS PROJECT MANAGER [address] [place] [address] Medication Refill Social History Tobacco Use Types [...] Provider Dept 10/11/22 Telemedicine Emy Pepe APRN, LOGISTICS PROJECT MANAGER [facility] Neurology [facility] 08/27/22 Office Visit Emy Pepe APRN, [facility] Showing recent visits within past 365 days and meeting all other requirements Future Appointments No visits were found meeting these conditions. Showing future appointments within next 90 days and meeting all other requirements STRIAL DESIGNER documented in this encounter Plan of Treatment Upcoming Encounters Date Type Department Care Team (Late st Contact Info) Description 03/21/2025 11:00 AM INDUSTRIAL DESIGNER Telemedicine [facility] [address] [place] [address] Emy Pepe APRN, [facility] [address] [place] [address] 06/10/2025 1:00 PM INDUSTRIAL DESIGNER Procedure Visit [facility] Neurology [facility] [address] [place] [address] Tono Wade MD [address] [place] [address] documented as of this encounter Visit Diagnoses Diagnosis Episodic migraine documented in this encounter Care Teams Sponge Maker Relationship Specialty Start Date End Date Laith Krishnamurthy MD PCP - General Family Medicine 07/04/17 Emy Pepe APRN, LOGISTICS PROJECT MANAGER [address] [place] [address] Nurse Practitioner Advanced Practice Nurse 08/27/22 Tono Wade MD [address] [place] [address] Consulting Physician Neurology 05/28/24 documented as of this encounter
--- OUTSIDE RECORDS SUMMARY | 2025-03-10 20:06 | XMS_ITS | Encounter Summary ---
Author Organization [facility] Address [address] [place] [address] Phone Care Team Providers Care Aircraft Shipping Checker Name Role Phone Laith Krishnamurthy MD Primary Care Provider Emy Pepe APRN, CRUSHER TENDER Unavailable + [phone] Tono Wade MD Unavailable [phone] Reason for Visit * Reason Comments Medication Refill Encounter Details Date Type Department Care Team (Late st Contact Info) Description 03/12/2020 [facility]ill [facility] - [place] [address] [place] [address] Tono Wade MD [address] [place] [address] Medication Refill Social History Tobacco [...] st Contact Info) Description 03/21/2025 11:00 AM DESPATCHING AND RECEIVING CLERK Telemedicine [facility] [place] [address] [facility] [place] [address] Emy Pepe APRN, CRUSHER TENDER [address] [place] [address] 06/10/2025 1:00 PM DESPATCHING AND RECEIVING CLERK Procedure Visit [facility] Neurology [facility] [address] [place] [address] Tono Wade MD [address] [place] [address] documented as of this encounter Visit Diagnoses Diagnosis Migraine without aura and without status migrainosus, not intractable Migraine without aura, without mention of intractable migraine without mention of status migrainosus documented in this encounter Care Teams Aircraft Shipping Checker Relationship Specialty Start Date End Date Laith Krishnamurthy MD PCP - General Family Medicine 07/04/17 Emy Pepe, FURNACE CONVERTER, CRUSHER TENDER [address] [place] [address] Nurse Practitioner Advanced Practice Nurse 08/27/22 Tono Wade MD [address] [place] [address] Consulting Physician Neurology 05/28/24 documented as of this encounter
--- OUTSIDE RECORDS SUMMARY | 2025-03-10 20:06 | XMS_ITS | Encounter Summary ---
Author Organization [facility] Address [address] [place] [address] Phone Care Team Providers Care Geomagnetician Name Role Phone Laith Krishnamurthy MD Primary Care Provider Emy Pepe APRN, APPEALS REFEREE Unavailable + [phone] Tono Wade MD Unavailable [phone] Reason for Visit * Reason Comments Medication Refill Encounter Details Date Type Department Care Team (Late st Contact Info) Description 10/02/2021 Refill [facility] [address] [address] Tono Wade MD [address] [place] [address] Medication Refill Social History Tobacco [...] st Contact Info) Description 03/21/2025 11:00 AM EDI MANAGER Telemedicine [facility] [address] [place] [address] Emy Pepe APRN, APPEALS REFEREE [address] [place] [address] 06/10/2025 1:00 PM EDI MANAGER Procedure Visit [facility] [address] [place] [address] Tono Wade MD [address] [place] [address] documented as of this encounter Visit Diagnoses Diagnosis Migraine without aura and without status migrainosus, not intractable Migraine without aura, without mention of intractable migraine without mention of status migrainosus documented in this encounter Care Teams Geomagnetician Relationship Specialty Start Date End Date Laith Krishnamurthy MD PCP - General Family Medicine 07/04/17 Emy Pepe APRN, APPEALS REFEREE [address] [place] [address] Nurse Practitioner Advanced Practice Nurse 08/27/22 Tono Wade MD [address] [place] [address] Consulting Physician Neurology 05/28/24 documented as of this encounter
== END 2025-03-10 14:26 | disposition home or self-care (01) ==
PROVIDERS: Emergency Provider Nurse Practitioner; PCP Family Medicine
DX: M62.830 Muscle spasm of back (principal); E03.9 Hypothyroidism, unspecified
CPT/HCPCS: 99213; G0463